=== PATIENT | female | born 1955 | race Caucasian/White ===

== ENCOUNTER 2020-02-18 13:07 | Outpatient (CLI) | payer MEDICARE, OTHER, SELFPAY ==
--- NOTE | 2020-02-18 13:11 | CT_ITS ---
WS: [id number] LDCT LUNG CANCER SCREENING TECHNIQUE: Noncontrast CT of the chest with coronal and sagittal reformatted images. CLINICAL INFORMATION: NICOTINE DEPENDENCE LUNG SCREENING COMPARISON: CT chest 4 15,019 and multiple prior examinations dating back to 2017. DLP: 49.04 mGy.cm DIvol: 1.[address] scans at [facility] use at least one of these dose optimization techniques: automat ed exposure control; mA and/or kV adjustment per patient size (includes targeted exams where dose is matched to clinical indication); or iterative reconstruction. FINDINGS: Multiple noncalcified pulmonary nodules the largest in the right upper lobe measuring 12 mm unchanged since 2017. Multiple smaller subcentimeter noncalcified pulmonary nodules appear stable. Additional notable 6 mm pulmonary nodule in the right lower lobe medially. This is also stable. No mediastinal o r hilar lymphadenopathy. Normal caliber thoracic aorta. Normal GE junction. CT/CT lung screening [id number] IMPRESSION: LUNG-RADS: 2-Benign Appearance or Behavior FOLLOW UP: 12 Month: Continue annual screening with LDCT
== END 2020-02-18 13:08 | disposition home or self-care (01) ==
LOC: CT 13:09
PROVIDERS: PCP Family Medicine; Visit Provider Internal Medicine Critical Care Medicine
DX: Z12.2 Encounter for screening for malignant neoplasm of respiratory organs (principal); F17.210 Nicotine dependence, cigarettes, uncomplicated
CPT/HCPCS: G0297

== ENCOUNTER → 2020-03-10 13:22 | Outpatient (BNVA) | payer MEDICARE, OTHER, SELFPAY | PROVIDERS: PCP Family Medicine; Visit Provider Internal Medicine | DX: J44.9 Chronic obstructive pulmonary disease, unspecified (principal); Z20.828 Contact with and (suspected) exposure to other viral communicable diseases | CPT/HCPCS: 87635 ==

== ENCOUNTER 2020-03-15 06:48 | Outpatient (CLI) | payer MEDICARE, OTHER, SELFPAY ==
[2020-03-15 08:24] LABS: Basophils # 0.1 10^3/uL (0.0-0.1); Basophils % 0.6 %; Eosinophils # 0.2 10^3/uL (0.0-0.8); Eosinophils % 2.2 %; Hematocrit 63.4 % (37.0-47.0); Hemoglobin 19.4 g/dL (11.5-15.3); Lymphocytes # 2.9 10^3/uL (0.8-4.8); Lymphocytes % 37.1 %; Mean Corpuscular HGB Conc 30.6 g/dL (30.0-36.0); Mean Corpuscular Hemoglobin 27.1 pg (28.0-34.0); Mean Corpuscular Volume 88.4 fL (81-99); Mean Platelet Volume 8.4 fL (7.4-10.4); Monocytes # 0.4 10^3/uL (0.2-0.9); Monocytes % 4.9 %; Neutrophils # 4.23 10^3/uL (1.8-7.7); Neutrophils % 54.8 %; Nucleated Red Blood Cells % 0 %; Platelet Count 184 10^3/cmm (130-400); Red Blood Count 7.17 10^6/uL (4.1-5.3); Red Cell Distribution Width 20.5 % (12.1-15.1); White Blood Count 7.7 10^3/uL (4.0-10.0)
[2020-03-15 10:03] VITALS: BP 109/71
--- NOTE | 2020-03-15 10:09 | PFTS_ITS ---
Date of Study:03/15/20 Date of Dictation: MECHANICS: Forced vital capacity (FVC) is reduced. Forced expiratory volume in one second (FEV1) is reduced. FEV1/FVC is reduced. FLOW VOLUME LOOP: Reduced flow at all lung volumes with significant scooping. LUNG VOLUMES: Total lung capacity (TLC) is normal. Residual volume (RV) is increased. DIFFUSING CAPACITY FOR CARBON MONOXIDE: Moderately reduced. INTERPRETATION: The spirometry is consistent with moderate obstruction. There is a significant postbronchodilator response. Lung volumes are consistent with air trapping. Gas exchange (DLCO) is moderately reduced. MTDD
[2020-03-15 10:24] LABS: Alanine Aminotransferase 18 U/L (0-33); Albumin Level 3.8 g/dL (3.5-5.2); Alkaline Phosphatase 85 IU/L (35-105); Anion Gap 14.1 (5-19); Aspartate Amino Transferase 18 U/L (0-32); Blood Urea Nitrogen 15 mg/dL (8-23); Calcium 9.8 mg/dL (8.5-10.5); Carbon Dioxide 31 mmol/L (22-29); Chloride 96 mmol/L (98-107); Globulin 3.6 g/dL (1.3-4.6); Glomerular Filtration Rate 62.8 mL/min (90-130); Glucose 140 mg/dL (65-115); Osmolality Calculated 287 mOsm/kg (285-295); Potassium 4.1 mmol/L (3.5-5.1); Sodium 137 mmol/L (136-145); Total Bilirubin 0.4 mg/dL (0.15-1.2); Total Protein 7.4 g/dL (6.6-8.7)
== END 2020-03-15 06:49 | disposition home or self-care (01) ==
LOC: RT 06:48
PROVIDERS: PCP Family Medicine; Visit Provider Internal Medicine Critical Care Medicine
DX: J44.9 Chronic obstructive pulmonary disease, unspecified (principal)
CPT/HCPCS: 36415; 80053; 85025; 94060; 94618; 94726; 94729; J7611

== ENCOUNTER 2020-03-30 11:00 | Outpatient (CLI) | payer MEDICARE, OTHER, SELFPAY | END 2020-03-30 11:01 | disposition home or self-care (01) | LOC: SLEEP 04-03 11:35 | PROVIDERS: PCP Family Medicine; Visit Provider Internal Medicine Critical Care Medicine | DX: J96.11 Chronic respiratory failure with hypoxia (principal) | CPT/HCPCS: 94762 ==

== ENCOUNTER 2020-03-30 11:17 | Outpatient (CLI) | payer MEDICARE, OTHER, SELFPAY ==
[2020-03-30 12:06] LABS: Alanine Aminotransferase 17 U/L (0-33); Albumin Level 3.5 g/dL (3.5-5.2); Alkaline Phosphatase 85 IU/L (35-105); Anion Gap 14.8 (5-19); Aspartate Amino Transferase 14 U/L (0-32); Blood Urea Nitrogen 25 mg/dL (8-23); Calcium 9.8 mg/dL (8.5-10.5); Carbon Dioxide 29 mmol/L (22-29); Chloride 99 mmol/L (98-107); Globulin 3.3 g/dL (1.3-4.6); Glucose 163 mg/dL (65-115); Osmolality Calculated 296 mOsm/kg (285-295); Potassium 3.8 mmol/L (3.5-5.1); Sodium 139 mmol/L (136-145); Total Bilirubin 0.4 mg/dL (0.15-1.2); Total Protein 6.8 g/dL (6.6-8.7)
[2020-03-31 17:13] LABS: Erythropoietin 19.6 mIU/mL (2.6-18.5)
== END 2020-03-30 11:18 | disposition home or self-care (01) ==
LOC: LAB 11:27
PROVIDERS: PCP Family Medicine; Visit Provider Internal Medicine Critical Care Medicine
DX: D75.1 Secondary polycythemia (principal); J44.9 Chronic obstructive pulmonary disease, unspecified
CPT/HCPCS: 80053; 82668

== ENCOUNTER 2020-10-08 01:28 | Emergency (ER) | payer MEDICARE, OTHER, SELFPAY ==
--- NOTE | 2020-10-08 01:29 | XRR_ITS ---
PROCEDURE INFORMATION: Exam: XR Chest Exam date and time: 10/08/2020 1:35 AM Age: 65 years old Clinical indication: Dyspnea; Additional info: Sob/dyspnea TECHNIQUE: Imaging protocol: XR of the chest. Views: 1 view. COMPARISON: CT chest w con* [id number] 10/05/2018 9:28 AM FINDINGS: Lungs: There is some indistinctness of the pulmonary vasculature seen. There are increased interstitial opacities present bilaterally , findings that could represent pulmonary edema. Additionally, there are patchy and strandy opacity seen in the lung bases bilaterally, right more prominent than left, findings that could represent superimposed bilateral pneumonia. Pleural spaces: Unremarkable. No pleural effusion. No pneumothorax. Heart/Mediastinum: Unremarkable. No cardiomegaly. Bones/joints: Unremarkable. XR/XR chest 1V portable [id number] IMPRESSION: 1. Indistinct pulmonary vasculature and increased interstitial opacities may represent pulmonary edema. 2. Patchy and strandy opacities in the lower hemithoraces may represent atelectasis although bilateral basilar pneumonia cannot be excluded.
--- NOTE | 2020-10-08 01:30 | ECG_ITS ---
[facility] Test Date: 2020-10-08 Pat Name: Ximena Montero Department: Room: Gender: Female Yard Supervisor: : 1955 Requested By: Lynda Montalvo Order Number: [id number] Nahum MD: Yana Cantor M.D. Measurements Intervals [place] Rate: 104 P: 62 CA: 136 QRS: 106 QRSD: 99 T: 48 QT: 329 QTc: 435 Interpretive Statements SINUS TACHYCARDIA RIGHT AXIS DEVIATION [QRS AXIS > 100] No previous ECG available for comparison Electronically Signed On 10-08-2020 10:48:49 CDT by Yana Cantor M.D. [id number]
[2020-10-08 01:35] VITALS: PULSE 110; RESP 26; TEMP 36.4; O2SAT 84; BMI 39.6
--- NOTE | 2020-10-08 01:47 | W.ED.SOB ---
HPI - SOB/Dyspnea General: Chief Complaint: Shortness of Breath/Dyspnea Stated Complaint: DIFFICULTY BREATHING Time Seen by Provider: 10/08/20 01:40 Source: patient Mode of arrival: ambulatory Limitations: no limitations History of Present Illness: HPI Narrative: 65-year-old female has a long history of COPD states that over the last day she has had increasing wheezing and dyspnea. She states she gets COPD exacerbations every time this year due to the season change in allergens. She states that she does have breathing treatments at home but did not take 1 today. She denies any fever. She had a dry cough. Denies any chest pain. Denies any worsening improving factors. MD elicited complaint: shortness of breath Associated symptoms: Deny abdominal pain, chest pain, fever(s), nausea or vomiting Review of Systems Const: Denies: fever(s), chills, body aches or change in appetite Eyes: Denies: blurry vision or eye discomfort ENMT: Denies: throat pain or dental pain Card: Denies: chest pain Resp: Reports: dyspnea and wheezing GI: Denies: abdominal pain, nausea, vomiting or diarrhea : Denies: dysuria Musc: Denies: neck pain or back pain Skin/Breast: Denies: rash Neuro: Denies: headache(s) Psych: Denies: depression Moses/Lymph: Denies: easy bruising All/Imm: Denies: urticaria PFSH ED PFSH: Medical History (Updated 10/08/20 @ 02:24 by Vivian Lennon MD) Aneurysm Chronic obstructive pulmonary disease Lung nodule Thyroid nodule Ulnar nerve disease Surgical History H/O exploratory laparotomy H/O knee surgery H/O left wrist surgery H/O shoulder surgery History of carpal tunnel surgery History of cholecystectomy History of hysterectomy Hx of tonsillectomy S/P excision of vocal cord nodule Family History Other CAD (coronary artery disease) Cancer Diabetes Social History Smoking and tobacco status: current every day smoker cigarettes Packs smoked per day: 1.5 Years cigarettes smoked: 45 Quit status (tobacco): has tried quititng Number of times tried to quit tobacco: 20 Second hand smoke exposure: No Smoking risk assessment/counseling performed?: Yes Alcohol intake: never Lives independently: Yes Household members: family Marital status: Current occupational status: disabled History of recent travel: No Current gender identity: Female Physical Exam Const: COMMON NORMALS: no acute distress, patient oriented x3 and healthy appearing HENMT: COMMON NORMALS: normocephalic and atraumatic HEAD & SCALP: normocephalic and atraumatic Eye: COMMON NORMALS: Equal, round and reactive pupils present and EOMs intact bilaterally PUPIL: Yes Equal, round and reactive pupils present Neck/C-Spine: COMMON NORMALS: full ROM and supple Chest: COMMONS NORMALS: normal inspection of the chest and normal palpation of entire chest wall Resp: COMMON NORMALS: normal respiratory effort, No retractions, No use of accessory muscles and clear to auscultation bilaterally AUSCULTATION: clear to auscultation bilaterally and wheezes Cardio: COMMON NORMALS: regular rate, regular rhythm and No murmurs present (Cardio) RATE: regular rate RHYTHM: regular rhythm GI: COMMON NORMALS: Normal to inspection, nondistended, normoactive bowel sounds present, Soft to palpation, non-tender and no masses PALPATION: Yes Soft to palpation Extremity: COMMON NORMALS: normal to inspection and full ROM Neuro: COMMON NORMALS: patient oriented x3, moves all extremities and no focal motor deficits Psych: COMMON NORMALS: mental status grossly normal, Normal thought process present and cooperative THOUGHT PROCESS: Normal thought process present Skin: COMMON NORMALS: no rashes or lesions noted and no wounds GENERAL SKIN EXAM: no rashes or lesions noted Course Vital Signs: Vital signs: Vital Signs Temperature 97.6 F 10/08/20 01:35 Pulse Rate 107 H 10/08/20 02:00 Respiratory Rate 20 H 10/08/20 01:59 Blood Pressure 146/80 10/08/20 01:59 Pulse Oximetry 94 10/08/20 01:59 MDM - SOB/Dyspnea MDM Narrative: Medical decision making narrative: Patient presents with COPD exacerbation. He has had a increased cough as well as will place on Keflex for possible bronchitis. She feels much improved here after breathing treatments. Patient was given IV steroids here. We will place her on prednisone at home as well. She is to follow-up with PCP and return if worsening. She understands agrees to plan. Lab Data: Labs: Lab Results 10/08/20 10/08/20 Range/Units 01:50 01:50 WBC 8.7 (4.0-10.0) 10^3/ uL RBC 6.83 H (4.1-5.3) 10^6/u L Hgb 19.6 H (11.5-15.3) g/dL Hct 62.1 H (37.0-47.0) % MCV 90.9 (81-99) fL MCH 28.7 (28.0-34.0) pg MCHC 31.6 (30.0-36.0) g/dL RDW 19.7 H (12.1-15.1) % Plt Count 191 (130-400) 10^3/c mm MPV 9.1 (7.4-10.4) fL Neut % (Auto) 83.0 % Lymph % (Auto) 9.9 % Wise % (Auto) 5.2 % Eos % (Auto) 0.5 % Baso % (Auto) 0.9 % Neut # (Auto) 7.21 (1.8-7.7) 10^3/u L Lymph # (Auto) 0.9 (0.8-4.8) 10^3/u L Wise # (Auto) 0.5 (0.2-0.9) 10^3/u L Eos # (Auto) 0.0 (0.0-0.8) 10^3/u L Baso # (Auto) 0.1 (0.0-0.1) 10^3/u L Nucleated RBC % (a uto) 0 % Nucleated RBCs # 0.0 /100WBC Sodium 134 L (136-145) mmol/L Potassium 4.1 (3.5-5.1) mmol/L Chloride 94 L (98-107) mmol/L Carbon Dioxide 31 H (22-29) mmol/L Anion Gap 13.1 (5-19) BUN 15 (8-23) mg/dL Creatinine 0.6 (0.5-0.9) mg/dL GFR Calculation 100.0 (90-130) mL/min Glucose 110 (65-115) mg/dL Calculated Osmolal ity 279 L (285-295) mOsm/k g Calcium 9.4 (8.5-10.5) mg/dL Total Bilirubin 0.7 (0.15-1.2) mg/dL AST 17 (0-32) U/L ALT 17 (0-33) U/L Alkaline Phosphata se 93 (35-105) IU/L Total Protein 7.6 (6.6-8.7) g/dL Albumin 4.0 (3.5-5.2) g/dL Globulin 3.6 (1.3-4.6) g/dL Imaging Data^: CXR: Attestation: I personally reviewed and interpreted this imaging study as follows: My impression: No acute abnormality EKG Data^: EKG 1: Attestation: I personally reviewed and interpreted this EKG as follows: EKG Interpretation Date: 10/08/20 EKG interpretation time: 02:06 Interpretation: sinus tach hr [address] or t wave abnormalities qrs 99 qtc 390 Discharge Plan Discharge Patient Disposition: Home Clinical Impression: Acute exacerbation of chronic obstructive airways disease Condition: Stable Prescriptions: New cephalexin 500 mg capsule 500 mg PO QID 7 Days Qty: 28 RF: 0 prednisone 50 mg tablet 50 mg PO DAILY Qty: 5 RF: 0 ondansetron 4 mg tablet,disintegrating 4 mg PO Q6H PRN (Reason: nausea and vomiting) Qty: 14 RF: 0 No Action potassium chloride [Klor-Con 10] 10 mEq tablet extended release 10 meq PO BID RF: 0 furosemide [Lasix] 20 mg tablet 10 mg PO BID PRN (Reason: edema) RF: 0 lisinopril-hydrochlorothiazide 10-12.5 mg tablet 1 tab PO DAILY RF: 0 cetirizine [Allergy Relief (cetirizine)] 10 mg tablet 10 mg PO DAILY PRNRF: 0 cholecalciferol (vitamin D3) 125 mcg (5,000 unit) capsule 125 mcg PO DAILY RF: 0 meloxicam 15 mg tablet 15 mg PO DAILY RF: 0 sucralfate [Carafate] 1 gram tablet 1 gm PO Q6H RF: 0 albuterol sulfate [ProAir HFA] 90 mcg/actuation HFA aerosol inhaler 2 puff INHALATION Q6H PRNRF: 0 ipratropium-albuterol 0.5 mg-3 mg(2.5 mg base)/3 mL solution for nebulization 3 ml INHALATION Q4H PRN (Reason: shortness of breath or wheezing) 90 Days Qty: 1620 RF: 3 azithromycin 250 mg tablet 250 mg PO .QOD 90 Days Qty: 45 RF: 3 Discharge Orders: Discharge ED (Routine); Ordered 10/08/20 Ordered By: Vivian Lennon Referrals: Gustavo Thompson MD [Primary Care Provider] - 1-3 days Discharge Diet: Advance as tolerated Discharge Activity: Resume usual activity Patient Instructions: Chronic Obstructive Pulmonary Disease (ED), Chronic Bronchitis (ED) Coding Level of Care Code ED Maintenance Supervisor 2Nd Shift for Clareg Fwd Exam Comprehensive
[2020-10-08 01:55] VITALS: PULSE 111; RESP 24; O2SAT 94
[2020-10-08] MEDS: ipratropium-albuterol 3 mL Neb INHALATION (01:55)
[2020-10-08 01:58] LABS: Basophils # 0.1 10^3/uL (0.0-0.1); Basophils % 0.9 %; Eosinophils % 0.5 %; Hematocrit 62.1 % (37.0-47.0); Hemoglobin 19.6 g/dL (11.5-15.3); Lymphocytes # 0.9 10^3/uL (0.8-4.8); Lymphocytes % 9.9 %; Mean Corpuscular HGB Conc 31.6 g/dL (30.0-36.0); Mean Corpuscular Hemoglobin 28.7 pg (28.0-34.0); Mean Corpuscular Volume 90.9 fL (81-99); Mean Platelet Volume 9.1 fL (7.4-10.4); Monocytes # 0.5 10^3/uL (0.2-0.9); Monocytes % 5.2 %; Neutrophils # 7.21 10^3/uL (1.8-7.7); Nucleated Red Blood Cells % 0 %; Platelet Count 191 10^3/cmm (130-400); Red Blood Count 6.83 10^6/uL (4.1-5.3); Red Cell Distribution Width 19.7 % (12.1-15.1); White Blood Count 8.7 10^3/uL (4.0-10.0)
[2020-10-08 01:59] VITALS: BP 146/80; PULSE 105; RESP 20; O2SAT 94
[2020-10-08 02:00] VITALS: PULSE 107
--- NOTE | 2020-10-08 02:11 | PC.NURSE ---
EKG taken and given to Dr. Lennon
[2020-10-08 02:19] LABS: Alanine Aminotransferase 17 U/L (0-33); Alkaline Phosphatase 93 IU/L (35-105); Anion Gap 13.1 (5-19); Aspartate Amino Transferase 17 U/L (0-32); Blood Urea Nitrogen 15 mg/dL (8-23); Calcium 9.4 mg/dL (8.5-10.5); Carbon Dioxide 31 mmol/L (22-29); Chloride 94 mmol/L (98-107); Globulin 3.6 g/dL (1.3-4.6); Glucose 110 mg/dL (65-115); Osmolality Calculated 279 mOsm/kg (285-295); Potassium 4.1 mmol/L (3.5-5.1); Sodium 134 mmol/L (136-145); Total Bilirubin 0.7 mg/dL (0.15-1.2); Total Protein 7.6 g/dL (6.6-8.7)
[2020-10-08 02:41] VITALS: BP 92/67; PULSE 108; RESP 20; O2SAT 94
== END 2020-10-08 02:41 | disposition home or self-care (01) ==
PROVIDERS: Nurse Practitioner Family; Emergency Provider Emergency Medicine; PCP Family Medicine
DX: J44.1 Chronic obstructive pulmonary disease with (acute) exacerbation (principal); F17.210 Nicotine dependence, cigarettes, uncomplicated
CPT/HCPCS: 71045; 80053; 85025; 93005; 94640; 96374; 99284; J2930; J7611

== ENCOUNTER 2021-01-26 14:31 | Outpatient (CLI) | payer MEDICARE, OTHER, SELFPAY ==
--- NOTE | 2021-01-26 | USCV_ITS ---
Ximena Montero Age: 65 Gender: F : 1955 Exam Date: 01/26/2021 14:58 Ordering Phys: Gustavo Thompson MD Technologist: Terese Salamanca Exam Location: [facility] [place] Indication: RLE PAIN AND SWELLING HISTORY: Lower extremity swelling lower extremity pain. PROCEDURES: Venous duplex imaging was performed in only the right lower extremity. The following venous structures were evaluated: common femoral vein, profunda vein, proximal portion of the greater saphenous vein, superficial femoral vein, and the popliteal vein. In addition, the posterior tibial and peroneal trunk were evaluated. Serial compression, augmentation maneuvers, and spectral Doppler flow evaluation were performed. FINDINGS: Non-compressible , dilated Gastrocnemius vein seen. Normal 2-D Doppler and augmentation and compressibility throughout the lower extremity venous structures. Additional imaging through the proximal calf veins also reveals no thrombus. Limited evaluation of the greater saphenous vein is patent with no thrombus.. Spoke with Dr. Thompson at 1510 to direct patient to Pharmacy to cook pickled meat Blood thinners CONCLUSIONS No DVT right lower extremity. Right superficial thrombophlebitis. Report called by sample processor. Dr. Montserrat Buchanan DO (Electronically Signed) Final Date: 26 January 2021 15:32 S
== END 2021-01-26 14:32 | disposition home or self-care (01) ==
PROVIDERS: PCP Family Medicine; Visit Provider Family Medicine
DX: M79.89 Other specified soft tissue disorders (principal); M79.604 Pain in right leg; I80.01 Phlebitis and thrombophlebitis of superficial vessels of right lower extremity
CPT/HCPCS: 93971

== ENCOUNTER 2021-12-03 10:13 | Emergency (ER) | payer MEDICARE, SELFPAY ==
[2021-12-03 10:15] VITALS: BP 108/56; PULSE 100; RESP 18; TEMP 36.5; O2SAT 80; BMI 39.1
--- NOTE | 2021-12-03 10:26 | PC.NURSE ---
PATIENT REFUSING TO CHANGE OXYGEN TO WALL OXYGEN- PATIENT STATES SHE IS STAYING ON HER HOME OXYGEN. PATIENT ALSO STATES THAT SHE IS NOT GOING TO BE SEEN BY DR QUAN- 'HE PISSES ME OFF!'
--- NOTE | 2021-12-03 10:30 | XR_ITS ---
WS: [id number] PORTABLE CHEST HISTORY: fluid retention COMPARISON: 10/08/2020 Mild pulmonary hyperinflation. Diffuse thickening of the interstitium. No focal area of consolidation . No nodule. No pleural effusion or pneumothorax. Cardiac size: Normal. Mediastinum/Aorta: Normal mediastinum. No osseous abnormality seen. XR/XR chest 1V portable [id number] IMPRESSION: 1. Mild emphysema. 2. Diffuse interstitial thickening probably related to chronic interstitial eloina ng disease as similar findings were seen on the prior study. A small amount of interstitial edema may appear similar.
--- NOTE | 2021-12-03 10:31 | ECG_ITS ---
[facility] Test Date: 2021-12-03 Pat Name: Ximena Montero Department: Room: Gender: Female Supervisor Looping: : 1955 Requested By: Daisy Montiel Order Number: [id number] Nahum MD: Danyelle Gann M.D. Measurements Intervals [place] Rate: 89 P: 69 ID: [id number] QRS: 145 QRSD: 89 T: 51 QT: 365 QTc: 444 Interpretive Statements SINUS RHYTHM RIGHT AXIS DEVIATION [QRS AXIS > 100] POSSIBLE ANTERIOR MYOCARDIAL INFARCTION , OF INDETERMINATE AGE [30 ms Q WAVE IN V3/V4, OR R < 0.2 mV IN V4] Compared to ECG 10/08/2020 02:06:57 Myocardial infarct finding now present Sinus tachycardia no longer present Electronically Signed On 12-03-2021 19:40:54 CDT by Danyelle Gann M.D. [id number]
--- NOTE | 2021-12-03 10:37 | ED_ITS ---
HPI - Extremity Problem General: Chief complaint: Extremity Problem,Nontraumatic Stated complaint: fluid retention Time Seen by Provider: 12/03/21 10:22 Source: patient Mode of arrival: wheelchair Limitations: no limitations History of Present Illness: Patient is a 66-year-old female with a history of COPD/emphysema/chronic respiratory failure on 4L O2 continuously, HTN, bilateral leg swelling, polycythemia, chronic smoker who presents to ED today with a complaint of left lower leg swelling. Patient states she chronically has swelling to her bilateral lower legs and states they often do seem to alternate with one leg always being worse than the other. She treats with Lasix 40 mg twice daily. Patient states over the past several days she has noticed worsening swelling to her left leg. No injury or trauma. She does not complain of shortness of breath or difficulty breathing. Patient states she normally sats in the mid 80s on her 4 L of oxygen at home. She continually tells me that my breathing is normal and does not want any evaluation for that. MD Complaint: extremity pain and extremity swelling Onset (ago): day(s) Pain Consistency: constant Location: left and lower extremity Radiation: none Exacerbating factors: weight bearing and walking Associated symptoms: Reports no associated symptoms; Deny chest pain, fever(s) or rash Review of Systems Const: Denies: fever(s), chills, body aches, fatigue or malaise Eyes: Denies: change in vision or blurry vision Card: Reports: edema (chronic), swelling of feet/ankles, dyspnea on exertion (chronic) and orthopnea (chronic); Denies: chest pain, palpitations, irregular heart rhythm, lightheadedness, syncope or pre-syncope Resp: Reports: dyspnea (at baseline) and productive cough (chronic); Denies: pain on inspiration GI: Denies: abdominal pain, nausea, vomiting, heartburn or diarrhea : Denies: dysuria Musc: Reports: extremity pain and extremity swelling (L LE); Denies: neck pain, back pain, joint pain, joint swelling or joint redness Skin/Breast: Denies: rash Neuro: Denies: headache(s), numbness in extremities, weakness in extremities or sensory changes PFS ED PFSH: Medical History Aneurysm Chronic obstructive pulmonary disease Lung nodule Thyroid nodule Ulnar nerve disease Surgical History H/O exploratory laparotomy H/O knee surgery H/O left wrist surgery H/O shoulder surgery History of carpal tunnel surgery History of cholecystectomy History of hysterectomy Hx of tonsillectomy S/P excision of vocal cord nodule Family History Other CAD (coronary artery disease) Cancer Diabetes Social History Smoking and tobacco status: current every day smoker cigarettes Packs smoked per day: 1.5 Years cigarettes smoked: 46 Quit status (tobacco): has tried quititng Number of times tried to quit tobacco: 20 Second hand smoke exposure: Yes Smoking risk assessment/counseling performed?: Yes Alcohol intake: never Counseling given: No Counseling given: No Lives independently: Yes Household members: family Marital status: Current occupational status: disabled History of recent travel: No Current gender identity: Female Physical Exam Const: COMMON NORMALS: no acute distress, patient oriented x3, no limitations and alert GENERAL APPEARANCE: cooperative ORIENTATION/CONSCIOUSNESS: Yes awake, Yes oriented to person, Yes oriented to place and Yes oriented to time HENMT: COMMON NORMALS: normocephalic and atraumatic HEAD & SCALP: normal to inspection, normocephalic and atraumatic Resp: COMMON NORMALS: normal respiratory effort AUSCULTATION: diminished lung sounds Cardio: COMMON NORMALS: regular rate and regular rhythm RATE: regular rate RHYTHM: regular rhythm Extremity: GENERAL: Yes normal exam except as noted OTHER: bilateral L>R lower extremity edema; she has palpable DP/PT pulses bilaterally with normal cap refill; sensory intact; no bony abnormalities; no skin lesions present Neuro: COMMON NORMALS: patient oriented x3, moves all extremities, no focal motor deficits and no sensory deficits noted SENSORIUM/ORIENTATION: Yes alert, Yes oriented to person, Yes oriented to place and Yes oriented to time Course Vital Signs: Vital signs: Vital Signs Temperature 97.7 F 12/03/21 10:15 Pulse Rate 96 12/03/21 12:20 Respiratory Rate 20 H 12/03/21 10:49 Blood Pressure 108/71 12/03/21 12:20 Pulse Oximetry 96 12/03/21 12:20 MDM - Extremity (Nontraumatic) Medical Decision Making Patient's vital signs are stable. She is satting in the 90s on 4L currently which she states is at or better than her baseline. She has no complaints of shortness of breath. On her blood work she has a hemoglobin of 20.5. There is a history of polycythemia looking at previous documentation however patient seems surprised when I mention this. She states she has never received any form of evaluation and has never had phlebotomy for this. It does seem like its been present for quite a while (at least two years) looking at previous lab values. We will refer her to hematology for this. BNP is only 140. CXR showing chronic findings. US of her left lower extremity negative for DVT. She was given a dose of IV Lasix here. We will increase her Lasix at home to 60mg BID x 3 days. She can then resume normal dosing. I want her to follow up with her account manager education/PCP within the next 3-5 days for re-evaluation. Return to ED precautions verbally given. Lab Data : 12/03/21 11:00 12/03/21 11:00 Radiology Impressions Chest X-Ray 12/03/21 10:30 IMPRESSION: 1. Mild emphysema. 2. Diffuse interstitial thickening probably related to chronic interstitial lung disease as similar findings were seen on the prior study. A small amount of interstitial edema may appear similar. Laboratory Results WBC 8.7 10^3/uL (4.0-10.0) 12/03/21 11:00 RBC 7.52 10^6/uL (4.1-5.3) H 12/03/21 11:00 Hgb 20.5 g/dL (11.5-15.3) H 12/03/21 11:00 Hct 65.6 % (37.0-47.0) H 12/03/21 11:00 MCV 87.2 fl (81-99) 12/03/21 11:00 MCH 27.3 pg (28.0-34.0) L 12/03/21 11:00 MCHC 31.3 g/dL (30.0-36.0) 12/03/21 11:00 RDW 21.2 % (12.1-15.1) H 12/03/21 11:00 Plt Count 200 10^3/cmm (130-400) 12/03/21 11:00 MPV 9.3 fL (7.4-10.4) 12/03/21 11:00 Neut % (Auto) 71.3 % 12/03/21 11:00 Lymph % (Auto) 20.4 % 12/03/21 11:00 [place] % (Auto) 6.1 % 12/03/21 11:00 Eos % (Auto) 0.8 % 12/03/21 11:00 Baso % (Auto) 0.9 % 12/03/21 11:00 Neut # (Auto) 6.19 10^3/uL (1.8-7.7) 12/03/21 11:00 Lymph # (Auto) 1.8 10^3/uL (0.8-4.8) 12/03/21 11:00 [place] # (Auto) 0.5 10^3/uL (0.2-0.9) 12/03/21 11:00 Eos # (Auto) 0.1 10^3/uL (0.0-0.8) 12/03/21 11:00 Baso # (Auto) 0.1 10^3/uL (0.0-0.1) 12/03/21 11:00 Nucleated RBC % (auto) 0 % 12/03/21 11:00 Nucleated RBCs # 0.0 /100WBC 12/03/21 11:00 Sodium 131 mmol/L (136-145) L 12/03/21 11:00 Potassium 4.4 mmol/L (3.5-5.1) 12/03/21 11:00 Chloride 91 mmol/L (98-107) L 12/03/21 11:00 Carbon Dioxide 28 mmol/L (22-29) 12/03/21 11:00 Anion Gap 16.4 (5-19) 12/03/21 11:00 BUN 23 mg/dL (8-23) 12/03/21 11:00 Creatinine 0.7 mg/dL (0.5-0.9) 12/03/21 11:00 GFR Calculation 83.5 mL/min (90-130) L 12/03/21 11:00 Glucose 116 mg/dL (65-115) H 12/03/21 11:00 Calculated Osmolality 277 mOsm/kg (285-295) L 12/03/21 11:00 Calcium 9.4 mg/dL (8.5-10.5) 12/03/21 11:00 Total Bilirubin 0.6 mg/dL (0.15-1.2) 12/03/21 11:00 AST 18 U/L (0-32) 12/03/21 11:00 ALT 17 U/L (0-33) 12/03/21 11:00 Alkaline Phosphatase 107 IU/L (35-105) H 12/03/21 11:00 NT-Pro-B Natriuret Pep 140 pg/mL (0-125) H 12/03/21 11:00 Total Protein 8.0 g/dL (6.6-8.7) 12/03/21 11:00 Albumin 3.9 g/dL (3.5-5.2) 12/03/21 11:00 Globulin 4.1 g/dL (1.3-4.6) 12/03/21 11:00 Urine Color Yellow (Yellow) 12/03/21 11:20 Urine Appearance Clear (CLEAR) 12/03/21 11:20 Urine pH 7 (5-7) 12/03/21 11:20 Ur Specific Walker 1.010 (1.005-1.030) 12/03/21 11:20 Urine Protein Neg (Negative) 12/03/21 11:20 Urine Glucose (UA) Norm (Normal) 12/03/21 11:20 Urine Ketones Negative (Negative) 12/03/21 11:20 Urine Blood Neg (Negative) 12/03/21 11:20 Urine Nitrate Negative (Negative) 12/03/21 11:20 Urine Bilirubin Neg (Negative) 12/03/21 11:20 Urine Urobilinogen Norm mg/dL (Negative) 12/03/21 11:20 Ur Leukocyte Esterase Negative (Negative) 12/03/21 11:20 Discharge Plan Discharge Patient Disposition: Home Clinical Impression: Edema of left lower extremity, Polycythemia Condition: Stable Prescriptions: No Action potassium chloride [Klor-Con 10] 10 mEq tablet extended release 10 meq PO BID 0RF cetirizine [Allergy Relief (cetirizine)] 10 mg tablet 10 mg PO DAILY PRN0RF cholecalciferol (vitamin D3) 125 mcg (5,000 unit) capsule 125 mcg PO DAILY 0RF albuterol sulfate [ProAir HFA] 90 mcg/actuation HFA aerosol inhaler 2 puff INHALATION Q6H PRN0RF furosemide [Lasix] 20 mg tablet 20 mg PO BID PRN (Reason: edema) 0RF Eliquis 5 mg tablet 5 mg PO BID 0RF lisinopril-hydrochlorothiazide 10-12.5 mg tablet 0.5 tab PO DAILY 0RF clotrimazole 10 mg carmle 10 mg mucous membrane TID 10 Days Qty: 30 12RF Rx Instructions: Place in mouth and dissolve 3 times daily for 10 days when active yeast infection present in the mouth. azithromycin 250 mg tablet 250 mg PO .QOD 90 Days Qty: 45 3RF ipratropium-albuterol 0.5 mg-3 mg(2.5 mg base)/3 mL solution for nebulization 3 ml INHALATION Q4H PRN (Reason: shortness of breath or wheezing) 90 Days Qty: 1620 3RF albuterol sulfate 2.5 mg /3 mL (0.083 %) solution for nebulization 2.5 mg inhalation QID PRN (Reason: shortness of breath or wheezing) Qty: 90 3RF Discharge Orders: Discharge ED (Routine); Ordered 12/03/21 Ordered By: Daisy Montiel Referrals: Gustavo Thompson MD [Primary Care Provider] - Coding Level of Care Code ED Oxyacetylene Burner for Kayy Ashford
--- NOTE | 2021-12-03 10:38 | USCV_ITS ---
Ximena Montero Age: 66 Gender: F : 1955 Exam Date: 12/03/2021 11:20 Ordering Phys: Daisy Montiel Technologist: Luis Felipe Ruiz Exam Location: [facility] [place] Indication: lt leg pain and swelling PROCEDURES: Venous duplex imaging was performed in only the left lower extremity. The following venous structures were evaluated: common femoral vein, profunda vein, proximal portion of the greater saphenous vein, superficial femoral vein, and the popliteal vein. In addition, the posterior tibial and peroneal trunk were evaluated. FINDINGS: Normal 2-D Doppler and augmentation and compressibility throughout the lower extremity venous structures. Additional imaging through the proximal calf veins also reveals no thrombus. Limited evaluation of the greater saphenous vein is patent with no thrombus.. CONCLUSIONS No evidence of left lower extremity DVT. Dre Agosto MD (Electronically Signed) Final Date: 03 December 2021 13:59 S
[2021-12-03 10:49] VITALS: BP 110/73; PULSE 89; RESP 20; O2SAT 90
--- NOTE | 2021-12-03 10:56 | PC.NURSE ---
EKG done and shown to ER FOREIGN POLICY OFFICER
[2021-12-03 11:14] LABS: Basophils # 0.1 10^3/uL (0.0-0.1); Basophils % 0.9 %; Eosinophils # 0.1 10^3/uL (0.0-0.8); Eosinophils % 0.8 %; Hematocrit 65.6 % (37.0-47.0); Hemoglobin 20.5 g/dL (11.5-15.3); Lymphocytes # 1.8 10^3/uL (0.8-4.8); Lymphocytes % 20.4 %; Mean Corpuscular HGB Conc 31.3 g/dL (30.0-36.0); Mean Corpuscular Hemoglobin 27.3 pg (28.0-34.0); Mean Corpuscular Volume 87.2 fl (81-99); Mean Platelet Volume 9.3 fL (7.4-10.4); Monocytes # 0.5 10^3/uL (0.2-0.9); Monocytes % 6.1 %; Neutrophils # 6.19 10^3/uL (1.8-7.7); Neutrophils % 71.3 %; Nucleated Red Blood Cells % 0 %; Platelet Count 200 10^3/cmm (130-400); Red Blood Count 7.52 10^6/uL (4.1-5.3); Red Cell Distribution Width 21.2 % (12.1-15.1); White Blood Count 8.7 10^3/uL (4.0-10.0)
[2021-12-03 11:27] LABS: Add Urine Microscopic? NO; Charge for UA Resulting for Rev
[2021-12-03 11:36] LABS: Bilirubin Urine Neg (Negative); Blood Urine Neg (Negative); Glucose Urine UA Norm (Normal); Ketones Urine Negative (Negative); Leukocyte Esterase Urine Negative (Negative); Nitrate Urine Negative (Negative); Protein Urine Neg (Negative); Urine Appearance Clear (CLEAR); Urine Color Yellow (Yellow); Urobilinogen Urine Norm (Negative); pH Urine 7 (5-7)
[2021-12-03 11:41] LABS: Alanine Aminotransferase 17 U/L (0-33); Albumin Level 3.9 g/dL (3.5-5.2); Alkaline Phosphatase 107 IU/L (35-105); Anion Gap 16.4 (5-19); Aspartate Amino Transferase 18 U/L (0-32); Blood Urea Nitrogen 23 mg/dL (8-23); Calcium 9.4 mg/dL (8.5-10.5); Carbon Dioxide 28 mmol/L (22-29); Chloride 91 mmol/L (98-107); Globulin 4.1 g/dL (1.3-4.6); Glomerular Filtration Rate 83.5 mL/min (90-130); Glucose 116 mg/dL (65-115); NT Pro B Type Natriuretic Pept 140 pg/mL (0-125); Osmolality Calculated 277 mOsm/kg (285-295); Potassium 4.4 mmol/L (3.5-5.1); Sodium 131 mmol/L (136-145); Total Bilirubin 0.6 mg/dL (0.15-1.2)
[2021-12-03] MEDS: FUROsemide 10 mg/mL SDV 4mL 60 MG IVP (12:10)
[2021-12-03 12:20] VITALS: BP 108/71; PULSE 96; O2SAT 96
--- NOTE | 2021-12-04 10:12 | DCPLANNER ---
Addendum entered by Kim Roland 01/24/22 10:52: Patient had a follow up appointment with hematology - appointment cancelled Original Note: manager application had message to schedule a follow up appointment for patient with hematology. manager application called [facility], park activities coordinator, gave clinic patients information. A follow up appointment was scheduled for Friday, December 17, 2021 at 9:[address] Mcdonald. Clinic will call patient with appointment information.
== END 2021-12-03 12:46 | disposition home or self-care (01) ==
PROVIDERS: Emergency Provider Physician Assistant; PCP Family Medicine
DX: R60.0 Localized edema (principal); D75.1 Secondary polycythemia; J44.9 Chronic obstructive pulmonary disease, unspecified; F17.210 Nicotine dependence, cigarettes, uncomplicated; Z99.81 Dependence on supplemental oxygen
CPT/HCPCS: 71045; 80053; 81003; 83880; 85025; 93005; 93971; 96374; 99285; J1940

== ENCOUNTER → 2021-12-11 14:15 | Outpatient (BNVA) | payer MEDICARE, SELFPAY | PROVIDERS: PCP Family Medicine; Visit Provider Family Medicine | DX: R25.2 Cramp and spasm (principal) | CPT/HCPCS: 83735; 84132 ==

== ENCOUNTER 2022-01-22 12:32 | Outpatient (CLI) | payer MEDICARE, SELFPAY ==
--- NOTE | 2022-01-22 12:30 | USCV_ITS ---
Ximena Montero Age: 66 Gender: F : 1955 Exam Date: 01/22/2022 12:55 Ordering Phys: Gustavo Thompson MD Technologist: MARCO Exam Location: [facility] [place] Indication: Leg pain and swelling HISTORY: hx of rt gostroc dvt 02-09-21. Last scan on [facility] PROCEDURES: Venous duplex imaging was performed in bilateral lower extremities FINDINGS: The veins of the right lower extremity are readily compressible with normal venous flow dynamics including spontaneous flow, respiratory phasic variation and augmentation. The veins of the left lower extremity are readily compressible with normal venous flow dynamics including spontaneous flow, respiratory phasic variation and augmentation. CONCLUSIONS No evidence of right lower extremity DVT. No evidence of left lower extremity DVT. Dre Agosto MD (Electronically Signed) Final Date: 23 January 2022 09:16 S
== END 2022-01-22 12:33 | disposition home or self-care (01) ==
PROVIDERS: PCP Family Medicine; Visit Provider Family Medicine
DX: M79.89 Other specified soft tissue disorders (principal); M79.606 Pain in leg, unspecified
CPT/HCPCS: 93970

== ENCOUNTER → 2022-03-07 09:09 | Outpatient (BNVA) | payer MEDICARE, SELFPAY | PROVIDERS: PCP Family Medicine; Visit Provider Family Medicine | DX: D22.9 Melanocytic nevi, unspecified (principal) | CPT/HCPCS: 88304 ==

== ENCOUNTER → 2022-05-06 12:34 | Outpatient (BNVA) | payer MEDICARE, SELFPAY | PROVIDERS: PCP Family Medicine; Visit Provider Family Medicine | DX: Z51.81 Encounter for therapeutic drug level monitoring (principal); R73.03 Prediabetes; M79.646 Pain in unspecified finger(s); J96.11 Chronic respiratory failure with hypoxia; J44.9 Chronic obstructive pulmonary disease, unspecified | CPT/HCPCS: 80053; 83036; 84550; 85025 ==

== ENCOUNTER → 2022-11-04 15:58 | Outpatient (BNVA) | payer MEDICARE, SELFPAY | PROVIDERS: PCP Family Medicine; Visit Provider Family Medicine | DX: M10.9 Gout, unspecified (principal); E83.42 Hypomagnesemia; Z51.81 Encounter for therapeutic drug level monitoring | CPT/HCPCS: 80053; 83735; 84550; 85025 ==

== ENCOUNTER → 2023-02-10 15:08 | Outpatient (BNVA) | payer MEDICARE, OTHER, SELFPAY | PROVIDERS: PCP Family Medicine; Visit Provider Family Medicine | DX: Z51.81 Encounter for therapeutic drug level monitoring (principal); E11.9 Type 2 diabetes mellitus without complications; E83.42 Hypomagnesemia; R03.0 Elevated blood-pressure reading, without diagnosis of hypertension; J96.11 Chronic respiratory failure with hypoxia; M10.9 Gout, unspecified; R73.03 Prediabetes; M25.50 Pain in unspecified joint | CPT/HCPCS: 80053; 83036; 83735; 84550; 85025 ==

== ENCOUNTER → 2023-05-08 11:41 | Outpatient (BNVA) | payer MEDICARE, OTHER, SELFPAY | PROVIDERS: PCP Family Medicine; Visit Provider Clinical Nurse Specialist Adult Health | DX: N39.0 Urinary tract infection, site not specified (principal); J96.11 Chronic respiratory failure with hypoxia; J06.9 Acute upper respiratory infection, unspecified; R44.1 Visual hallucinations | CPT/HCPCS: 80053; 81000; 85025; 86140; 87086; 87400; 87426 ==

== ENCOUNTER → 2023-05-09 12:14 | Outpatient (BNVA) | payer MEDICARE, OTHER, SELFPAY | PROVIDERS: PCP Family Medicine; Visit Provider Family Medicine | DX: N39.0 Urinary tract infection, site not specified (principal); L89.309 Pressure ulcer of unspecified buttock, unspecified stage; M25.50 Pain in unspecified joint; R44.1 Visual hallucinations | CPT/HCPCS: 85025 ==

== ENCOUNTER 2023-05-10 22:02 | Inpatient (IN) | payer MEDICARE, OTHER, MEDICAID, SELFPAY ==
[2023-05-10 22:05] VITALS: BP 173/113; PULSE 119; RESP 20; TEMP 37.1; O2SAT 87
--- NOTE | 2023-05-10 22:12 | ECG_ITS ---
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 Measurements Intervals [place] Rate: 116 P: 42 [place]: 140 QRS: 124 QRSD: 93 T: 26 QT: 334 QTc: 465 Interpretive Statements SINUS TACHYCARDIA RIGHT AXIS DEVIATION [QRS AXIS > 100] PATTERN CONSISTENT WITH PULMONARY DISEASE Compared to ECG 12/03/2021 09:51:36 Sinus rhythm no longer present Myocardial infarct finding no longer present Electronically Signed On 05-11-2023 22:02:48 KNITTING DEMONSTRATOR by Danyelle Gann M.D. [id number]
--- NOTE | 2023-05-10 22:21 | XRR_ITS ---
PROCEDURE INFORMATION: Exam: XR Chest Exam date and time: 05/10/2023 11:03 PM Age: 67 years old Clinical indication: Shortness of breath and wheezing; Patient HX: Respiratory distress; Low o2 sat; SOB; Copd TECHNIQUE: Imaging protocol: Radiologic exam of the chest. Views: 1 view. COMPARISON: CR XR chest 1V portable [id number] 12/03/2021 10:36 AM FINDINGS: Lungs: Moderate lung expansion. Bronchial wall thickening. Emphysematous changes. Opacities recommended right lung base. Pleural spaces: No pleural effusion. No pneumothorax. Heart/Mediastinum: Likely stable cardiomediastinal silhouette when accounting for patient rotation. Bones/joints: No acute osseous abnormality. XR/XR chest 1V portable [id number] IMPRESSION: Smoking related lung disease with subtle opacity projecting over the right lung base, indeterminate for artifact given patient rotation versus focus of infection/inflammation.
[2023-05-10 23:00] VITALS: PULSE 115; RESP 26; O2SAT 85
[2023-05-10 23:00] LABS: Basophils # 0.1 10^3/uL (0.0-0.1); Basophils % 0.7 %; Eosinophils # 0.1 10^3/uL (0.0-0.8); Eosinophils % 1.2 %; Hematocrit 65.3 % (36-47); Lymphocytes # 1.4 10^3/uL (0.8-4.8); Lymphocytes % 17.1 %; Mean Corpuscular Hemoglobin 30.4 pg (27-33); Mean Corpuscular Volume 95.1 fl (85-98); Mean Platelet Volume 9.4 fL (7.4-10.4); Monocytes # 0.4 10^3/uL (0.2-0.9); Monocytes % 4.7 %; Neutrophils # 6.06 10^3/uL (1.8-7.7); Neutrophils % 75.7 %; Nucleated Red Blood Cells % 0 %; Platelet Count 184 10^3/cmm (157-399); Red Blood Count 6.87 10^6/uL (3.85-5.65); Red Cell Distribution Width 19.2 % (12.1-15.1); White Blood Count 8.02 10^3/uL (3.29-11.43)
[2023-05-10] MEDS: ipratropium-albuterol 3 mL Neb INHALATION (23:00)
[2023-05-10] MEDS: haloperidol inj 5 mg/mL INJ 1 mL 3 MG IVP (23:10)
[2023-05-10 23:16] VITALS: PULSE 122; O2SAT 90
[2023-05-10 23:18] LABS: Lactic Sepsis W/Reflex 1.4 mmol/L (0.5-2.2)
[2023-05-10 23:22] LABS: Troponin(5th) Baseline 31 ng/L (0-10)
[2023-05-10 23:28] LABS: Alanine Aminotransferase 58 U/L (0-33); Albumin Level 3.8 g/dL (3.5-5.2); Alkaline Phosphatase 118 U/L (35-105); Blood Urea Nitrogen 26 mg/dL (8-23); Calcium 9.3 mg/dL (8.5-10.5); Carbon Dioxide 28 mmol/L (22-29); Chloride 99 mmol/L (98-107); Globulin 3.4 g/dL (1.3-4.6); Glomerular Filtration Rate 62.3 mL/min (90-130); Glucose 131 mg/dL (65-115); Magnesium 2.2 mg/dL (1.7-2.3); NT Pro B Type Natriuretic Pept 340 pg/mL (0-125); Osmolality Calculated 291 mOsm/kg (285-295); Sodium 137 mmol/L (136-145); Total Bilirubin 0.8 mg/dL (0.15-1.2); Total Protein 7.2 g/dL (6.6-8.7)
[2023-05-10 23:29] LABS: Anion Gap 14.8 (5-19); Aspartate Amino Transferase 124 U/L (0-32); Potassium 4.8 mmol/L (3.5-5.1)
[2023-05-10 23:34] LABS: ABG PH Result 7.33 (7.35-7.45); Arterial Blood Gas Hematocrit 64.9 % (37-47); Base Excess ABG 3.4 mmol/L (-2.0-2.0); Blood Gas Allen Test Pos; Blood Gas Sample Site Radial, right; Blood Gas Sample Type Arterial; Carboxyhemoglobin 4.3 %THgb (0.4-20.1); HCO3 ABG 32.5 mmol/L (22-26); HGB O2 Sat 91.6 % (95-100); Methemoglobin 0.1 % (0.4-1.5); Oxygen Device NC; PO2 ABG 86.7 mmHg (80.0-100.0); Total Hemoglobin 21.2 g/dL (12-16)
[2023-05-10 23:35] LABS: ABG PCO2 62.3 mmHg (35-45)
[2023-05-10] MEDS: methylPREDNISolone sod succ 125 MG in water for injection-sterile 2 ML 24 MG IVP (23:35)
[2023-05-10 23:44] VITALS: BP 106/65; PULSE 102; PULSE 103; RESP 18; RESP 19; O2SAT 92; O2SAT 93
[2023-05-11] VITALS (93 sets, daily range): BP systolic 81–151; BP diastolic 49–118; PULSE 68–120; RESP 13–28; TEMP 36.3–37.2; O2SAT 67–99; BMI 40.1
--- NOTE | 2023-05-11 00:17 | ECG_ITS ---
[facility] Test Date: 2023-05-11 Pat Name: Ximena Montero Department: Room: Gender: Female Clinic Charge Nurse: : 1955 Requested By: Emery Chen Order Number: [id number] Nahum MD: Danyelle Gann M.D. Measurements Intervals [place] Rate: 98 P: 53 [place]: 140 QRS: 120 QRSD: 89 T: 53 QT: 369 QTc: 473 Interpretive Statements SINUS RHYTHM LEFT POSTERIOR FASCICULAR BLOCK [QRS AXIS > 109, INFERIOR Q] Compared to ECG 12/03/2021 09:51:36 Left posterior fascicular block now present Right-axis deviation no longer present Myocardial infarct finding no longer present Electronically Signed On 05-11-2023 22:18:29 CERTIFIED PROFESSIONAL ERGONOMIST by Danyelle Gann M.D. [id number]
--- NOTE | 2023-05-11 00:40 | W.ED.SOB ---
HPI - SOB/Dyspnea General: Chief Complaint: Shortness of Breath/Dyspnea Stated Complaint: AMS Time Seen by Provider: 05/10/23 22:12 History of Present Illness: HPI Narrative: 67-year-old female with chronic respiratory failure. She presents in worsening respiratory failure. According to family, she has been hallucinating, saturations have been low at home despite her 4 L of oxygen. No fever. Increased cough. No increased leg swelling. She denies chest pain. Associated symptoms: Deny abdominal pain, chest pain, fever(s), palpitations or vomiting Review of Systems Const: Denies: fever(s) ENMT: Denies: throat pain Card: Denies: chest pain or palpitations Resp: Reports: non-productive cough and wheezing GI: Denies: abdominal pain or vomiting PFSH ED PFSH: Medical History Aneurysm Cellulitis of foot excluding toe Chronic obstructive pulmonary disease Chronic respiratory failure with hypoxia DVT (deep venous thrombosis) Lung nodule Polycythemia Thyroid nodule Ulnar nerve disease Surgical History H/O exploratory laparotomy H/O knee surgery H/O left wrist surgery H/O shoulder surgery History of arthroscopy of both shoulders History of carpal tunnel surgery History of cholecystectomy History of decompression of ulnar nerve History of hysterectomy Hx of tonsillectomy S/P excision of vocal cord nodule Family History Other CAD (coronary artery disease) Cancer Diabetes Social History Smoking and tobacco/nicotine status: current every day tobacco/nicotine user cigarettes Packs smoked per day: 1.5 Years cigarettes smoked: 46 Quit status (tobacco/nicotine): has tried quititng Number of times tried to quit tobacco: 20 Second hand smoke exposure: Yes Alcohol intake: never Substance/Drug Use: never Lives independently: Yes Household members: family Marital status: Current occupational status: disabled Do you think of yourself as: Straight/Heterosexual Current gender identity: Female Physical Exam Const: GENERAL APPEARANCE: disheveled, ill appearing, frail appearing and appears older than stated age NUTRITIONAL APPEARANCE: obese ORIENTATION/CONSCIOUSNESS: Yes awake, Yes oriented to person and Yes oriented to place HENMT: COMMON NORMALS: normocephalic and Normal external nose present HEAD & SCALP: normocephalic FACE & SINUS: face symmetric NOSE: Normal external nose present Eye: COMMON NORMALS: Equal, round and reactive pupils present and EOMs intact bilaterally PUPIL: Yes Equal, round and reactive pupils present Neck/C-Spine: GENERAL: Yes trachea midline Chest: CHEST: Yes Symmetrical chest wall rise and Yes other (significant kyphosis) Resp: EFFORT & INSPECTION: Yes decreased respiratory effort, Yes labored, Yes grunting and Yes audible wheezes AUSCULTATION: rhonchi, wheezes and diminished lung sounds Cardio: COMMON NORMALS: regular rhythm RATE: tachycardic RHYTHM: regular rhythm GI: COMMON NORMALS: Soft to palpation PALPATION: Yes Soft to palpation and No Tenderness to palpation present (GI) Extremity: NARRATIVE EXTREMITY EXAM: Chronic edema with stasis dermatitis, skin cracking, and Cellulitis. Neuro: DARYN COMA SCALE: document GCS findings Daryn coma scale eye opening: To sound [place] coma scale verbal response: Confused [place] coma scale motor response: Obey commands [place] coma scale total score: 13 SENSORIUM/ORIENTATION: Yes oriented to person and Yes oriented to place Skin: NARRATIVE SKIN EXAM: See extremity exam. Intertriginous rash also present. Course Vital Signs: Vital signs: Vital Signs Temperature 97.3 F L 05/11/23 14:47 Pulse Rate 78 05/11/23 16:32 Respiratory Rate 18 05/11/23 16:32 Blood Pressure 82/49 05/11/23 16:30 Pulse Oximetry 88 L 05/11/23 16:32 Oxygen Delivery Me thod High Flow Nasal C annula 05/11/23 15:41 Oxygen Flow Rate 40 05/11/23 16:32 Fraction of Inspir ed Oxygen 60 05/11/23 16:32 MDM - SOB/Dyspnea Medical Decision Making Patient was very resistant to treatment on arrival. She initially refused blood gas, refused BiPAP, refused to sit up straight. She was in a tripod position in respiratory distress, despite being on 15 L nonrebreather. She was given IV Haldol for anxiolysis, which seemed to help. She allowed us at that point to get a blood gas, and put her on BiPAP. She is improved significantly on BiPAP. Initial pH was 7.33 with a PCO2 of 62. Chest x-ray is not impressive for overt infiltrate. Her hemoglobin is 21, which is a chronic finding. She is a DNR patient. She will go to the ICU given her tedious respiratory status. Hospitalist will see the patient. Lab Data 05/10/23 22:43 05/10/23 22:43 Labs/Radiology: Radiology Impressions Chest X-Ray 05/10/23 22:21 IMPRESSION: Smoking related lung disease with subtle opacity projecting over the right lung base, indeterminate for artifact given patient rotation versus focus of infection/inflammation. Venous Duplex 05/11/23 09:30 IMPRESSION: No DVT identified in either right or left lower extremity. Please note that this technique does not exclude thrombus isolated to the calf veins. Laboratory Results WBC 8.02 10^3/uL (3.29-11.43) 05/10/23 22:43 RBC 6.87 10^6/uL (3.85-5.65) H 05/10/23 22:43 Hgb 20.90 g/dL (11.27-16.99) H 05/10/23 22:43 Hct 65.3 % (36-47) H 05/10/23 22:43 MCV 95.1 fl (85-98) 05/10/23 22:43 MCH 30.4 pg (27-33) 05/10/23 22:43 MCHC 32.0 g/dL (30-55) 05/10/23 22:43 RDW 19.2 % (12.1-15.1) H 05/10/23 22:43 Plt Count 184 10^3/cmm (157-399) 05/10/23 22:43 MPV 9.4 fL (7.4-10.4) 05/10/23 22:43 Neut % (Auto) 75.7 % 05/10/23 22:43 Lymph % (Auto) 17.1 % 05/10/23 22:43 [place] % (Auto) 4.7 % 05/10/23 22:43 Eos % (Auto) 1.2 % 05/10/23 22:43 Baso % (Auto) 0.7 % 05/10/23 22:43 Neut # (Auto) 6.06 10^3/uL (1.8-7.7) 05/10/23 22:43 Lymph # (Auto) 1.4 10^3/uL (0.8-4.8) 05/10/23 22:43 [place] # (Auto) 0.4 10^3/uL (0.2-0.9) 05/10/23 22:43 Eos # (Auto) 0.1 10^3/uL (0.0-0.8) 05/10/23 22:43 Baso # (Auto) 0.1 10^3/uL (0.0-0.1) 05/10/23 22:43 Nucleated RBC % (auto) 0 % 05/10/23 22:43 Nucleated RBCs # 0.0 /100WBC 05/10/23 22:43 Specimen Type Arterial 05/10/23 23:23 Sample Site Radial, right 05/10/23 23:23 ABG pH 7.33 (7.35-7.45) L 05/10/23 23:23 ABG pCO2 62.3 mmHg (35-45) H* 05/10/23 23: ABG pO2 86.7 mmHg (80.0-100.0) 05/10/23 23: ABG HCO3 32.5 mmol/L (22-26) H 05/10/23 23:23 ABG Base Excess 3.4 mmol/L (-2.0-2.0) H 05/10/23 23:23 [place] Test Pos 05/10/23 23:23 Hematocrit 64.9 % (37-47) H 05/10/23 23:23 Hgb O2 Saturation 91.6 % (95-100) L 05/10/23 23: Carboxyhemoglobin 4.3 %THgb (0.4-20.1) 05/10/23 23:23 Methemoglobin 0.1 % (0.4-1.5) L 05/10/23 23:23 Total Hemoglobin 21.2 g/dL (12-16) H 05/10/23 23:23 O2 Delivery Device Nc 05/10/23 23: O2 Liters/Min 6.0 % 05/10/23 23:23 Shot Peen Operator ID [email or web address] 05/10/23 23:23 Sodium 137 mmol/L (136-145) 05/10/23 22:43 Potassium 4.8 mmol/L (3.5-5.1) 05/10/23 22:43 Chloride 99 mmol/L (98-107) 05/10/23 22:43 Carbon Dioxide 28 mmol/L (22-29) 05/10/23 22:43 Anion Gap 14.8 (5-19) 05/10/23 22:43 BUN 26 mg/dL (8-23) H 05/10/23 22:43 Creatinine 0.9 mg/dL (0.5-0.9) 05/10/23 22:43 GFR Calculation 62.3 mL/min (90-130) L 05/10/23 22:43 Glucose 131 mg/dL (65-115) H 05/10/23 22:43 Calculated Osmolality 291 mOsm/kg (285-295) 05/10/23 22:43 Lactic Acid 1.4 mmol/L (0.5-2.2) 05/10/23 22:43 Calcium 9.3 mg/dL (8.5-10.5) 05/10/23 22:43 Magnesium 2.2 mg/dL (1.7-2.3) 05/10/23 22:43 Iron 60 ug/dL (37-145) 05/11/23 00:00 TIBC 323 mcg/dl 05/11/23 00:00 % Saturation 18.5 % (20-50) L 05/11/23 00:00 Unsat Iron Binding 263 ug/dL (112-347) 05/11/23 00:00 Total Bilirubin 0.8 mg/dL (0.15-1.2) 05/10/23 22:43 AST 124 U/L (0-32) H 05/10/23 22:43 ALT 58 U/L (0-33) H 05/10/23 22:43 Alkaline Phosphatase 118 U/L (35-105) H 05/10/23 22:43 Troponin T Baseline 31 ng/L (0-10) H 05/10/23 22:43 NT-Pro-B Natriuret Pep 340 pg/mL (0-125) H 05/10/23 22:43 Total Protein 7.2 g/dL (6.6-8.7) 05/10/23 22:43 Albumin 3.8 g/dL (3.5-5.2) 05/10/23 22:43 Globulin 3.4 g/dL (1.3-4.6) 05/10/23 22:43 Vitamin B12 914 pg/mL (232-1245) 05/11/23 00:00 Procalcitonin 0.13 ng/mL (0-0.5) 05/11/23 00:00 TSH 0.72 uIU/mL (0.27-4.20) 05/11/23 00:00 Nasal Influ A H1 2009 PCR Not detected (NOT DETECT) 05/10/23 23:45 Adenovirus (PCR) Not detected (NOT DETECT) 05/10/23 23:45 C. pneumoniae DNA (PCR) Not detected (NOT DETECT) 05/10/23 23:45 Coronavirus 229E (PCR) Not detected (NOT DETECT) 05/10/23 23:45 Human Metapneumovir PCR Not detected (NOT DETECT) 05/10/23 23:45 Influenza A (H1) PCR Not detected (NOT DETECT) 05/10/23 23:45 Influenza A (H3) PCR Not detected (NOT DETECT) 05/10/23 23:45 Influenza Type A (PCR) Not detected (NOT DETECT) 05/10/23 23:45 Influenza Type B (PCR) Not detected (NOT DETECT) 05/10/23 23:45 M. pneumoniae (PCR) Not detected (NOT DETECT) 05/10/23 23:45 Parainfluenza 1 (PCR) Not detected (NOT DETECT) 05/10/23 23:45 Parainfluenza 2 (PCR) Not detected (NOT DETECT) 05/10/23 23:45 Parainfluenza 3 (PCR) Not detected (NOT DETECT) 05/10/23 23:45 Parainfluenza 4 (PCR) Not detected (NOT DETECT) 05/10/23 23:45 RSV Type A (PCR) Not detected (NOT DETECT) 05/10/23 23:45 RSV Type B (PCR) Not detected (NOT DETECT) 05/10/23 23:45 Entero/Rhino (PCR) Not detected (NOT DETECT) 05/10/23 23:45 SARS-CoV-2 (PCR) Not detected (NOT DETECT) 05/10/23 23:45 All radiology interpretation(s) finalized by discharge Critical Care Time Critical Care Time: Critical Care Time: Yes Total Critical Care Time: 35 Attestation: This case had a high probability of a clinically significant, sudden, or life threatening deterioration of this patient's condition which required my full and direct attention, intervention and personal management. Time is independent of any procedures performed. Discharge Plan Discharge Patient Disposition: Admitted As Inpatient Admit Provider: Hair Guy Clinical Impression: Hypercapnic respiratory failure, Chronic respiratory failure with hypoxia, Chronic obstructive pulmonary disease, Bilateral lower extremity edema, COPD exacerbation Condition: Serious Coding Level of Care Code ED Button Riveter for Kayy Ashford
--- NOTE | 2023-05-11 00:42 | PM.HP ---
Providers/Chief Complaint Primary Care Provider: Gustavo Thompson MD Chief Complaint: AMS History of Present Illness History taken over the phone through brother Mr. Finley. Ximena Montero is a 67 year old female chronic smoker, history of COPD on chronic oxygen supplementation of 4.5 to 5 L, noncompliant, BiPAP nightly noncompliant was brought into the ER because of worsening mentation and hallucination which has been getting worse for last 6 days but more so for last 3 days. As per the brother further work-up of hallucination as an outpatient she was started on oral antibiotics for a possible sore on her legs by her primary care provider. Not sure of any changes in her medications recently though as above that she is not compliant with medications as well. In the ER she was found to be hypoxic with ABG showing hypercapnia hence she was placed on BiPAP. Patient was combative hence she was given 0.5 of IV Haldol. Review of Systems General: Reports: ROS unobtainable due to mental status Medications/Allergies Home Medications Medication Instructions Recorded Confirmed Last Taken Type albuterol sulfate 90 mcg/actuation 2 puff inhalation Q6H PRN 02/02/20 05/08/23 Unknown History aerosol inhaler (ProAir HFA) cholecalciferol (vitamin D3) 125 125 mcg PO DAILY 02/02/20 05/08/23 Unknown History mcg (5,000 unit) capsule clotrimazole 10 mg carmel 10 mg mucous membrane TID 10 days 03/22/21 05/08/23 Unknown Rx #30 tabs albuterol sulfate 2.5 mg/3 mL 2.5 mg (3 mL) inhalation QID PRN 10/03/21 05/08/23 Unknown Rx (0.083 %) solution for nebulization shortness of breath or wheezing #90 mL Nebulizer tubing #1 ea 02/12/22 05/08/23 Unknown Rx doxycycline hyclate 100 mg tablet 100 mg PO BID cellulitis 20 days 02/15/22 05/08/23 Unknown Rx #40 tabs famotidine 40 mg tablet 40 mg PO DAILY #90 tabs 02/15/22 05/08/23 Unknown Rx magnesium oxide 400 mg (241.3 mg See Rx Instructions .Route 11/29/22 05/08/23 Unknown Rx magnesium) tablet .COMPLEX #90 tabs diclofenac potassium 50 mg tablet 50 mg PO BID #60 tabs 12/17/22 05/08/23 Unknown Rx sucralfate 1 gram tablet (Carafate) 1 g PO Q6H #120 tabs 12/17/22 05/08/23 Unknown Rx azithromycin 250 mg tablet See Rx Instructions PO .COMPLEX 01/27/23 05/08/23 Unknown Rx #36 tabs allopurinol 300 mg tablet 300 mg PO DAILY #90 tabs 02/10/23 05/08/23 Unknown Rx fluconazole 150 mg tablet See Rx Instructions .Route 02/28/23 05/08/23 Unknown Rx .COMPLEX #7 tabs cetirizine 10 mg tablet (Allergy 10 mg PO DAILY PRN allergy 03/20/23 05/08/23 Unknown Rx Relief (cetirizine)) symptoms #90 tabs furosemide 20 mg tablet (Lasix) 60 mg PO BID edema #540 tabs 03/25/23 05/08/23 Unknown Rx potassium chloride 10 mEq See Rx Instructions .Route 03/25/23 05/08/23 Unknown Rx tablet,extended release .COMPLEX #360 tabs ipratropium 0.5 mg-albuterol 3 mg See Rx Instructions .Route 03/26/23 05/08/23 Unknown Rx (2.5 mg base)/3 mL nebulization .COMPLEX #1,620 mL soln clotrimazole-betamethasone 1 1 applic topical BID #15 grams 04/16/23 05/08/23 Unknown Rx %-0.05 % topical cream cyclobenzaprine 10 mg tablet See Rx Instructions .Route 04/25/23 05/08/23 Unknown Rx .COMPLEX #90 tabs Wheelchair cushion for bed ulcer #1 ea 05/01/23 05/01/23 Unknown Rx Allergies Allergy/AdvReac Type Severity Reaction Status Date / Time procaine [From Novocain] Allergy Intermediate Unknown Verified 05/08/23 11:39 tramadol [From Ultram] Allergy Intermediate Unknown Verified 05/08/23 11:39 PFSH Acute PFSH: Medical History (Updated 05/11/23 @ 04:06 by Hair Guy MD) Aneurysm Cellulitis of foot excluding toe Chronic obstructive pulmonary disease Chronic respiratory failure with hypoxia DVT (deep venous thrombosis) Lung nodule Polycythemia Thyroid nodule Ulnar nerve disease Surgical History H/O exploratory laparotomy H/O knee surgery H/O left wrist surgery H/O shoulder surgery History of arthroscopy of both shoulders History of carpal tunnel surgery History of cholecystectomy History of decompression of ulnar nerve History of hysterectomy Hx of tonsillectomy S/P excision of vocal cord nodule Family History Other CAD (coronary artery disease) Cancer Diabetes Social History Smoking and tobacco/nicotine status: current every day tobacco/nicotine user cigarettes Packs smoked per day: 1.5 Years cigarettes smoked: 46 Quit status (tobacco/nicotine): has tried quititng Number of times tried to quit tobacco: 20 Second hand smoke exposure: Yes Alcohol intake: never Substance/Drug Use: never Lives independently: Yes Household members: family Marital status: Current occupational status: disabled Do you think of yourself as: Straight/Heterosexual Current gender identity: Female Vitals/I&O/Wt Last Vital Signs Temp 98.8 F 05/10/23 22:05 Pulse 99 05/11/23 00:07 Resp 18 05/10/23 23:44 BP 106/65 05/10/23 23:44 Pulse Ox 93 05/11/23 00:07 O2 Del Method BiPAP 05/10/23 23:44 O2 Flow Rate 6 05/10/23 23:16 FiO2 60 05/11/23 00:07 05/10/23 05/10/23 05/11/23 14:59 22:59 06:59 Intake Total 2 / 2 Balance 2 / 2 Weight last 48 hrs Weight 98.883 kg Physical Exam Narrative: General: No acute distress, somnolent, E2 M2 V1, on BiPAP ventilation HEENT: PERRLA, pupils bilaterally equal and reactive Chest: Bronchial breath sounds all over lung mruguia with coarse crackles and diffuse rhonchi CVS: S1-S2 regular, no murmurs, no tachycardia, no gallops, no rubs Abdomen: Soft, nontender, no organomegaly, bowel sounds present, morbidly obese Neuro: No focal deficits, no facial deformity, AO x3, power 5/5 in all limbs Data 05/10/23 22:43 05/10/23 22:43 Micro: Microbiology 05/10/23 22:41 Blood Culture - Preliminary Blood SPECIMEN COLLECTED 05/10/23 22:43 Blood Culture - Preliminary Blood SPECIMEN COLLECTED A&P Assessment and plan (1) Encephalopathy acute: Unknown etiology. Cannot rule out in setting of hypercapnic respiratory failure. Check urine drug screen, CT head, TSH, vitamin B12. NPO. Nicotine patch (2) Hypercapnic respiratory failure: History of severe COPD on 4.5 to 5 L of oxygen supplementation. Continue with BiPAP ventilation for now. Repeat ABG in AM. Oxygen supplementation keeping saturation over 88%. DuoNebs every 6 hours, Pulmicort twice daily. Solu-Medrol 60 mg every 4 hourly. Check echocardiogram. Patient clinically dehydrated. Hold off on home dose of Lasix. Start on IV fluids with normal saline at 75 cc/h. Check CTA to rule out pulmonary embolism versus consolidation. Pneumonia less likely for now. But given critical illness for now we will start on community-acquired pneumonia treatment with ceftriaxone 1 g IV daily. Check sputum culture, urine Legionella, bacterial antigen, respiratory viral panel, MRSA swab. (3) Chronic respiratory failure with hypoxia: (4) Non-compliant behavior: (5) Polycythemia: Most likely in setting of severe COPD. Chronic. (6) Nicotine addiction: Qualifiers: Nicotine product type: cigarettes (7) Chronic obstructive pulmonary disease: Plan N.p.o. Protonix for PUD prophylaxis Lovenox for DVT prophylaxis. Admit to ICU. CODE STATUS: Discussed in detail with patient's secondary DPOA Mr. Finley over the phone. Patient's daughter Ms. Zhao is the primary DPOA. She is coming in from [place]. As per the brother patient is DNR/DNI. Have requested the paperwork to be provided. Attestations Medical Necessity Statement*: Admission for more than 2 midnights for further evaluation and management of acute encephalopathy, hypercapnic respiratory failure in setting of severe COPD Diagnoses Encephalopathy acute G93.40 Hypercapnic respiratory failure J96.92 Chronic respiratory failure with hypoxia J96.11 Non-compliant behavior R46.89 Polycythemia D75.1 Nicotine addiction F17.200 Nicotine product type: cigarettes Chronic obstructive pulmonary disease J44.9
--- NOTE | 2023-05-11 00:52 | USCV_ITS ---
Ximena Montero Age: 67 Gender: F : 1955 Exam Date: 05/11/2023 10:49 Ordering Phys: Hair Guy MD Technologist: Shahzad Man [place] [facility] [place]: SOB BP: 111 / 67 HR: Rhythm: Sinus Technical Quality: Adequate MEASUREMENTS (Male / Female) Normal Values 2D ECHO LVOT Diameter 2.0 cm LA Diameter 3.2 cm Aorta at Sinotubular Diameter 1.8 cm M-MODE Aortic Annulus Diameter 2.0 cm LA Ao Ratio MM 1.5 FINDINGS Left Ventricle Only parasternal views were obtained. Study had to be stopped as per patient's request. Because of poor ultrasonic window the quality was suboptimal. The LV appears to be of normal size. Segmental wall motion analysis difficult Right Ventricle Right Atrium Left Atrium Possibly of normal size Mitral Valve Aortic Valve Thickened aortic valve. Tricuspid Valve Pulmonic Valve Pericardium No pericardial effusion. Aorta Normal aortic annulus size. IVC CONCLUSIONS The LV appears to be of normal size. Segmental wall motion analysis difficult Possibly normal left atrial size Thickened aortic valve. No pericardial effusion. Normal aortic annulus size. Only parasternal views were obtained. Study had to be stopped as per patient's request. Because of poor ultrasonic window the quality was suboptimal. Dr Danyelle Gann MD [facility] (Electronically Signed) Final Date: 11 May 2023 20:57 S
[2023-05-11 01:28] LABS: Troponin 5 2HR 33.63 ng/L (0-10)
[2023-05-11 01:29] LABS: Troponin 5 2HR Delta 2.63 ABS# (0-10)
[2023-05-11 01:33] LABS: Adenovirus Not Detected (NOT DETECT); Chlamydia Pneumoniae Not Detected (NOT DETECT); Coronavirus 229E,HKU1,NL63,OC4 Not Detected (NOT DETECT); Human Metapneumovirus Not Detected (NOT DETECT); Human Rhinovirus/Enterovirus Not Detected (NOT DETECT); Influenza A Not Detected (NOT DETECT); Influenza A H1 Not Detected (NOT DETECT); Influenza A H1-2009 Not Detected (NOT DETECT); Influenza A H3 Not Detected (NOT DETECT); Influenza B Not Detected (NOT DETECT); Mycoplasma Pneumoniae Not Detected (NOT DETECT); Parainfluenza Virus Type 1 Not Detected (NOT DETECT); Parainfluenza Virus Type 2 Not Detected (NOT DETECT); Parainfluenza Virus Type 3 Not Detected (NOT DETECT); Parainfluenza Virus Type 4 Not Detected (NOT DETECT); Respiratory Syncytial Virus A Not Detected (NOT DETECT); Respiratory Syncytial Virus B Not Detected (NOT DETECT); SARS-COV-2 Not Detected (NOT DETECT)
[2023-05-11] MEDS: ipratropium-albuterol 3 mL Neb INHALATION ×6 (01:55→23:11)
[2023-05-11] MEDS: enoxaparin 40 mg/0.4 mL Syringe SUBCUT (02:08)
[2023-05-11] MEDS: cefTRIAXone 1,000 MG in sodium chloride 0.9% (plus) 50 ML 100 MG IV (02:08)
[2023-05-11] MEDS: methylPREDNISolone sod succ 60 MG in water for injection-sterile 0.96 ML 11.52 MG IVP ×2 (02:09→06:38)
[2023-05-11] MEDS: dexmedeTOMIDine 0.9 % NaCL 400 MCG/100 ML PREMIX IV (02:40)
--- NOTE | 2023-05-11 03:00 | PC.NURSE ---
Sucralfate PO sucralfate ordered; patient confused and not following commands. Sucralfate not administered; Dr. Guy notified.
[2023-05-11] MEDS: pantoprazole 40 mg SDV IVP ×2 (03:39→16:47)
[2023-05-11] MEDS: FUROsemide 10 mg/mL SDV 4mL 40 MG IVP ×2 (03:39→22:46)
[2023-05-11 03:42] LABS: Bilirubin Urine 1+ (Negative); Blood Urine Neg (Negative); Glucose Urine UA Norm (Normal); Ketones Urine 1+ (Negative); Leukocyte Esterase Urine Negative (Negative); Nitrate Urine Negative (Negative); Protein Urine 1+ (Negative); Specific Gravity, Urine 1.025 (1.005-1.030); Urine Appearance Clear (CLEAR); Urine Color Amber (Yellow); Urobilinogen Urine 1 mg/dL (Negative); pH Urine 5 (5-7)
[2023-05-11 03:43] LABS: Add Urine Microscopic? YES
[2023-05-11 03:46] LABS: Amphetamines Screen Urine Negative (Negative); Barbiturates Screen Urine Negative (Negative); Benzodiazepines Screen Urine Negative (Negative); Cocaine Screen Urine Negative (Negative); Opiate Screen Urine Negative (Negative); PCP Screen Urine Negative (Negative); THC Screen Urine Negative (Negative)
[2023-05-11 03:50] LABS: Add Urine Culture? No; Amorphous Sediment Urine 2+ /hpf; Bacteria Urine 1+ /hpf; Mucus Urine 4+ /hpf; RBC Urine 0-4 /hpf (0-2); Squamous Epithelial Cell Urine 0-4 /hpf (0-5); WBC Urine 0-4 /hpf (0-5)
[2023-05-11 03:50] LABS: Alcohol Level < 10 mg/dL (0-10)
[2023-05-11] MEDS: morphine 4 mg/mL SDV 1 mL 2 MG IVP ×2 (04:12→21:47)
[2023-05-11 04:16] LABS: ABG PH Result 7.29 (7.35-7.45); Alveolar-Arterial Oxygen Gradi 16.1 mmHg (5-10); Arterial Blood Gas Hematocrit 63.5 % (37-47); Blood Gas Operator Identificat JB; Blood Gas Sample Site Brachial, right; Blood Gas Sample Type Arterial; Carboxyhemoglobin 3.4 %THgb (0.4-20.1); HCO3 ABG 31.7 mmol/L (22-26); HGB O2 Sat 91.8 % (95-100); Ionized Calcium Level - ABG 1.2 mmol/L (1.1-1.4); Oxygen Device BIPAP; Oxygen Saturation ABG 95.1; PO2 ABG 82.4 mmHg (80.0-100.0); PO2 FiO2 Ratio Arterial Blood 0; Potassium Level - ABG 4.2 mmol/L (3.5-5.0); Total Hemoglobin 20.7 g/dL (12-16)
--- NOTE | 2023-05-11 04:22 | ECG_ITS ---
[facility] Test Date: 2023-05-11 Pat Name: Ximena Montero Department: Room: ICU12 Gender: Female Director Of Environmental Services: : 1955 Requested By: Emery Chen Order Number: [id number] Nahum MD: Danyelle Gann M.D. Measurements Intervals Natalia Rate: 84 P: 56 AL: 161 QRS: 113 QRSD: 93 T: 49 QT: 391 QTc: 464 Interpretive Statements SINUS RHYTHM LEFT POSTERIOR FASCICULAR BLOCK [QRS AXIS > 109, INFERIOR Q] POSSIBLE ANTERIOR MYOCARDIAL INFARCTION , PROBABLY OLD [30 ms Q WAVE IN V3/V4, OR R < 0.2 mV IN V4] Compared to ECG 05/11/2023 00:17:08 Myocardial infarct finding now present Electronically Signed On 05-11-2023 22:19:13 [employer] by Danyelle Gann M.D. [email or web address] Ad[facility]ageummc hol[facility] countyEnergy Informaticsmer[facility].Sien/store/OM/[id number]
[2023-05-11 04:24] LABS: Procalcitonin 0.13 ng/mL (0-0.5); Thyroid Stimulating Hormone 0.72 uIU/mL (0.27-4.20); Vitamin B12 914 pg/mL (232-1245)
--- NOTE | 2023-05-11 04:30 | PC.NURSE ---
Physician Communication Dr. Guy at bedside and notified of redness under breasts and abdomen, as well as ulcers on bilateral posterior thighs. Ulcers visualized by Dr. Guy. Order placed for hydrafera blue with optifoams to be placed daily.
[2023-05-11] MEDS: sodium chloride 0.9% 1,000 ML 75 ML IV (04:40)
[2023-05-11 04:42] LABS: ABG PCO2 66.1 mmHg (35-45)
[2023-05-11 04:57] LABS: Iron 60 ug/dL (37-145); Percent Saturation 18.5 % (20-50); Total Iron Binding Capacity 323 mcg/dl; Unsaturated Iron Binding 263 ug/dL (112-347)
[2023-05-11 05:21] LABS: Troponin 5 6HR 26.16 ng/L (0-10); Troponin 5 6HR Delta -4.84 ng/L (0-12)
[2023-05-11] MEDS: budesonide 0.5 mg/2 mL Neb INHALATION ×2 (08:00→20:17)
--- NOTE | 2023-05-11 09:30 | USR_ITS ---
PROCEDURE INFORMATION: Exam: US Duplex Lower Extremity Veins, Bilateral Exam date and time: 05/11/2023 11:07 AM Age: 67 years old Clinical indication: Swelling (edema) of limb; Lower extremity, bilateral; Additional info: Dvt TECHNIQUE: Imaging protocol: Real-time duplex ultrasound of the bilateral extremities with 2-D landeros scale, color Doppler flow and spectral waveform analysis including responses to compression and other maneuvers (when performed) with image documentation. Complete exam focused on the lower extremity veins. Total image count = 3891 images examination consists of 43 cine clips and 10 static images, institutional protocol. Discussed by telephone with performing processing technologist. COMPARISON: No relevant prior studies available. FINDINGS: Right deep veins: There is no internal thrombus identified in the common femoral, the femoral or popliteal veins or proximal greater saphenous vein. Left deep veins: There is no internal thrombus identified in the common femoral, the femoral or popliteal veins or proximal greater saphenous vein. Superficial veins: Bilateral saphenofemoral junctions are patent without thrombus. Soft tissues: No abnormality identified. US/CV venous duplex [facility] [id number] IMPRESSION: No DVT identified in either right or left lower extremity. Please note that this technique does not exclude thrombus isolated to the calf veins.
[2023-05-11] MEDS: nystatin powder 15 gm Btl 1 APPLIC TOPICAL (10:00)
[2023-05-11] MEDS: allopurinol 300 mg Tablet PO (10:00)
[2023-05-11] MEDS: nicotine 21 mg Patch 1 PATCH TRANSDERMA (10:00)
[2023-05-11] MEDS: sucralfate 1 gm Tablet PO (10:00)
[2023-05-11] MEDS: azithromycin 500 MG in sodium chloride 0.9% 250 ML 250 MG IV (10:15)
--- NOTE | 2023-05-11 11:13 | PC.NURSE ---
Pt demanding BiPap be removed. Began taking mask off herself. States if it's my time to go, then it's my time to go. Insisted on O2 via NC. BiPap removed. 5L O2 NC applied. RT notified. Repositioned for ECHO. Pt refused ECHO in middle of scan. States she recently had one at another facility. Informed pt we do not have access to those results. Pt stated her daughter will provide them.
--- NOTE | 2023-05-11 13:31 | PC.RESP ---
pt. refuses bipap
--- NOTE | 2023-05-11 14:32 | P.PN_ITS ---
Subjective Subjective: Patient was examined multiple times throughout the morning, into the afternoon, with a family meeting in the afternoon, ? Patient was seen early this morning, currently she is on BiPAP, she is alert to person, to place, not to time she follows commands, she feels better on the BiPAP ? Patient was seen with family numbers at bedside early in the afternoon, she tells me that she does not want the BiPAP mask on right now, she feels claustrophobic, she is currently on a Precedex drip, she tells me that she continues to feel short of breath, continues to have a cough, ? She tells me that she is worried about getting antibiotics and steroids, as it makes her feel weak, she tells me that it is really hard to use the BiPAP mask, as she feels claustrophobic, with it ? I had extensive discussion with her about her goals of care, patient was seen by pulmonary in 2019, she was diagnosed with gold D's COPD, and she continues to smoke, she lives at home with her mother, ? Have ordered a CT of the head and CT angiogram of the chest she has declined it, for now ? I had an extensive discussion with her about her goals of care, she does not want to be intubated she does not want to be resuscitated ? I discussed with her that she has end-stage COPD, she continues to smoke, I gave her the options about continue medical intervention, steroids, antibiotics, and BiPAP therapy ? In my opinion BiPAP therapy would decrease her morbidity or mortality, will decrease her risk of exacerbations, but that if she uses it, ? I would recommend for her to stay in the hospital get BiPAP therapy, get steroids, get antibiotics, and close clinical monitoring, ? However at times patient is adamant that she wants to leave the hospital, she tries to get up out of bed which is too weak, I discussed with her the morbidity and mortality is about leaving the hospital AGAINST MEDICAL ADVICE, she is of sound mind, so she can make decisions for herself if she wants to leave the hospital it is up to her however I would recommend against it, however she can make decisions for herself, so if she wants to leave it is up to her ? What I would recommend is is that for her to stay here in the hospital for me to medically treated with steroids antibiotics BiPAP therapy we will try to get her anxiety under control, she needs to quit smoking ? However patient becomes very agitated, she tells me that she wants to leave whenever she chooses, and that she does not like staying in bed, I offered her getting her recliner, she tells me that she does not know if she can use a BiPAP therapy, ? I was clear with her and her family that the BiPAP therapy will decrease her risk of morbidity and mortality from COPD, if she does not use the BiPAP she has a high risk of , high risk of morbidity mortality, if she does not use it, ? I had extensive meeting with her family, they understand that she has severe end-stage COPD she continues to smoke, they want to try or take her up to [place] to be with family, we discussed her goals of care, patient expressed that she does not want to be resuscitated, she does not want to be put on a ventilator, we discussed about her hospitalization, as above, they are agreeabl e, we also discussed about how to decrease her risk of exacerbations to have her quit smoking, and to see if she can qualify for BiPAP or trilogy machine at home, ? In my opinion, using a BiPAP or trilogy machine will decrease her risk of COPD exacerbations, decrease her morbidity and mortality, but she has to be compliant, we will try to get her anxiety ? During our discussion with patient, her O2 sats were dropping to the low 80s, on 5 L, she would become short of breath, with tachypnea, tachycardia, no suprasternal retractions, mild intercostal retractions, mild nasal flaring, she does become acute hypoxic respiratory failure upon taking off the BiPAP, and speaking, she gets short of breath with a few words, discussed continue to monitor in the ICU, continue BiPAP therapy, she is agreeable, she tells me she will try the BiPAP therapy but cannot make any promises, will continue Precedex, Ativan as needed for anxiety, again I was clear with her about her risk of morbidity or mortality she understands this, she does not want to be intubated she does not want resuscitation, we discussed briefly about hospice care, however she tells me that she is not ready to make any decisions she becomes very agitated tells me that she wants to go home whenever she wants to but then tells me that she is willing to stay, I was clear with her and her family that if she stays in the hospital she has to follow our recommendations Vitals/I&O/Wt Last Vital Signs Temp 97.3 F L 05/11/23 07:30 Pulse 76 05/11/23 14:00 Resp 18 05/11/23 14:00 BP 96/63 05/11/23 13:30 Pulse Ox 87 L 05/11/23 14:00 O2 Del Method Nasal Cannula 05/11/23 13:25 O2 Flow Rate 5 05/11/23 13:25 FiO2 40 05/11/23 13:55 05/10/23 05/11/23 05/11/23 22:59 06:59 14:59 Intake Total 60.013 / 60.013 475 / 475 Output Total 240 / 240 Balance -179.987 / -179.987 475 / 475 Weight last 48 hrs Weight 99.5 kg Weight 99.5 kg Weight 98.883 kg Physical Exam Const: COMMON NORMALS: no acute distress and patient oriented x3 Resp: COMMON NORMALS: normal respiratory effort, No retractions and No use of accessory muscles Cardio: COMMON NORMALS: regular rate, regular rhythm, S1 normal heart sound present and S2 normal heart sound present RATE: regular rate RHYTHM: regular rhythm HEART SOUNDS: S1 normal heart sound present and S2 normal heart sound present GI: COMMON NORMALS: Normal to inspection, nondistended, normoactive bowel sounds present and non-tender Extremity: COMMON NORMALS: no pedal edema Neuro: COMMON NORMALS: patient oriented x3 Psych: COMMON NORMALS: mental status grossly normal Urinary Catheter Management: Ricardo: Cath Placed During This Visit: yes Reason for Continuing Indwelling Catheter: Accurate Measurement of Urinary Output in Critically Ill Patients Urinary Catheter Date of Insertion: 05/11/23 Urinary Catheter Time of Insertion: 03:15 Data 05/10/23 22:43 05/10/23 22:43 Micro: Microbiology 05/10/23 22:41 Blood Culture - Preliminary Blood SPECIMEN COLLECTED 05/10/23 22:43 Blood Culture - Preliminary Blood SPECIMEN COLLECTED A&P Assessment and plan (1) Encephalopathy acute: Likely secondary to hypercapnia Once patient is more stable will do CT of the head We will consult speech therapy, started on clear liquid diet if she can tolerate ? Aspiration precautions Nicotine patch (2) Hypercapnic respiratory failure: History of severe COPD on 4.5 to 5 L of oxygen supplementation. Continue with BiPAP ventilation for now. Repeat ABG in AM. Oxygen supplementation keeping saturation over 88%. DuoNebs every 6 hours, Pulmicort twice daily. Solu-Medrol 60 mg every 4 hourly. Continue Rocephin 1 g every 24 hours azithromycin 500 mg IV push every 24 hours Check echocardiogram. Check CTA to rule out pulmonary embolism versus consolidation. Check sputum culture, urine Legionella, bacterial antigen, respiratory viral panel, MRSA swab. (3) Chronic respiratory failure with hypoxia: (4) Non-compliant behavior: (5) Polycythemia: Most likely in setting of severe COPD. Chronic. (6) Nicotine addiction: Qualifiers: Nicotine product type: cigarettes (7) Chronic obstructive pulmonary disease: (8) COPD exacerbation: (9) NSTEMI (non-ST elevated myocardial infarction): (10) Right lower lobe pneumonia: Plan Acute hypercarbic hypoxic respiratory failure ? Secondary to COPD exacerbation, ? Secondary to right lower lobe pneumonia ? Patient has baseline Gold D COPD, continues to smoke, chronically on 5 L ? Plan, ? Continue Solu-Medrol 60 mg IV push every 6 hours as needed, ? Continue Precedex for anxiety, ? Continue BiPAP therapy, patient would clinically benefit from home trilogy machine and/or BiPAP therapy, would decrease her morbidity mortality, decrease risk of exacerbations ? Continue Rocephin 1 g IV every 24 hours ? Continue azithromycin 500 mg IV push every 24 hours, ? Follow sputum culture, blood cultures, ? Continue DuoNeb ? Continue budesonide, ? Monitor respiratory status closely, ? Patient is DNR/DNI NSTEMI ? Type I versus type II NSTEMI, likely supply demand ischemia from respiratory failure however cannot rule out underlying cardiac etiology given risk factors, ? Aspirin, statin, ? Serial EKGs, serial troponins, telemetry monitoring, ? Follow-up cardiac echo Right lower lobe pneumonia, right lower lobe infiltrate seen on chest x-ray antibiotics as above, Polycythemia, likely secondary polycythemia from smoking, chronic hypoxia, chronic hypercarbia ? Will need to be monitored as outpatient Transaminitis Advance to clear liquids, speech therapy eval, aspiration precautions Protonix for PUD prophylaxis Lovenox for DVT prophylaxis. Admit to ICU. CODE STATUS: Discussed with patient, DNR/DNI, discussed with DPOA, patient's daughter, Attestations 2 Medical Necessity Statement*: Patient requires hospitalization, inpatient, greater than 2 midnights, for acute hypoxic hypercarbic respiratory failure secondary to COPD, right lower lobe pneumonia, NSTEMI, polycythemia Coding Level of Care Code 11984 High Time for a total of 60 minutes, includes reviewing past or interval history, examining/interviewing patient, placing orders, counseling patient/family/other support, updating patient/family/other support, discussing plan of care with staff, communicating with other healthcare providers, documenting encounter and coordinating care Diagnoses Encephalopathy acute G93.40 Hypercapnic respiratory failure J96.92 Chronic respiratory failure with hypoxia J96.11 Non-compliant behavior R46.89 Polycythemia D75.1 Nicotine addiction F17.200 Nicotine product type: cigarettes Chronic obstructive pulmonary disease J44.9 COPD exacerbation J44.1 NSTEMI (non-ST elevated myocardial infarction) I21.4 Right lower lobe pneumonia J18.9
--- NOTE | 2023-05-11 14:55 | PC.PHAR ---
pt states she takes care of her own medications-pt states she has a rx for eliquis from a year ago pt states she hasnt taken it but she has some pt unsure of the mg ext doesnt show when last filled -pt states spironolactone 25mg daily was dced ext shows last filled 03/15/23 90d/s-notes are made in the pharmacy comments
[2023-05-11] MEDS: methylPREDNISolone sod succ 125 mg/2 mL INJ 60 MG IV ×2 (16:52→22:46)
--- NOTE | 2023-05-11 18:57 | P.PNCC_ITS ---
Critical Care Event Note The high probability of a clinically significant, sudden or life threatening deterioration of the patient's [] system(s) required my full and direct attention, intervention and personal management. The critical care time is as shown. This time is in addition to time spent performing any reported procedures but includes the following: [x] Data and vital sign review and interpretation [x] Patient assessment, examination and intervention [x] Documentation [x] Medication orders and management Critical Care Time Code activated: No Critical Care Time (min): 45 Additional information about critical care time: Patient was examined multiple times throughout the afternoon into the evening, ? She was examined in the evening, she refused to wear the BiPAP, I had respiratory therapy, try heated high flow however patient would not tolerate it would not keep it on, ? Currently she is on 10 L, she went to try and nonrebreather, unfortunately no hypoxia pending, ? On 10 L, patient's O2 sats were in the low 70s, ? I examined patient in the afternoon, currently on 10 L, O2 sats in the low 70s, she is not in respiratory distress, no nasal flaring, no intercostal retractions, but she does have some peripheral cyanosis and central cyanosis, she is a bit drowsy, she follows commands she is alert oriented x4 ? We will her family numbers at bedside, ? I was blunt and honest with the patient that if she does not use BiPAP she will ? Patient tells me that she rather than use the BiPAP ? I advised her that her oxygen saturations are in the low 70s, she tells me th at they are always low, and that she can get through this, she will she wants to do is go home ? I advised her that currently she is on 10 L there is no way for me to get her home unless she wants to go home on hospice ? I discussed that as her oxygen saturation in the low 70s she is on 10 L, there is a high risk of cardiac arrhythmia, high risk of cardiac arrest, high risk of acute respiratory failure that will cause the end of her life, ? The only way to circumvent this is for her to use a BiPAP, ? Patient tells me that if that were to happen she would rather pass away, ? I had extensive discussion with patient with her family mother is at bedside that if she were to start to go to cardiac arrhythmias, going to respiratory failure, start to struggle would she want me to ease her pain and ease her suffering allow her to pass away comfortably, ? She tells me she knows where she is going, she is going to call it and she is okay with that, she is okay to ? Her family members at bedside were imploring her to try the BiPAP, but she tells me that she is too anxious, she cannot wear it, due to claustrophobia, I advised her we could try Ativan we could try Precedex, however she tells me that she does not want to use anxiety medication she does not want to be hooked on anxiety medication she does not want to try due to severe anxiety ? Patient and her daughter started to have an argument, so I gave them private moments to speak amongst themselves, ? I went back in the room later on, and spoke to patient and daughter, she tells me that she will try the BiPAP during the night she will try the anxiety medication, but if she is not tolerating it she is not going to wear the BiPAP mask ? I discussed the morbidity mortality associated with not using her BiPAP, with her acute hypoxic respiratory failure with her COPD, with recurrent hypoxia, she voices understanding, all questions answered, shared decision making ? The plan is that if she does not tolerate the BiPAP mask she wants it off, she understands morbidity and mortality ? Then the next goal would be to keep her on 10 L high flow or as high as we could we could try heated high flow, ? If she could not tolerate that we would watch her oxygen saturations and ? If she starts developing worsening respiratory failure, worsening cardiac events, arrhythmias, becoming confused, then she is okay with us using her pain easing her suffering and allowing her to pass away comfortably, ? I did discuss with her how we can get her home as she is adamant about trying to go home I advised her that on 10 L I think she would pass away in transport without oxygen or without 10 L, initially she want to leave AGAINST MEDICAL ADVICE, but she was talk to stay in the hospital by her family and nursing staff, so then we again talked about how she could go home, once she is more stable, I do not know how she could make it home on 10 L, we do not give that much of oxygen at home, and she is not willing to try BiPAP, we can certainly try oxy pendant, but I would recommend home hospice, however she keeps telling me that she does not want to be kept on pain medications at home, We discussed that if she does go home and start struggling, what we do then she does not really have a good answer every she tells me that she potentially will come back to the hospital but my concern is that she would suddenly at home and be in significant pain and suffering, she does reflect on this and says that at that point she would be considering pain medication, but there is no one to help her at home, her mom is at home, but she is wheelchair-bound, we will have to talk to case management tomorrow to try to figure this part out, he is from [place] they do want to try to take her up to [place] but I do not know how she could make that trip without passing away and transport ? I spoke to patient's family outside, I discussed with them my concerns that she has a high risk in the next 24 hours or even last to undergo cardiac event or cardiac arrhythmia or go to acute respiratory failure as a cause of her , as she remains quite hypoxic, and the other concern would be hypercarbia, the longer that she remains off the BiPAP her PCO2 will acutely she will become confused she will develop CO2 narcosis, which also cause cardiac stress, stress on her brain, stress on her lungs, she will have episodes of encephalopathy, confusion, ? However she is currently alert oriented x4 she can make all decisions for herself, and she tells me that she rather comfortably then go back on the BiPAP Coding Level of Care Code Acute Code for Kayy Ashford
[2023-05-11] MEDS: LORazepam 2 mg/mL INJ 1 mL 1 MG IVP (19:17)
--- NOTE | 2023-05-11 19:17 | PC.NURSE ---
Administered Ativan and applied BiPap while giving bedside report to DALY Cardona. Pt responded well to BiPap. Tolerated without showing distress. O2 sats increased to 100% during 15 minuted bedside report. Family at bedside saying goodbyes. Pt and family educated regarding the importance of wearing the BiPap and the possible and probably outcome if she does not.
[2023-05-12] VITALS (49 sets, daily range): BP systolic 85–132; BP diastolic 59–84; PULSE 78–111; RESP 14–28; TEMP 36.2; O2SAT 70–96
[2023-05-12] MEDS: cefTRIAXone 1,000 MG in sodium chloride 0.9% (plus) 50 ML 100 MG IV (01:19)
[2023-05-12] MEDS: enoxaparin 40 mg/0.4 mL Syringe SUBCUT (01:19)
[2023-05-12] MEDS: morphine 4 mg/mL SDV 1 mL 2 MG IVP ×2 (01:19→05:01)
--- NOTE | 2023-05-12 01:51 | PC.NURSE ---
Pt yelled out, help! This nurse responded to the yell. Pt was tying to pull bipap mask off and yelling, get it off! I can't breathe! this si choking me! This nurse assisted in removal of bipap mask and placing pt back on NC O2@10L. RT notified. This nurse educated pt on reasons for wearing bipap. Pt repeatedly refused bipap as well as IV precedex to help relieve her anxiety associated with bipap. Pt A&OX4. Pt stated, I have been lower. I am okay. I would rather than wear that thing. Pt also stated, I am done fighting my body. notified.
[2023-05-12] MEDS: pantoprazole 40 mg SDV IVP ×2 (03:22→14:37)
[2023-05-12] MEDS: ipratropium-albuterol 3 mL Neb INHALATION ×5 (03:28→19:51)
[2023-05-12] MEDS: LORazepam 2 mg/mL INJ 1 mL 1 MG IVP (03:46)
[2023-05-12] MEDS: methylPREDNISolone sod succ 125 mg/2 mL INJ 60 MG IV (04:20)
[2023-05-12 04:45] LABS: ABG PH Result 7.28 (7.35-7.45); Base Excess ABG 3.6 mmol/L (-2.0-2.0); Blood Gas Operator Identificat JB; Blood Gas Sample Site Brachial, right; Blood Gas Sample Type Arterial; HCO3 ABG 34.1 mmol/L (22-26); Oxygen Device BIPAP; PO2 ABG 92.1 mmHg (80.0-100.0); PO2 FiO2 Ratio Arterial Blood 0
[2023-05-12 04:48] LABS: ABG PCO2 72.5 mmHg (35-45)
[2023-05-12 05:33] LABS: Basophils % 0.2 %; Hematocrit 62.1 % (36-47); Lymphocytes # 0.6 10^3/uL (0.8-4.8); Lymphocytes % 7.5 %; Mean Corpuscular HGB Conc 31.2 g/dL (30-55); Mean Corpuscular Hemoglobin 30.2 pg (27-33); Mean Corpuscular Volume 96.7 fl (85-98); Mean Platelet Volume 9.1 fL (7.4-10.4); Monocytes # 0.2 10^3/uL (0.2-0.9); Monocytes % 2.9 %; Neutrophils # 7.47 10^3/uL (1.8-7.7); Neutrophils % 88.8 %; Nucleated Red Blood Cells % 0 %; Platelet Count 185 10^3/cmm (157-399); Red Blood Count 6.42 10^6/uL (3.85-5.65); White Blood Count 8.41 10^3/uL (3.29-11.43)
[2023-05-12 05:53] LABS: Alanine Aminotransferase 52 U/L (0-33); Albumin Level 3.2 g/dL (3.5-5.2); Alkaline Phosphatase 91 U/L (35-105); Anion Gap 14.4 (5-19); Aspartate Amino Transferase 61 U/L (0-32); Blood Urea Nitrogen 40 mg/dL (8-23); Calcium 8.6 mg/dL (8.5-10.5); Carbon Dioxide 29 mmol/L (22-29); Chloride 99 mmol/L (98-107); Globulin 3.8 g/dL (1.3-4.6); Glomerular Filtration Rate 62.3 mL/min (90-130); Glucose 148 mg/dL (65-115); Magnesium 2.4 mg/dL (1.7-2.3); Osmolality Calculated 299 mOsm/kg (285-295); Phosphorus 4.7 mg/dL (2.5-4.5); Potassium 4.4 mmol/L (3.5-5.1); Sodium 138 mmol/L (136-145); Total Bilirubin 0.4 mg/dL (0.15-1.2)
[2023-05-12 05:57] LABS: NT Pro B Type Natriuretic Pept 325 pg/mL (0-125)
[2023-05-12 06:11] LABS: Chol HDL Ratio 2.96 mg/dL (0.0-4.40); Cholesterol 145 mg/dL (0-200); HDL Cholesterol 49 mg/dL (60-100); LDL Cholesterol Calculated 76 mg/dL (50-129); LDL HDL Ratio 1.55 RATIO (0.00-3.22); Triglycerides 98 mg/dL (0-150)
[2023-05-12 06:15] LABS: Folate Level 8.7 ng/mL (4.8-37.3)
--- NOTE | 2023-05-12 07:00 | XRR_ITS ---
PROCEDURE INFORMATION: Exam: XR Chest Exam date and time: 05/12/2023 8:08 AM Age: 67 years old Clinical indication: Shortness of breath; Additional info: SOB TECHNIQUE: Imaging protocol: Radiologic exam of the chest. Views: 1 view. COMPARISON: CR (CHEST, ) 05/10/2023 11:03 PM FINDINGS: Lungs: Review of prior studies shows that patient has chronic interstitial lung disease. This finding does not appear significantly changed. There is mild atelectasis in the right lung base. No acute infiltrate is detected. Pleural spaces: Unremarkable. No pleural effusion. No pneumothorax. Heart/Mediastinum: The heart size is upper limits of normal and stable. Bones/joints: Unremarkable. XR/XR chest 1V portable [id number] IMPRESSION: Chronic interstitial lung disease. Mild atelectasis right lung base. No definite acute infiltrates.
[2023-05-12] MEDS: budesonide 0.5 mg/2 mL Neb INHALATION ×2 (08:27→19:51)
[2023-05-12] MEDS: nicotine 21 mg Patch 1 PATCH TRANSDERMA ×2 (09:52→22:28)
[2023-05-12] MEDS: azithromycin 500 MG in sodium chloride 0.9% 250 ML 250 MG IV (09:58)
--- NOTE | 2023-05-12 10:19 | PC.SLP ---
Attemtped [employer] TENDER evaluation however nursing state patient was on bipap. Unable to evaluate at this time.
--- NOTE | 2023-05-12 10:30 | PC.NURSE ---
I presented to the ICU as covering precision crop manager to speak with patient's family with Dr. Anaya as complaint was received from Aura Justin RN, patient's primary care nurse and shift kier boiler, stating that patient's daughter was upset and asking for transfer to another facility. Brief conference was had between myself, Dr. Anaya, Catarina Sullivan with Risk Management, Aura Justin RN, Prakash Mckeon, RT, and Amarilis Nash RN, CM to review patient's current plan of care, her wishes verbalized to Dr. Anaya and nursing staff, and family's verbalized wishes. Throughout the night, it was reported that patient decided she might want to try BiPAP at home with a potential for trying a different mask. Nursing staff relayed this to Dr. Anaya, who then followed up with patient's family this morning. Patient's daughter has since asked for a recliner for patient and was educated by nursing staff on in the even of an emergency, since patient on on 55% FIO2, that moving to the recliner would put her at an increased risk for poor outcomes in the event of respiratory failure. After discussing patient's current plan of care, I presented to the room with Dr. Anaya and we requested that patient's daughter and son-in-law step out into the waiting room to discuss questions/concerns. Patient's daughter stated she wanted patient transferred to [facility] because now that she wants to fight, nursing staff and Dr. Anaya won't let her be comfortable. She states not letting her have a recliner has done pissed me off and I want her out of here! . I discussed the risks of allowing patient to sit in the recliner with BiPAP and the risk of poor outcomes if she has respiratory failure, but her daughter states she's a DNR, I know her wishes and I signed as her PoA knowing what her wishes were and I wouldn't do that to her. Dr. Anaya and I agreed patient would be moved to a recliner after she awakens this morning as long as family understand the risks. Patient's daughter continued the conversation stating that she felt Dr. Anaya was saying two different things, once talking about Hospice but also talking about BiPAP options with patient. Dr. Anaya assured her that he speaks with all of his patients about their end-of-life decisions, not just this patient. Family continue to be adamant about a transfer and Dr. Anaya asked which hospitals they would approve transfer to, to which she replied [facility], [facility], or [facility]. Dr. Anaya informed them he would be working on a transfer, patient would stay on BiPAP for now, and patient would be moved to a recliner after she is awake this morning. Patient's daughter is adamant, stating several times, I'm not stupid, I know her heart could give out at any minute. and that she is fully aware of the extent of patient's illness and condition. I followed up with Aura Justin RN and informed her of the above information. She verbalizes understanding.
--- NOTE | 2023-05-12 11:37 | PC.NURSE ---
Family very unhappy with everything so far thus shift. Nurse Rehab Therapist Marissa notified along with Dr. Anaya, multiple attempts to appease family. Family insist on patient getting up to a recliner, when at this time patient is not alert nor orientated, on bipap at 55%FIO2. Multiple attempts to educate patients family on the dangers of being in a recliner when patient is medically unstable. Rehab Therapist aware. Awaiting PT to help try to transfer patient to chair.
--- NOTE | 2023-05-12 11:40 | PC.NURSE ---
I was contacted by Dr. Anaya to return to the ICU and witness the conversation between him and patient's daughter. We presented to the room and spoke with patient's daughter, informing her that [facility] would not accept at this time due to bed availability but was added to the waitlist, [facility] didn't accept, and [facility] accepted pending bed availability later today or tomorrow. Patient's daughter states that they would prefer [facility]. Dr. Anaya clarified with her that if [facility] called back with a bed, they would like to wait on [facility]. She requested that she be able to speak with her uncle and the rest of the family before making a final decision. He was in agreement with patient's daughter. I spoke with Aura Justin RN and informed her of the above information. She is working with PT to get patient up and in her recliner.
[2023-05-12] MEDS: methylPREDNISolone sod succ 125 mg/2 mL INJ 40 MG IV ×2 (11:58→20:13)
--- NOTE | 2023-05-12 11:58 | PC.RESP ---
pt daughter refuse abg
--- NOTE | 2023-05-12 15:19 | PC.NURSE ---
Patient up in recliner, still on bipap.
--- NOTE | 2023-05-12 15:20 | PC.NURSE ---
Patients family has agreed to accept a bed at [facility] pending bed assignment
--- NOTE | 2023-05-12 16:19 | PC.NURSE ---
Patient NPO status due to being bipap dependent. Patient switched over to non-rebreather mask per RT. Asked Dr. Anaya for a diet order, he okayed a clear liquid diet. Patient demanding a coke. Coke given to patient due to non compliance with any medical effort made so far thus admission. Diet order in place, plans to switch back to bipap later this shift.
[2023-05-12] MEDS: nystatin powder 15 gm Btl 1 APPLIC TOPICAL ×2 (17:00→20:14)
--- NOTE | 2023-05-12 18:31 | PC.NURSE ---
Patients family remains upset with everything from provider to nursing. Patients diet status is clear liquid, family and patient wanting food for patient. This nurse educated family and patient on being off bipap for 2-3 hours wasn't medically tolerating and advancing diet at this time. Patients family still adamant about patient getting food. Patient given a sandwich due to non compliance of any medical advice so far to thus stay and okayed per Dr. Anaya. Family also complaining of patients groin itching. Nystatin applied per nursing staff and MAR. This nurse and other nursing staff educated patient and family on keeping jennifer area dry and clean and that yeast infections do take time to heal. More nursing staff was brought into room to help educate and try to explain policy and procedures to upset daughter. Dr. Anaya also in room trying to appease the situation. site supervisor called to help deescalate situation.
--- NOTE | 2023-05-12 18:44 | PC.NURSE ---
Daughter continues to state she doesn't feel safe leaving her mother here because of her current diet order and the fact nystatin hasn't stopped the itching in patients jennifer area.
--- NOTE | 2023-05-12 19:18 | PC.NURSE ---
Assumed care of patient. Sitting in chair at bedside with family at bedside. Introduced myself to patient as her nurse for the night and daughter holds up hand with palm facing me and states We are eating now . Stated that I would not bother her at the moment and would let her eat. Asked if there was anything I could do for them and she states no, I will be here until she gets transferred and will be taking care of everything. Explained to daughter that we are still waiting on a bed assignment at [facility] and as soon as we get a bed I will call for transport. Daughter becomes upset and states I was told that they have a bed and those other ladies that were in here are calling for an ETA on the transportation . Attempted to explain to the daughter that a bed will be available soon but we can not call for transportation until there is a bed assigned. Daughter becomes upset and states I am about to loose it, this is what I am talking about. Notified Dr. Anaay and kiln head house operator of this. antonio Stileskiln head house operator called transportation center and was told that they are cleaning a bed right now and we will have a bed assigned soon.
--- NOTE | 2023-05-12 19:18 | PM.PN ---
Subjective Subjective: - Patient was seen this morning, multiple times, throughout the afternoon, into the evening, with multiple family meetings ? She was seen early in the morning, overnight events were that she wore the BiPAP during the night, that roughly 3 4 AM, she removed BiPAP mask, due to complaints of claustrophobia, was put on high flow nasal cannula, she was given medications to help with anxiety, Ativan, then put back on the BiPAP mask, ? She seen early this morning, blood work reviewed, she has increasing hypercarbia, she remains lethargic, somnolent, on BiPAP, does not arouse, does not awaken to sternal rub, ? I had a extensive discussion with patient's family at bedside about goals of care, I discussed continuing BiPAP therapy, and giving her time to see if she can blow off the CO2, discussed hospice care, making her hospice, easing her pain easing her suffering, and allowing her to pass away comfortably, ? My concern is is that if she does get better, will she comply with our instructions to keep the BiPAP on, she will need it on during the day as she feels short of breath, and schedule during the night while she is hospitalized she might needed on indefinitely depending on her mentation and her respiratory status, the issue that I am having is not having her remove the BiPAP mask, becoming agitated, she does become claustrophobic, medications that are used for agitation can such as Ativan, can decrease her respiratory drive, and worsen the hypercarbia problem ? Patient does have evidence of peripheral cyanosis, central cyanosis, no intercostal retractions, no nasal flaring, she remains on 55% BiPAP during the night she did require up to 75% ? I had a extensive discussion about patient's overall goals of care with patient's daughter at bedside who is his DPOA, currently patient cannot make decisions for herself, patient was adamant that she did not want to have CPR, she did not want to be intubated her daughter wants to comply with those wishes she wants to give her mom time to see if her mentation improves, her respiratory status improved ? Patient's daughter was quite upset with me, as she said that I misinterpreted what Ximena had said yesterday, she tells me that Ximena does not want to if she is ready if that if that time comes but she wants to fight, I advised daughter that clearly yesterday she told me that she wants to go home and that she is ready to , but I understand how that misinterpretation can happen as it could mean that she is willing to fight until the moment of ? I was told by nursing staff that patient's daughter was very upset with me, she wanted Ximena to be transferred to tertiary level center, ? Spoke to Ximena and her daughter, currently patient is not alert and awake to make decisions for herself, so I spoke to patient's daughter, ? Patient's daughter was upset with the care that I provided to her, she told me that I do not know what I am doing, and that she want her mother to be transferred to a tertiary level center, ? Options were [facility] or [place], ? I spoke to [facility], currently they are full, they had taken Ximena's information down, and will call us for updates, but I was told that the likelihood of a bed opening up today was fairly unlikely ? I spoke to [facility], I spoke to the transfer center, they had presented Ximena's case to their hospitalist, and they had declined the transfer as there was no medical indication for the transfer except patient family's request, ? I spoke to [facility], I spoke to the transfer center, spoke to their physician, discussed the deep case in detail, discussed with their hospitalist, my concerns for acute hypoxic hypercarbic respiratory failure, BiPAP dependence, and that family was upset with the care that I was giving here to [facility] that they prefer patient to be transferred to tertiary level center, ? I discussed with the patient's family at bedside, daughter, patient is much more alert and awake early this morning, she can squeeze my fingers, she is able to smile for me on the BiPAP mask, I presented the options, patient's daughter is agreeable for patient to be transferred to [facility] but she wants to see if a bed will open up at [place] ? Patient was examined throughout the afternoon, she is much more alert and awake, she can follow commands, I have kept her n.p.o. due to high risk of aspiration, felt patient's family was very upset with this, they wanted to try to feed her, I advised once her respiratory status improves, we could try a bedside swallow eval, in try her on clears, ? Patient's mentation improved, patient was taken off BiPAP placed on 15 L nonrebreather, she is actually sitting up to the side of the bed, family members at bedside, she is alert and oriented x3, I discussed with her the events of today, discussed with her her acute hypoxic hypercarbic respiratory failure, will continue to 15 L nonrebreather, will try to feed her clear liquids if she can tolerate it we can advance her diet as tolerated, but my concern would be for aspiration events, aspiration pneumonitis given her increased oxygen requirements, her tachypnea, she is a high risk of aspiration pneumonia, aspiration pneumonitis, we should slowly advance diet however patient's family was very upset, they told me that yesterday she could eat a cardiac diet, and now that were restricting her feeding, ? I listened to patient, her respiratory rate is 15, she does have wheezing in all lung murguia, she is much more alert and awake, I have advised nursing staff to try a GI soft diet, with aspiration precautions, ? Patient also has a yeast infection family is very upset that were not taking care of, we will continue nystatin powder, I will also give her 1 dose of IV Diflucan, ? I had a meeting with patient's daughter in the evening time she was very upset with the care that she has been receiving here at [facility], she is concerned that as her mom mother was not allowed to eat throughout the day and now that were trying to feed her late on in the evening, she also is concerned about her candidal infection that were not addressing, she is also concerned that we did not get her up to a chair early enough -I also had a detailed discussion with patient's family, patient's daughter, I spoke to [facility], patient's bed is hopefully going to be available this evening, I was told that they are cleaning the bed and should be calling for transport and bed assignment, ? I discussed with the patient's daughter that she is on 15 L nonrebreather, there is risk of morbidity and mortality in transport, they understand the risk of benefits, voiced understanding, all consents are, agreed to proceed for transfer ? I had a meeting with patient, and her family in her room, I discussed her overall goals of care, she wants to remain a DNR/DNI, patient's daughter wanted me to clarify her wishes, Ximena tells me that she is ready to , she has made peace with it, but she wants to fight, she wants to fight to the very end, but that does not mean that she wants to now, she does not want to go on hospice now, ? I clarified with her and her family that whenever we have patients are critically ill we want to introduce all the options are available to patients including continued medical care versus hospice, and I can understand where the confusion was, but my overall goal is to always comply with Yuval's wishes, and to ensure that she understands the risks and benefits of all the options and she makes an informed decision, currently she is alert oriented x4, she is following all commands, she wants to be transferred to [facility], she understands the risk and benefits of transfer, and agrees to proceed Vitals/I&O/Wt Last Vital Signs Temp 97.1 F L 05/12/23 08:30 Pulse 106 H 05/12/23 18:00 Resp 25 H 05/12/23 18:00 BP 120/78 05/12/23 18:00 Pulse Ox 92 05/12/23 18:00 O2 Del Method Non-Rebreather 05/12/23 15:50 O2 Flow Rate 15 05/12/23 15:50 FiO2 55 05/12/23 11:52 05/12/23 05/12/23 05/12/23 06:59 14:59 22:59 Intake Total 50 / 848.087 250 / 250 360 / 610 Output Total 500 / 800 Balance -450 / 48.087 250 / 250 360 / 610 Weight last 48 hrs Weight 103.447 kg Weight 99.5 kg Weight 99.5 kg Weight 98.883 kg Physical Exam Const: COMMON NORMALS: no acute distress and patient oriented x3 Resp: OTHER: Wheezing, in all lung murguia Cardio: COMMON NORMALS: regular rate, regular rhythm, S1 normal heart sound present and S2 normal heart sound present RATE: regular rate RHYTHM: regular rhythm HEART SOUNDS: S1 normal heart sound present and S2 normal heart sound present GI: COMMON NORMALS: Normal to inspection, nondistended, normoactive bowel sounds present and non-tender Extremity: COMMON NORMALS: no pedal edema Neuro: COMMON NORMALS: patient oriented x3 Psych: COMMON NORMALS: mental status grossly normal Urinary Catheter Management: Ricardo: Cath Placed During This Visit: yes Reason for Continuing Indwelling Catheter: Accurate Measurement of Urinary Output in Critically Ill Patients Urinary Catheter Date of Insertion: 05/11/23 Urinary Catheter Time of Insertion: 03:15 Data 05/12/23 05:10 05/12/23 05:10 Micro: Microbiology 05/11/23 11:20 Gram Stain - Final Sputum - Expectorated Sputum Sputum Culture - Preliminary 05/10/23 22:41 Blood Culture - Preliminary Blood NEGATIVE TO DATE 05/10/23 22:43 Blood Culture - Preliminary Blood NEGATIVE TO DATE 05/11/23 03:23 Bacterial Antigens - Final Urine Kidney 05/11/23 03:23 Legionella Urinary Antigen - Final Unknown Source A&P Assessment and plan (1) Encephalopathy acute: Likely secondary to hypercapnia ? Aspiration precautions Nicotine patch (2) Hypercapnic respiratory failure: (3) Chronic respiratory failure with hypoxia: (4) Non-compliant behavior: (5) Polycythemia: Most likely in setting of severe COPD. Chronic. (6) Nicotine addiction: Qualifiers: Nicotine product type: cigarettes (7) Chronic obstructive pulmonary disease: (8) COPD exacerbation: (9) NSTEMI (non-ST elevated myocardial infarction): (10) Right lower lobe pneumonia: Plan Acute hypercarbic hypoxic respiratory failure ? Secondary to COPD exacerbation, ? Secondary to right lower lobe pneumonia ? Patient has baseline Gold D COPD, continues to smoke, chronically on 5 L ? Plan, ? Continue Solu-Medrol 40 mg IV push every 8 hours as needed, ? Continue Precedex for anxiety, ? Currently on 15 L nonrebreather, O2 sats in the high 90s, does have peripheral cyanosis, central cyanosis, will allow her to feed, with aspiration precautions, small volume feeds, and then put her back on BiPAP hopefully for transport ? Continue BiPAP therapy, patient would clinically benefit from home trilogy machine and/or BiPAP therapy, would decrease her morbidity mortality, decrease risk of exacerbations ? Continue Rocephin 1 g IV every 24 hours ? Continue azithromycin 500 mg IV push every 24 hours, ? Follow sputum culture, blood cultures, ? Continue DuoNeb ? Continue budesonide, ? Monitor respiratory status closely, ? Patient is DNR/DNI ? As per patient's goals of care, she is ready to fight to the end, but if she dies, she has made peace with it NSTEMI ? Type I versus type II NSTEMI, likely supply demand ischemia from respiratory failure however cannot rule out underlying cardiac etiology given risk factors, ? Aspirin, statin, ? Serial EKGs, serial troponins, telemetry monitoring, ? CONCLUSIONS ?The LV appears to be of normal size.? Segmental wall motion ?analysis difficult ?Possibly normal left atrial size ?Thickened aortic valve. ?No pericardial effusion. ?Normal aortic annulus size. ?Only parasternal views were obtained.? Study had to be stopped ?as per patient's request.? ?Because of poor ultrasonic window the quality was suboptimal. -Continue to monitor Right lower lobe pneumonia, right lower lobe infiltrate seen on chest x-ray antibiotics as above, Polycythemia, likely secondary polycythemia from smoking, chronic hypoxia, chronic hypercarbia ? Will need to be monitored as outpatient Transaminitis Advance diet as tolerated, speech therapy eval, aspiration precautions Protonix for PUD prophylaxis Lovenox for DVT prophylaxis. Admit to ICU. CODE STATUS: Discussed with patient, DNR/DNI, discussed with DPOA, patient's daughter, Awaiting bed assignment [facility] in [place], transfer accepted Attestations Medical Necessity Statement*: Patient requires hospitalization for acute hypercarbic hypoxic respiratory failure, secondary to COPD, right lower lobe pneumonia, and High Time for a total of 60 minutes, includes reviewing past or interval history, examining/interviewing patient, placing orders, counseling patient/family/other support, updating patient/family/other support, discussing plan of care with staff, communicating with other healthcare providers, documenting encounter and coordinating care Diagnoses Encephalopathy acute G93.40 Hypercapnic respiratory failure J96.92 Chronic respiratory failure with hypoxia J96.11 Non-compliant behavior R46.89 Polycythemia D75.1 Nicotine addiction F17.200 Nicotine product type: cigarettes Chronic obstructive pulmonary disease J44.9 COPD exacerbation J44.1 NSTEMI (non-ST elevated myocardial infarction) I21.4 Right lower lobe pneumonia J18.9
--- NOTE | 2023-05-12 19:43 | PM.TDS ---
Transfer Summary Providers Date of Admission: 05/11/23 00:42 Date of Discharge/Transfer: 05/12/23 Attending Provider at Admission: Hair Guy MD Attending Provider at Transfer: Daniel Anaya MD Primary Care Provider: Gustavo Thompson MD Transfer Plans: Anticipated date of transfer: 05/12/23. Diagnoses at Discharge Discharge Diagnosis (1) Encephalopathy acute: Status: Acute (2) Hypercapnic respiratory failure: Status: Acute (3) Chronic respiratory failure with hypoxia: Status: Acute (4) Non-compliant behavior: Status: Acute (5) Polycythemia: Status: Acute (6) Nicotine addiction: Status: Acute Qualifiers: Nicotine product type: cigarettes (7) Chronic obstructive pulmonary disease: Status: Acute (8) COPD exacerbation: Status: Acute (9) NSTEMI (non-ST elevated myocardial infarction): Status: Acute (10) Right lower lobe pneumonia: Status: Acute Reason for Visit Reason for Visit AMS Hospital Course Hospital Course History taken over the phone through brother Mr. Finley. Ximena Montero is a 67 year old female chronic smoker, history of COPD on chronic oxygen supplementation of 4.5 to 5 L, noncompliant, BiPAP nightly noncompliant was brought into the ER because of worsening mentation and hallucination which has been getting worse for last 6 days but more so for last 3 days.? As per the brother further work-up of hallucination as an outpatient she was started on oral antibiotics for a possible sore on her legs by her primary care provider.? Not sure of any changes in her medications recently though as above that she is not compliant with medications as well. In the ER she was found to be hypoxic with ABG showing hypercapnia hence she was placed on BiPAP.? Patient was combative hence she was given 0.5 of IV Haldol. Patient was admitted to [facility] for acute hypoxic hypercarbic respiratory failure secondary to COPD, right lower lobe pneumonia, with NSTEMI, monitored in the ICU, acute encephalopathy secondary to hypercarbia, receiving steroid therapy, antibiotic therapy, BiPAP therapy clinically monitored. There was issues with compliance with BiPAP therapy, initially, after multiple family discussions, discussions with patient's, she was more agreeable to use BiPAP therapy. Due to family's and patient request, they requested transfer to tertiary level center, as they were disagreements about the care that I was providing to patient at [facility]. Patient was transferred to [facility], for acute hypoxic hypercarbic respiratory failure secondary to COPD, right lower lobe pneumonia, NSTEMI. Physical Exam Const: COMMON NORMALS: no acute distress and patient oriented x3 Resp: COMMON NORMALS: normal respiratory effort, No retractions and No use of accessory muscles AUSCULTATION: crackles and wheezes Cardio: COMMON NORMALS: regular rate, regular rhythm, S1 normal heart sound present and S2 normal heart sound present RATE: regular rate RHYTHM: regular rhythm HEART SOUNDS: S1 normal heart sound present and S2 normal heart sound present GI: COMMON NORMALS: Normal to inspection, nondistended, normoactive bowel sounds present and non-tender Extremity: COMMON NORMALS: no pedal edema Neuro: COMMON NORMALS: patient oriented x3 Psych: COMMON NORMALS: mental status grossly normal Urinary Catheter Management: Ricardo: Cath Placed During This Visit: yes Reason for Continuing Indwelling Catheter: Accurate Measurement of Urinary Output in Critically Ill Patients Urinary Catheter Date of Insertion: 05/11/23 Urinary Catheter Time of Insertion: 03:15 TS Data Studies Completed and Pending Pending at discharge Category Date Time Status Arterial Blood Gas W/O Coox AM LABS Lab 05/13/23 04:00 Ordered Arterial Blood Gas W/O Coox AM LABS Lab 05/14/23 04:00 Ordered Blood Culture Stat Lab 05/10/23 22:41 Results MRSA [Methicillin Resistant S.aureu] Routine Lab 05/11/23 00:54 Ordered NT Pro B Type Natriuretic Pept QAM Lab 05/13/23 06:00 Ordered NT Pro B Type Natriuretic Pept QAM Lab 05/14/23 06:00 Ordered Sputum Culture and Gram Stain Stat Lab 05/11/23 11:20 Results Completed Studies During Hospitalization Category Date Time Status XR chest 1V portable [id number] Routine Exams 05/12/23 07:00 Completed XR chest 1V portable [id number] Stat Exams 05/10/23 22:21 [place] [id number] Routine Ultrasound 05/11/23 09:30 Completed CV. echo complete* [id number] Routine Ultrasound 05/11/23 00:52 Completed Laboratory Last Values WBC 8.41 10^3/uL (3.29-11.43) 05/12/23 05:10 RBC 6.42 10^6/uL (3.85-5.65) H 05/12/23 05:10 Hgb 19.40 g/dL (11.27-16.99) H 05/12/23 05:10 Hct 62.1 % (36-47) H 05/12/23 05:10 MCV 96.7 fl (85-98) 05/12/23 05:10 MCH 30.2 pg (27-33) 05/12/23 05:10 MCHC 31.2 g/dL (30-55) 05/12/23 05:10 RDW 19.0 % (12.1-15.1) H 05/12/23 05:10 Plt Count 185 10^3/cmm (157-399) 05/12/23 05:10 MPV 9.1 fL (7.4-10.4) 05/12/23 05:10 Neut % (Auto) 88.8 % 05/12/23 05:10 Lymph % (Auto) 7.5 % 05/12/23 05:10 [place] % (Auto) 2.9 % 05/12/23 05:10 Eos % (Auto) 0.0 % 05/12/23 05:10 Baso % (Auto) 0.2 % 05/12/23 05:10 Neut # (Auto) 7.47 10^3/uL (1.8-7.7) 05/12/23 05:10 Lymph # (Auto) 0.6 10^3/uL (0.8-4.8) L 05/12/23 05:10 [place] # (Auto) 0.2 10^3/uL (0.2-0.9) 05/12/23 05:10 Eos # (Auto) 0.0 10^3/uL (0.0-0.8) 05/12/23 05:10 Baso # (Auto) 0.0 10^3/uL (0.0-0.1) 05/12/23 05:10 Nucleated RBC % (auto) 0 % 05/12/23 05:10 Nucleated RBCs # 0.0 /100WBC 05/12/23 05:10 Specimen Type Arterial 05/12/23 04:29 Sample Site Brachial, right 05/12/23 04:29 ABG pH 7.28 (7.35-7.45) L 05/12/23 04:29 ABG pCO2 72.5 mmHg (35-45) H* 05/12/23 04:29 ABG pO2 92.1 mmHg (80.0-100.0) 05/12/23 04:29 ABG PO2/FiO2 Ratio 0 05/12/23 04:29 ABG HCO3 34.1 mmol/L (22-26) H 05/12/23 04:29 ABG O2 Saturation 95.1 05/11/23 03:55 ABG Base Excess 3.6 mmol/L (-2.0-2.0) H 05/12/23 04:29 [place] Test N/a 05/12/23 04:29 A-a O2 Gradient 16.1 mmHg (5-10) H 05/11/23 03:55 Hematocrit 62.0 % (37-47) H 05/12/23 04:29 Hgb O2 Saturation 91.8 % (95-100) L 05/11/23 03:55 Carboxyhemoglobin 3.4 %THgb (0.4-20.1) 05/11/23 03:55 Methemoglobin 0.0 % (0.4-1.5) L 05/11/23 03:55 Total Hemoglobin 20.7 g/dL (12-16) H 05/11/23 03:55 Sodium 140.0 mmol/L (131-143) 05/11/23 03:55 Potassium 4.2 mmol/L (3.5-5.0) 05/11/23 03:55 Glucose 161.0 mg/dL (70-115) H 05/11/23 03:55 Ionized Calcium 1.2 mmol/L (1.1-1.4) 05/11/23 03:55 O2 Delivery Device Bipap 05/12/23 04:29 O2 Liters/Min 6.0 % 05/10/23 23:23 FiO2 75.0 % 05/12/23 04:29 PEEP 8.0 cmH20 05/11/23 03:55 Software Application Tester ID Geoffrey 05/12/23 04:29 Sodium 138 mmol/L (136-145) 05/12/23 05:10 Potassium 4.4 mmol/L (3.5-5.1) 05/12/23 05:10 Chloride 99 mmol/L (98-107) 05/12/23 05:10 Carbon Dioxide 29 mmol/L (22-29) 05/12/23 05:10 Anion Gap 14.4 (5-19) 05/12/23 05:10 BUN 40 mg/dL (8-23) H 05/12/23 05:10 Creatinine 0.9 mg/dL (0.5-0.9) 05/12/23 05:10 GFR Calculation 62.3 mL/min (90-130) L 05/12/23 05:10 Glucose 148 mg/dL (65-115) H 05/12/23 05:10 Calculated Osmolality 299 mOsm/kg (285-295) H 05/12/23 05:10 Lactic Acid 1.4 mmol/L (0.5-2.2) 05/10/23 22:43 Calcium 8.6 mg/dL (8.5-10.5) 05/12/23 05:10 Phosphorus 4.7 mg/dL (2.5-4.5) H 05/12/23 05:10 Magnesium 2.4 mg/dL (1.7-2.3) H 05/12/23 05:10 Iron 60 ug/dL (37-145) 05/11/23 00:00 TIBC 323 mcg/dl 05/11/23 00:00 % Saturation 18.5 % (20-50) L 05/11/23 00:00 Unsat Iron Binding 263 ug/dL (112-347) 05/11/23 00:00 Total Bilirubin 0.4 mg/dL (0.15-1.2) 05/12/23 05:10 AST 61 U/L (0-32) H 05/12/23 05:10 ALT 52 U/L (0-33) H 05/12/23 05:10 Alkaline Phosphatase 91 U/L (35-105) 05/12/23 05:10 Troponin T Baseline 31 ng/L (0-10) H 05/10/23 22:43 Troponin T 120 Minute 33.63 ng/L (0-10) H 05/11/23 00:55 Delta Troponin T 2.63 ABS# (0-10) 05/11/23 00:55 Troponin T Hi Sens 6Hr 26.16 ng/L (0-10) H 05/11/23 04:50 Troponin T Hi Sens 6Hr Delta -4.84 ng/L (0-12) L 05/11/23 04:50 NT-Pro-B Natriuret Pep 325 pg/mL (0-125) H 05/12/23 05:10 Total Protein 7.0 g/dL (6.6-8.7) 05/12/23 05:10 Albumin 3.2 g/dL (3.5-5.2) L 05/12/23 05:10 Globulin 3.8 g/dL (1.3-4.6) 05/12/23 05:10 Triglycerides 98 mg/dL (0-150) 05/12/23 05:10 Cholesterol 145 mg/dL (0-200) 05/12/23 05:10 LDL Cholesterol, Calc 76 mg/dL (50-129) 05/12/23 05:10 HDL Cholesterol 49 mg/dL (60-100) L 05/12/23 05:10 LDL/HDL Ratio 1.55 RATIO (0.00-3.22) 05/12/23 05:10 Cholesterol/HDL Ratio 2.96 mg/dL (0.0-4.40) 05/12/23 05:10 Vitamin B12 914 pg/mL (232-1245) 05/11/23 00:00 Folate 8.7 ng/mL (4.8-37.3) 05/12/23 05:10 Procalcitonin 0.10 ng/mL (0-0.5) 05/12/23 05:10 TSH 0.72 uIU/mL (0.27-4.20) 05/11/23 00:00 Urine Color [place] (Yellow) 05/11/23 03:23 Urine Appearance Clear (CLEAR) 05/11/23 03:23 Urine pH 5 (5-7) 05/11/23 03:23 Ur Specific [place] 1.025 (1.005-1.030) 05/11/23 03:23 Urine Protein 1+ (Negative) H 05/11/23 03:23 Urine Glucose (UA) Norm (Normal) 05/11/23 03:23 Urine Ketones 1+ (Negative) H 05/11/23 03:23 Urine Blood Neg (Negative) 05/11/23 03:23 Urine Nitrate Negative (Negative) 05/11/23 03:23 Urine Bilirubin 1+ (Negative) H 05/11/23 03:23 Urine Urobilinogen 1 mg/dL (Negative) H 05/11/23 03:23 Ur Leukocyte Esterase Negative (Negative) 05/11/23 03:23 Urine RBC 0-4 /hpf (0-2) H 05/11/23 03:23 Urine WBC 0-4 /hpf (0-5) H 05/11/23 03:23 Ur Squamous Epith Cells 0-4 /hpf (0-5) H 05/11/23 03:23 Amorphous Sediment 2+ /hpf 05/11/23 03:23 Urine Bacteria 1+ /hpf (NONE) H 05/11/23 03:23 Hyaline Casts 10-15 /lpf H 05/11/23 03:23 Urine Mucus 4+ /hpf 05/11/23 03:23 Nasal Influ A H1 2008 PCR Not detected (NOT DETECT) 05/10/23 23:45 Urine Opiates Screen Negative ng/mL (Negative) 05/11/23 03:23 Ur Barbiturates Screen Negative ng/mL (Negative) 05/11/23 03:23 Ur Phencyclidine Scrn Negative ng/mL (Negative) 05/11/23 03:23 Ur Amphetamines Screen Negative ng/mL (Negative) 05/11/23 03:23 U Benzodiazepines Scrn Negative ng/mL (Negative) 05/11/23 03:23 Urine Cocaine Screen Negative ng/mL (Negative) 05/11/23 03:23 U Marijuana (THC) Screen Negative ng/mL (Negative) 05/11/23 03:23 Ethyl Alcohol < 10 mg/dL (0-10) 05/11/23 00:55 Adenovirus (PCR) Not detected (NOT DETECT) 05/10/23 23:45 C. pneumoniae DNA (PCR) Not detected (NOT DETECT) 05/10/23 23:45 Coronavirus 229E (PCR) Not detected (NOT DETECT) 05/10/23 23:45 Human Metapneumovir PCR Not detected (NOT DETECT) 05/10/23 23:45 Influenza A (H1) PCR Not detected (NOT DETECT) 05/10/23 23:45 Influenza A (H3) PCR Not detected (NOT DETECT) 05/10/23 23:45 Influenza Type A (PCR) Not detected (NOT DETECT) 05/10/23 23:45 Influenza Type B (PCR) Not detected (NOT DETECT) 05/10/23 23:45 M. pneumoniae (PCR) Not detected (NOT DETECT) 05/10/23 23:45 Parainfluenza 1 (PCR) Not detected (NOT DETECT) 05/10/23 23:45 Parainfluenza 2 (PCR) Not detected (NOT DETECT) 05/10/23 23:45 Parainfluenza 3 (PCR) Not detected (NOT DETECT) 05/10/23 23:45 Parainfluenza 4 (PCR) Not detected (NOT DETECT) 05/10/23 23:45 RSV Type A (PCR) Not detected (NOT DETECT) 05/10/23 23:45 RSV Type B (PCR) Not detected (NOT DETECT) 05/10/23 23:45 Entero/Rhino (PCR) Not detected (NOT DETECT) 05/10/23 23:45 SARS-CoV-2 (PCR) Not detected (NOT DETECT) 05/10/23 23:45 Radiology Impressions Venous Duplex 05/11/23 09:30 IMPRESSION: No DVT identified in either right or left lower extremity. Please note that this technique does not exclude thrombus isolated to the calf veins. Chest X-Ray 05/12/23 07:00 IMPRESSION: Chronic interstitial lung disease. Mild atelectasis right lung base. No definite acute infiltrates. Recent Clincial Data Last Vital Signs Temp 97.1 F L 05/12/23 08:30 Pulse 106 H 05/12/23 18:00 Resp 25 H 05/12/23 18:00 BP 120/78 05/12/23 18:00 Pulse Ox 92 05/12/23 18:00 O2 Del Method Non-Rebreather 05/12/23 15:50 O2 Flow Rate 15 05/12/23 15:50 FiO2 55 05/12/23 11:52 Vital Signs Temp Pulse Resp BP Pulse Ox O2 Del Method O2 Flow Rate 05/12/23 18:00 106 H 25 H 120/78 92 05/12/23 17:30 101 H 17 120/78 96 05/12/23 17:00 98 17 120/78 95 05/12/23 16:30 104 H 18 120/78 96 05/12/23 16:00 98 21 H 114/81 92 05/12/23 15:30 88 16 114/81 05/12/23 15:00 90 16 120/84 05/12/23 14:30 120/84 05/12/23 16:00 95 05/12/23 16:02 95 05/12/23 15:50 97 18 94 Non-Rebreather 15 05/12/23 14:00 91 16 105/68 90 05/12/23 13:30 94 15 105/68 91 05/12/23 13:00 102 H 15 105/68 93 05/12/23 12:30 102 H 15 105/68 91 05/12/23 12:00 91 15 110/65 88 L 05/12/23 11:30 93 16 110/65 90 05/12/23 11:00 96 18 110/65 89 L 05/12/23 10:30 103 H 14 110/65 91 05/12/23 11:52 88 90 05/12/23 11:51 88 14 90 BiPAP 05/12/23 10:00 88 15 123/70 89 L 05/12/23 09:30 92 14 123/70 90 05/12/23 09:00 92 14 123/70 90 05/12/23 08:00 05/12/23 08:00 97 05/12/23 08:30 97.1 F L 97 16 123/70 89 L 05/12/23 08:00 98 15 115/74 90 05/12/23 08:32 97 89 L 05/12/23 08:29 96 14 89 L BiPAP FiO2 05/12/23 18:00 05/12/23 17:30 05/12/23 17:00 05/12/23 16:30 05/12/23 16:00 05/12/23 15:30 05/12/23 15:00 05/12/23 14:30 05/12/23 16:00 05/12/23 16:02 05/12/23 15:50 05/12/23 14:00 05/12/23 13:30 05/12/23 13:00 05/12/23 12:30 05/12/23 12:00 05/12/23 11:30 05/12/23 11:00 05/12/23 10:30 05/12/23 11:52 55 05/12/23 11:51 55 05/12/23 10:00 05/12/23 09:30 05/12/23 09:00 05/12/23 08:00 55 05/12/23 08:00 05/12/23 08:30 05/12/23 08:00 05/12/23 08:32 55 05/12/23 08:29 50 Intake & Output/Weight 05/10/23 05/11/23 05/12/23 05/13/23 06:59 06:59 06:59 06:59 Intake Total 60.013 / 60.013 848.087 / 848.087 610 / 610 Output Total 240 / 240 800 / 800 Balance -179.987 / -179.987 48.087 / 48.087 610 / 610 Weight 99.5 kg 103.447 kg Vitals Last Vital Signs Temp 97.1 F L 05/12/23 08:30 Pulse 106 H 05/12/23 18:00 Resp 25 H 05/12/23 18:00 BP 120/78 05/12/23 18:00 Pulse Ox 92 05/12/23 18:00 O2 Del Method Non-Rebreather 05/12/23 15:50 O2 Flow Rate 15 05/12/23 15:50 FiO2 55 05/12/23 11:52 TS Medications Medications Acetaminophen (Acetaminophen 325 Mg Tablet) 650 mg PO Q6H PRN PRN Reason: Mild/Mod Pain Or Temp >/= 101 Albuterol/Ipratropium (Ipratropium-Albuterol 3 Ml Neb) 3 ml INHALATION Q4H.RESPIRATORY SANTIAGO Last Admin: 05/12/23 15:44 Dose: 3 ml Allopurinol (Allopurinol 300 Mg Tablet) 300 mg PO DAILY SANTIAGO Last Admin: 05/12/23 09:50 Dose: Not Given Bisacodyl (Bisacodyl 5 Mg Tablet) 10 mg PO DAILY PRN; Protocol PRN Reason: Constipation (see protocol) Budesonide (Budesonide 0.5 Mg/2 Ml Neb) 0.5 mg INHALATION BID.RESPIRATORY SANTIAGO Last Admin: 05/12/23 08:27 Dose: 0.5 mg Enoxaparin Sodium (Enoxaparin 40 Mg/0.4 Ml Syringe) 40 mg SUBCUT Q24H [facility]AG[facility] Last Admin: 05/12/23 01:19 Dose: 40 mg Ceftriaxone Sodium 1,000 mg/ (Sodium Chloride) 50 mls @ 100 mls/hr IV Q24H SANTIAGO; Protocol Last Infusion: 05/12/23 01:51 Dose: Infused Dexmedetomidine/Sodium Chloride (Precedex) 400 mcg in 100 mls @ 0 mls/hr IV .Q0M SANTIAGO; Protocol Last Titration: 05/11/23 14:00 Dose: 0 mcg/kg/hr, 0 mls/hr Azithromycin 500 mg/ Sodium (Chloride) 250 mls @ 250 mls/hr IV Q24H S[facility]IAGO; Protocol Last Infusion: 05/12/23 10:56 Dose: Infused Fluconazole 100 mg/ N/A 50 mls @ 50 mls/hr IV Q24H [facility] Lactulose (Lactulose Oral Liq 20 Gm/30 Ml Udc) 10 gm PO DAILY PRN; Protocol PRN Reason: Constipation (see protocol) Lorazepam (Lorazepam 2 Mg/Ml Inj 1 Ml) 1 mg IVP Q8H PRN PRN Reason: ANXIETY Stop: 05/16/23 14:13 Last Admin: 05/12/23 03:46 Dose: 1 mg Magnesium Hydroxide (Magnesium Hydroxide 30 Ml Udc) 30 ml PO DAILY PRN; Protocol PRN Reason: Constipation (see protocol) Methylprednisolone Sodium Succinate (Methylprednisolone Sod Succ 125 Mg/2 Ml Inj) 40 mg IV Q8H [facility] Last Admin: 05/12/23 11:58 Dose: 40 mg Morphine Sulfate (Morphine 4 Mg/Ml Sdv 1 Ml) 2 mg IVP Q4H PRN PRN Reason: SEVERE PAIN Last Admin: 05/12/23 05:01 Dose: 2 mg Nicotine (Nicotine 21 Mg Patch) 1 patch TRANSDERMA DAILY [facility] Last Admin: 05/12/23 09:52 Dose: 1 patch Nystatin (Nystatin Powder 15 Gm Btl) 1 applic TOPICAL BID [facility] Last Admin: 05/12/23 17:00 Dose: 1 applic Ondansetron HCl (Ondansetron 2 Mg/Ml Sdv 2 Ml) 4 mg IVP Q8H PRN PRN Reason: vomiting, or N/V if npo Pantoprazole Sodium (Pantoprazole 40 Mg Sdv) 40 mg IVP Q12H [facility] Last Admin: 05/12/23 14:37 Dose: 40 mg Discontinued Medications Albuterol/Ipratropium (Ipratropium-Albuterol 3 Ml Neb) 3 ml INHALATION ONCE ONE Stop: 05/10/23 22:22 Last Admin: 05/10/23 23:00 Dose: 3 ml Albuterol/Ipratropium (Ipratropium-Albuterol 3 Ml Neb) 3 ml INHALATION Q6H.RESP [facility] Last Admin: 05/11/23 13:25 Dose: 3 ml Azithromycin (Azithromycin 250 Mg Tablet) 0 mg PO .COMPLEX SANTIAGO; Protocol Budesonide (Budesonide 0.5 Mg/2 Ml Neb) 0.5 mg INHALATION BID [facility] Last Admin: 05/11/23 20:17 Dose: 0.5 mg Famotidine (Famotidine 20 Mg Tablet) 40 mg PO DAILY [facility] Furosemide (Furosemide 10 Mg/Ml Sdv 4ml) 40 mg IVP Q12H [facility] Last Admin: 05/11/23 03:39 Dose: 40 mg Furosemide (Furosemide 10 Mg/Ml Sdv 4ml) 40 mg IVP ONCE ONE Stop: 05/11/23 22:04 Last Admin: 05/11/23 22:46 Dose: 40 mg Haloperidol Lactate (Haloperidol Inj 5 Mg/Ml Inj 1 Ml) 3 mg IVP ONCE ONE Stop: 05/10/23 22:46 Last Admin: 05/10/23 23:10 Dose: 3 mg Methylprednisolone Sodium Succinate 125 mg/ Sterile Water 2 mls @ 24 mls/hr IVP ONCE ONE Stop: 05/10/23 22:25 Last Infusion: 05/10/23 23:40 Dose: Infused Methylprednisolone Sodium (Succinate 60 mg/ Sterile Water) 0.96 mls @ 11.52 mls/hr IVP Q6H [facility] Last Admin: 05/11/23 21:07 Dose: Not Given Dexmedetomidine HCl 400 mcg/ (Sodium Chloride) 104 mls @ 0 mls/hr IV .Q0M [facility]; Protocol Dexmedetomidine HCl 400 mcg/ (Sodium Chloride) 104 mls @ 0 mls/hr IV .Q0M [facility]; Protocol Sodium Chloride (Sodium Chloride 0.9%) 1,000 mls @ 75 mls/hr IV .[id number] [facility] Stop: 05/11/23 17:34 Last Infusion: 05/11/23 11:00 Dose: 0 mls/hr Methylprednisolone Sodium Succinate (Methylprednisolone Sod Succ 125 Mg/2 Ml Inj) 60 mg IV Q6H [facility] Last Admin: 05/12/23 04:20 Dose: 60 mg Sucralfate (Sucralfate 1 Gm Tablet) 1 gm PO Q6H [facility] Last Admin: 05/12/23 13:15 Dose: Not Given Allergies procaine [From Novocain] Allergy (Intermediate, Verified 05/11/23 14:55) Unknown tramadol [From Ultram] Allergy (Intermediate, Verified 05/11/23 14:55) Unknown Home Medications albuterol sulfate 90 mcg/actuation aerosol inhaler (ProAir HFA) 2 puff inhalation Q6H PRN Shortness Of Breath 02/02/20 [History Confirmed 05/11/23] Nebulizer tubing #1 ea 02/12/22 [Rx Confirmed 05/11/23] azithromycin 250 mg tablet See Rx Instructions PO .COMPLEX #36 tabs 01/27/23 [Rx Confirmed 05/11/23] allopurinol 300 mg tablet 300 mg PO DAILY #90 tabs 02/10/23 [Rx Confirmed 05/11/23] furosemide 20 mg tablet (Lasix) 60 mg PO BID edema #540 tabs 03/25/23 [Rx Confirmed 05/11/23] clotrimazole-betamethasone 1 %-0.05 % topical cream 1 applic topical BID #15 grams 04/16/23 [Rx Confirmed 05/11/23] Wheelchair cushion for bed ulcer #1 ea 05/01/23 [Rx Confirmed 05/11/23] cetirizine 10 mg tablet (Allergy Relief (cetirizine)) 10 mg PO DAILY 05/11/23 [History Confirmed 05/11/23] cyanocobalamin (vitamin B-12) 1,000 mcg tablet (Vitamin B-12) 1,000 mcg PO DAILY 05/11/23 [History Confirmed 05/11/23] cyclobenzaprine 10 mg tablet 10 mg PO TID PRN Muscle Spasm 05/11/23 [History Confirmed 05/11/23] diclofenac potassium 50 mg tablet 50 mg PO BID PRN doesnt take when taking allopurinol 05/11/23 [History Confirmed 05/11/23] doxycycline hyclate 100 mg tablet 100 mg PO BID PRN flares 05/11/23 [History Confirmed 05/11/23] fluconazole 150 mg tablet 150 mg PO DAILY PRN unknown 05/11/23 [History Confirmed 05/11/23] ibuprofen 200 mg tablet 200 - 400 mg PO Q6H PRN Pain 05/11/23 [History Confirmed 05/11/23] ipratropium 0.5 mg-albuterol 3 mg (2.5 mg base)/3 mL nebulization soln 3 ml inhalation Q4H PRN Shortness Of Breath 05/11/23 [History Confirmed 05/11/23] magnesium oxide 400 mg (241.3 mg magnesium) tablet 400 mg PO DAILY 05/11/23 [History Confirmed 05/11/23] potassium chloride 10 mEq tablet,extended release 20 meq PO BID 05/11/23 [History Confirmed 05/11/23] Discharge Plan Discharge Condition: Serious Prescriptions: No Action albuterol sulfate [ProAir HFA] 90 mcg/actuation HFA aerosol inhaler 2 puff INHALATION Q6H PRN (Reason: Shortness Of Breath) (DME) Nebulizer tubing See Rx Instructions .Route .MEDSUPPLY Qty: 1 0RF Rx Instructions: As directed allopurinol 300 mg tablet 300 mg PO DAILY Qty: 90 3RF furosemide [Lasix] 20 mg tablet 60 mg PO BID Qty: 540 3RF Rx Instructions: 90 day supply okay. This is new dose (DME) Wheelchair cushion for bed ulcer See Rx Instructions .Route .MEDSUPPLY Qty: 1 2RF Rx Instructions: Place on any seat or chair to treat ulcerations azithromycin 250 mg tablet See Rx Instructions PO .COMPLEX Qty: 36 3RF Rx Instructions: Take 1 tab po on Mon, Fri and Friday clotrimazole-betamethasone 1-0.05 % cream 1 applic topical BID Qty: 15 3RF Vitamin B-12 1,000 mcg Tablet 1,000 mcg PO DAILY ibuprofen 200 mg Tablet 200 - 400 mg PO Q6H PRN (Reason: Pain) cyclobenzaprine 10 mg tablet 10 mg PO TID PRN (Reason: Muscle Spasm) ipratropium-albuterol 0.5 mg-3 mg(2.5 mg base)/3 mL solution for nebulization 3 ml inhalation Q4H PRN (Reason: Shortness Of Breath) Allergy Relief (cetirizine) 10 mg tablet 10 mg PO DAILY fluconazole 150 mg tablet 150 mg PO DAILY PRN (Reason: unknown) potassium chloride 10 mEq tablet extended release 20 meq PO BID magnesium oxide 400 mg (241.3 mg magnesium) tablet 400 mg PO DAILY diclofenac potassium 50 mg tablet 50 mg PO BID PRN (Reason: doesnt take when taking allopurinol) doxycycline hyclate 100 mg tablet 100 mg PO BID PRN (Reason: flares) Discharge Orders: Transfer Out of Facility (Order); Ordered 05/12/23 Ordered By: Daniel Anaya Referrals: Gustavo Thompson MD [Primary Care Provider] - Patient Instructions: Opioid Safety Transfer Attestations Time Spent in Transfer Care: less than 30 min Quality Metrics Clinical Quality Measures [ No reported AMI, CVA or VTE this stay] Coding Level of Care Code Acute Code for Chg Fwd Diagnoses Encephalopathy acute G93.40 Hypercapnic respiratory failure J96.92 Chronic respiratory failure with hypoxia J96.11 Non-compliant behavior R46.89 Polycythemia D75.1 Nicotine addiction F17.200 Nicotine product type: cigarettes Chronic obstructive pulmonary disease J44.9 COPD exacerbation J44.1 NSTEMI (non-ST elevated myocardial infarction) I21.4 Right lower lobe pneumonia J18.9
[2023-05-12] MEDS: fluconazole premix 100 MG in empty flexible container 1 EACH 50 MG IV (20:12)
--- NOTE | 2023-05-12 20:39 | PC.NURSE ---
Groin cleaned and 2nd dose of nystatin applied per Dr. Héctor cruz.
--- NOTE | 2023-05-12 23:05 | PC.NURSE ---
Transfer to [facility] via ambulance. Family at bedside. Patient alert, awake, and oriented.
== END 2023-05-12 23:02 | disposition short-term general hospital (02) | DRG 189 ==
LOC: ER 05-11 00:42 → ICU 05-11 00:50
PROVIDERS: Admitting Provider Student in an Organized Health Care Education/Training Program; Emergency Provider Emergency Medicine; PCP Family Medicine; Visit Provider Family Medicine
DX: J96.22 Acute and chronic respiratory failure with hypercapnia (principal); J18.9 Pneumonia, unspecified organism; I21.A1 Myocardial infarction type 2; J44.0 Chronic obstructive pulmonary disease with (acute) lower respiratory infection; J44.1 Chronic obstructive pulmonary disease with (acute) exacerbation; G93.40 Encephalopathy, unspecified; J96.21 Acute and chronic respiratory failure with hypoxia; F17.210 Nicotine dependence, cigarettes, uncomplicated; Z99.81 Dependence on supplemental oxygen; Z86.718 Personal history of other venous thrombosis and embolism; D75.1 Secondary polycythemia; R60.0 Localized edema; Z91.199 Patient's noncompliance with other medical treatment and regimen due to unspecified reason; R74.01 Elevation of levels of liver transaminase levels
CPT/HCPCS: 36415; 36600; 51702; 71045; 80051; 80053; 80061; 80306; 80307; 81000; 81001; 81015; 82330; 82607; 82746; 82803; 82805; 83540; 83550; 83605; 83735; 83880; 84100; 84145; 84443; 84484; 85025; 86140; 86403; 87040; 87070; 87086; 87205; 87400; 87426; 87449; 87486; 87581; 87633; 93005; 93306; 93970; 94640; 94660; 96372; 96374; 96375; 96376; 97161; 97530; 99285; C9113; J0456; J0696; J1450; J1630; J1650; J1940; J2060; J2270; J2930; J7030; J7050; J7626

== ENCOUNTER → 2023-06-20 08:35 | Outpatient (BNVA) | payer MEDICARE, OTHER, MEDICAID, SELFPAY | PROVIDERS: PCP Family Medicine; Visit Provider Family Medicine | DX: Z51.81 Encounter for therapeutic drug level monitoring (principal); E03.9 Hypothyroidism, unspecified; R60.1 Generalized edema; L89.309 Pressure ulcer of unspecified buttock, unspecified stage | CPT/HCPCS: 80053; 84443; 85025 ==

== ENCOUNTER 2023-11-05 10:45 | Outpatient (CLI) | payer MEDICARE, OTHER, SELFPAY ==
[2023-11-05 11:46] LABS: Basophils # 0.1 10^3/uL (0.0-0.1); Basophils % 0.4 %; Eosinophils # 0.3 10^3/uL (0.0-0.8); Eosinophils % 2.6 %; Hematocrit 50.9 % (36-47); Lymphocytes # 2.2 10^3/uL (0.8-4.8); Lymphocytes % 19.1 %; Mean Corpuscular HGB Conc 32.6 g/dL (30-55); Mean Corpuscular Hemoglobin 31.4 pg (27-33); Mean Corpuscular Volume 96.2 fl (85-98); Mean Platelet Volume 9.9 fL (7.4-10.4); Monocytes # 0.5 10^3/uL (0.2-0.9); Neutrophils # 8.44 10^3/uL (1.8-7.7); Neutrophils % 72.7 %; Nucleated Red Blood Cells % 0 %; Platelet Count 182 10^3/cmm (157-399); Red Blood Count 5.29 10^6/uL (3.85-5.65); Red Cell Distribution Width 13.6 % (12.1-15.1); White Blood Count 11.62 10^3/uL (3.29-11.43)
[2023-11-05 12:03] LABS: Uric Acid 9.6 mg/dL (2.4-5.7)
[2023-11-05 12:04] LABS: Alanine Aminotransferase 49 U/L (0-33); Albumin Level 4.1 g/dL (3.5-5.2); Alkaline Phosphatase 97 U/L (35-105); Aspartate Amino Transferase 36 U/L (0-32); Blood Urea Nitrogen 26 mg/dL (8-23); Calcium 9.5 mg/dL (8.5-10.5); Carbon Dioxide 29 mmol/L (22-29); Chloride 95 mmol/L (98-107); Globulin 3.6 g/dL (1.3-4.6); Glomerular Filtration Rate 62.1 mL/min (90-130); Glucose 181 mg/dL (65-115); Osmolality Calculated 297 mOsm/kg (285-295); Sodium 139 mmol/L (136-145); Total Bilirubin 0.4 mg/dL (0.15-1.2); Total Protein 7.7 g/dL (6.6-8.7)
[2023-11-05 12:24] LABS: Estmated Average Glucose 174; Hemoglobin A1C 7.7 % (4.0-6.0)
[2023-11-05 12:55] LABS: 25 Hydroxy Vitamin D 19 ng/mL (30-100)
[2023-11-06 14:47] LABS: Cyclic Citrullinated Peptide <16 UNITS
== END 2023-11-05 10:46 | disposition home or self-care (01) ==
LOC: LAB 10:49
PROVIDERS: Absent Provider Internal Medicine; PCP Family Medicine; Visit Provider Family Medicine
DX: E55.9 Vitamin D deficiency, unspecified (principal); Z51.81 Encounter for therapeutic drug level monitoring; E11.9 Type 2 diabetes mellitus without complications
CPT/HCPCS: 36415; 80053; 82306; 83036; 84550; 85025; 86200; 86431

== ENCOUNTER 2023-12-09 11:31 | Outpatient (CLI) | payer MEDICARE, OTHER, SELFPAY ==
[2023-12-09 12:27] LABS: Basophils # 0.1 10^3/uL (0.0-0.1); Basophils % 0.5 %; Eosinophils # 0.3 10^3/uL (0.0-0.8); Eosinophils % 2.7 %; Lymphocytes # 3.1 10^3/uL (0.8-4.8); Lymphocytes % 26.9 %; Mean Corpuscular HGB Conc 33.1 g/dL (30-55); Mean Corpuscular Hemoglobin 31.6 pg (27-33); Mean Corpuscular Volume 95.4 fl (85-98); Mean Platelet Volume 9.6 fL (7.4-10.4); Monocytes # 0.4 10^3/uL (0.2-0.9); Monocytes % 3.7 %; Neutrophils # 7.28 10^3/uL (1.8-7.7); Neutrophils % 64.4 %; Nucleated Red Blood Cells % 0 %; Platelet Count 167 10^3/cmm (157-399); Red Blood Count 5.03 10^6/uL (3.85-5.65); Red Cell Distribution Width 14.7 % (12.1-15.1); White Blood Count 11.32 10^3/uL (3.29-11.43)
[2023-12-09 12:37] LABS: INR 0.98 (0.8-1.2)
[2023-12-09 12:48] LABS: Alanine Aminotransferase 55 U/L (0-33); Albumin Level 3.9 g/dL (3.5-5.2); Alkaline Phosphatase 98 U/L (35-105); Anion Gap 19.6 (5-19); Aspartate Amino Transferase 42 U/L (0-32); Blood Urea Nitrogen 31 mg/dL (8-23); Calcium 9.4 mg/dL (8.5-10.5); Carbon Dioxide 26 mmol/L (22-29); Chloride 95 mmol/L (98-107); Globulin 3.3 g/dL (1.3-4.6); Glomerular Filtration Rate 62.1 mL/min (90-130); Glucose 211 mg/dL (65-115); Osmolality Calculated 297 mOsm/kg (285-295); Potassium 3.6 mmol/L (3.5-5.1); Sodium 137 mmol/L (136-145); Total Bilirubin 0.5 mg/dL (0.15-1.2); Total Protein 7.2 g/dL (6.6-8.7)
[2023-12-09 12:49] LABS: Uric Acid 7.5 mg/dL (2.4-5.7)
== END 2023-12-09 11:32 | disposition home or self-care (01) ==
PROVIDERS: Absent Provider Family Medicine; PCP Family Medicine; Visit Provider Internal Medicine
DX: Z51.81 Encounter for therapeutic drug level monitoring (principal); R23.3 Spontaneous ecchymoses; Z79.899 Other long term (current) drug therapy
CPT/HCPCS: 36415; 80053; 84550; 85025; 85610

== ENCOUNTER 2024-01-08 13:50 | Inpatient (IN) | payer MEDICARE, OTHER, SELFPAY ==
[2024-01-08] VITALS (14 sets, daily range): BP systolic 79–118; BP diastolic 59–75; PULSE 84–112; RESP 15–24; TEMP 36.8; O2SAT 85–94; BMI 38.3
--- NOTE | 2024-01-08 14:18 | XRR_ITS ---
PROCEDURE INFORMATION: Exam: XR Chest Exam date and time: 01/08/2024 2:35 PM Age: 68 years old Clinical indication: Shortness of breath; Additional info: SOB TECHNIQUE: Imaging protocol: Radiologic exam of the chest. Views: 1 view. COMPARISON: 1. CR XR chest 1V portable [id number] 05/10/2023 11:03 PM 2. CR XR chest 1V portable [id number] 10/08/2020 1:40 AM 3. CR XR chest 1V portable [id number] 05/12/2023 8:08 AM 4. CR XR chest 1V portable [id number] 12/03/2021 10:36 AM FINDINGS: Lungs: Bilateral diffuse chronic appearing interstitial markings. No consolidation. Pleural spaces: No substantial pleural effusion or pneumothorax. Heart/Mediastinum: Unremarkable. No cardiomegaly. Vasculature: Aortic arch atherosclerotic calcification. Bones/joints: Degenerative changes along the spine. Chronic fracture deformity of the left 8th rib. XR/XR chest 1V portable [id number] IMPRESSION: No acute findings.
--- NOTE | 2024-01-08 14:20 | ED_ITS ---
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 She states she feels like she is getting dehydrated she states she has been feeling weak having some slight confusion. No recent antibiotic use denies any fever she denies any abdominal pain. Denies any worse improving factors. PFSH ED 2 PFSH: Medical History Gout DVT (deep venous thrombosis) Cellulitis of foot excluding toe Polycythemia Chronic respiratory failure with hypoxia Thyroid nodule Ulnar nerve disease Lung nodule Aneurysm Chronic obstructive pulmonary disease Surgical History History of decompression of ulnar nerve History of arthroscopy of both shoulders Hx of tonsillectomy S/P excision of vocal cord nodule History of cholecystectomy H/O shoulder surgery History of carpal tunnel surgery H/O knee surgery History of hysterectomy H/O exploratory laparotomy H/O left wrist surgery Family History Other CAD (coronary artery disease) Cancer Diabetes Social History Smoking and tobacco/nicotine status: current every day tobacco/nicotine user cigarettes Packs smoked per day: 1.5 Years cigarettes smoked: 46 [ Other cigarette details: No smoking since April 2023 other than 1 cigarette.] Quit status (tobacco/nicotine): has tried quititng Number of times tried to quit tobacco: 20 Second hand smoke exposure: Yes Alcohol intake: never Substance/Drug Use: never Lives independently: Yes Household members: family Marital status: Current occupational status: disabled Do you think of yourself as: Straight/Heterosexual Current gender identity: Female Course 2 Vital Signs: Vital signs: Vital Signs Temperature 98.3 F 01/08/24 13:53 Pulse Rate 107 H 01/08/24 15:30 Respiratory Rate 18 01/08/24 13:53 Blood Pressure 113/66 01/08/24 14:30 Pulse Oximetry 92 01/08/24 15:30 Oxygen Delivery Me thod Nasal Cannula 01/08/24 15:30 Oxygen Flow Rate 5 01/08/24 15:30 MDM - Nausea/Vomiting/Diarrhea Medical Decision Making Patient presents here with hyperglycemia she been having vomiting and diarrhea blood sugar here is over thousand we will start her on insulin drip she has no signs of being in DKA I spoke to hospitalist will admit to ICU Medical Records I reviewed the patient's medical records. Lab Data I reviewed the patient's lab results. 01/08/24 14:28 01/08/24 14:28 Radiology Impressions Chest X-Ray 01/08/24 14:18 IMPRESSION: No acute findings. ADDENDUM: 01/08/24 1503 Addendum: 1.1 cm right basilar nodular density is similar to couple prior exams, likely summation artifact. Laboratory Results WBC 10.88 10^3/uL (3.29-11.43) 01/08/24 14:28 RBC 4.80 10^6/uL (3.85-5.65) 01/08/24 14:28 Hgb 15.30 g/dL (11.27-16.99) 01/08/24 14:28 Hct 45.7 % (36-47) 01/08/24 14:28 MCV 95.2 fl (85-98) 01/08/24 14:28 MCH 31.9 pg (27-33) 01/08/24 14:28 MCHC 33.5 g/dL (30-55) 01/08/24 14:28 RDW 14.8 % (12.1-15.1) 01/08/24 14:28 Plt Count 164 10^3/cmm (157-399) 01/08/24 14:28 MPV 11.0 fL (7.4-10.4) H 01/08/24 14:28 Neut % (Auto) 86.6 % 01/08/24 14:28 Lymph % (Auto) 8.0 % 01/08/24 14:28 [place] % (Auto) 3.1 % 01/08/24 14:28 Eos % (Auto) 0.6 % 01/08/24 14:28 Baso % (Auto) 0.6 % 01/08/24 14:28 Neut # (Auto) 9.43 10^3/uL (1.8-7.7) H 01/08/24 14:28 Lymph # (Auto) 0.9 10^3/uL (0.8-4.8) 01/08/24 14:28 [place] # (Auto) 0.3 10^3/uL (0.2-0.9) 01/08/24 14:28 Eos # (Auto) 0.1 10^3/uL (0.0-0.8) 01/08/24 14:28 Baso # (Auto) 0.1 10^3/uL (0.0-0.1) 01/08/24 14:28 Nucleated RBC % (auto) 0 % 01/08/24 14:28 Nucleated RBCs # 0.0 /100WBC 01/08/24 14:28 ESR 43 mm/hr (0-15) H 01/08/24 14:28 Specimen Type Venous 01/08/24 15:28 Sample Site Not specified 01/08/24 15:28 ABG pH Cancelled 01/08/24 15:28 ABG pCO2 Cancelled 01/08/24 15:28 ABG pO2 Cancelled 01/08/24 15:28 ABG PO2/FiO2 Ratio Cancelled 01/08/24 15:28 ABG HCO3 Cancelled 01/08/24 15:28 ABG Base Excess Cancelled 01/08/24 15:28 [place] Test N/a 01/08/24 15:28 VBG pH 7.39 (7.32-7.42) 01/08/24 15:28 VBG pCO2 47.5 mmHg (41-51) 01/08/24 15:28 VBG pO2 65.1 mmHg (25-40) H 01/08/24 15:28 VBG HCO3 28.8 mmol/L (24-28) H 01/08/24 15:28 VBG Base Excess 2.9 mmol/L (-3.0-3.0) 01/08/24 15:28 VBG Hematocrit 48.4 % (37-47) H 01/08/24 15:28 Hematocrit Cancelled 01/08/24 15:28 O2 Delivery Device Nc 01/08/24 15:28 Water Softener Servicer ID Amh 01/08/24 15:28 Sodium 120 mmol/L (136-145) L 01/08/24 14:28 Potassium 5.0 mmol/L (3.5-5.1) 01/08/24 14:28 Chloride 80 mmol/L (98-107) L 01/08/24 14:28 Carbon Dioxide 24 mmol/L (22-29) 01/08/24 14:28 Anion Gap 21.0 (5-19) H 01/08/24 14:28 BUN 23 mg/dL (8-23) 01/08/24 14:28 Creatinine 1.0 mg/dL (0.5-0.9) H 01/08/24 14:28 GFR Calculation 55.0 mL/min (90-130) L 01/08/24 14:28 Glucose 1083 mg/dL (65-115) H* 01/08/24 14:28 Calculated Osmolality 308 mOsm/kg (285-295) H 01/08/24 14:28 Calcium 8.3 mg/dL (8.5-10.5) L 01/08/24 14:28 Total Bilirubin 0.7 mg/dL (0.15-1.2) 01/08/24 14:28 AST 45 U/L (0-32) H 01/08/24 14:28 ALT 51 U/L (0-33) H 01/08/24 14:28 Alkaline Phosphatase 154 U/L (35-105) H 01/08/24 14:28 C-Reactive Protein 20.3 mg/L (0.0-4.9) H 01/08/24 14:28 Total Protein 7.1 g/dL (6.6-8.7) 01/08/24 14:28 Albumin 3.9 g/dL (3.5-5.2) 01/08/24 14:28 Globulin 3.2 g/dL (1.3-4.6) 01/08/24 14:28 Lipase 53 U/L (13-60) 01/08/24 14:28 Procalcitonin 0.25 ng/mL (0-0.5) 01/08/24 14:28 Serum Ketones Negative (Negative) 01/08/24 14:28 No radiology studies performed this visit Critical Care Time 2 Critical Care Time: Critical Care Time: Yes Total Critical Care Time: 35 Attestation: The high probability of a clinically significant, sudden or life threatening deterioration of the patient's endocrine system(s) required my full and direct attention, intervention and personal management. The critical care time is as shown. This time is in addition to time spent performing any reported procedures but includes the following: [x] Data and vital sign review and interpretation [x] Patient assessment, examination and intervention [x] Documentation [x] Medication orders and management Discharge Plan Discharge Patient Disposition: Admitted As Inpatient Admit Provider: Kari Miller Clinical Impression: Nausea vomiting and diarrhea, Hyperglycemia Condition: Stable Coding Level of Care Code ED Lithograph Designer for Kayy Ashford
[2024-01-08 14:35] LABS: Basophils # 0.1 10^3/uL (0.0-0.1); Basophils % 0.6 %; Eosinophils # 0.1 10^3/uL (0.0-0.8); Eosinophils % 0.6 %; Hematocrit 45.7 % (36-47); Lymphocytes # 0.9 10^3/uL (0.8-4.8); Mean Corpuscular HGB Conc 33.5 g/dL (30-55); Mean Corpuscular Hemoglobin 31.9 pg (27-33); Mean Corpuscular Volume 95.2 fl (85-98); Monocytes # 0.3 10^3/uL (0.2-0.9); Monocytes % 3.1 %; Neutrophils # 9.43 10^3/uL (1.8-7.7); Neutrophils % 86.6 %; Nucleated Red Blood Cells % 0 %; Platelet Count 164 10^3/cmm (157-399); Red Cell Distribution Width 14.8 % (12.1-15.1); White Blood Count 10.88 10^3/uL (3.29-11.43)
[2024-01-08] MEDS: sodium chloride 0.9% 1,000 ML 999 ML IV (14:36)
[2024-01-08] MEDS: ondansetron 2 mg/ML SDV 2 mL 4 MG IVP (14:37)
[2024-01-08] MEDS: diphenoxylate/atropine Tablet 2 TAB PO (14:37)
[2024-01-08 15:00] LABS: Albumin Level 3.9 g/dL (3.5-5.2); Blood Urea Nitrogen 23 mg/dL (8-23); Carbon Dioxide 24 mmol/L (22-29); Creatinine Clr Calc Pharmacy 57.1327; Globulin 3.2 g/dL (1.3-4.6); Lipase 53 U/L (13-60); Total Bilirubin 0.7 mg/dL (0.15-1.2); Total Protein 7.1 g/dL (6.6-8.7)
[2024-01-08 15:10] LABS: Alanine Aminotransferase 51 U/L (0-33); Alkaline Phosphatase 154 U/L (35-105); Aspartate Amino Transferase 45 U/L (0-32); Calcium 8.3 mg/dL (8.5-10.5); Chloride 80 mmol/L (98-107); Osmolality Calculated 308 mOsm/kg (285-295); Sodium 120 mmol/L (136-145)
[2024-01-08 15:12] LABS: Glucose 1083 mg/dL (65-115)
[2024-01-08 15:23] LABS: Ketone (Acetest) Serum Negative (Negative)
[2024-01-08 15:39] LABS: Base Excess VBG 2.9 mmol/L (-3.0-3.0); Blood Gas Operator Identificat AMH; Blood Gas Sample Site Not specified; Blood Gas Sample Type Venous; HCO3 VBG 28.8 mmol/L (24-28); Oxygen Device NC; PCO2 VBG 47.5 mmHg (41-51); PO2 VBG 65.1 mmHg (25-40); Venous Blood Gas Hematocrit 48.4 % (37-47); pH VBG 7.39 (7.32-7.42)
[2024-01-08] MEDS: insulin regular-human 100 units/1 mL 14 UNIT IVP (16:01)
--- NOTE | 2024-01-08 16:22 | P.HP_ITS ---
Providers/Chief Complaint 2 Primary Care Provider: Gustavo Thompson MD Chief Complaint: Dehydrated, memory loss, dry private part History of Present Illness Ximena Montero is a 68 year old female with history of diabetes, [id number], COPD, uses 5 L of oxygen at baseline, chronic hypoxia, quit smoking, gout presented with chief complaint recurrent nausea vomiting Patient is stating that he was put on metformin a month ago but she started having worsening of her symptoms with diarrhea so she stopped taking it 3 days ago, she has been on a long steroid taper for her gout she is supposed to take 10 mg of prednisone tomorrow he has already taken today's dose, then after tomorrow she is supposed to take 5 mg of prednisone for next 5 days and then stop she is also supposed to take allopurinol 400 mg, she uses 5 L of oxygen baseline along nebulizers. She does not use CPAP or BiPAP at home. Patient has been experiencing nausea vomiting diarrhea for last 3 days. She does not use insulin, she is not on any antihyperglycemic agent, she was only on metformin. Patient does not want to use glyburide. In the ER she has HHS, ketones negative, I have requested CT abdomen pelvis Patient was on spironolactone and NSAIDs Patient is endorsing polydipsia polyuria Review of Systems 2 Eyes: Denies: change in vision ENMT: Denies: throat pain Card: Denies: chest pain Resp: Denies: dyspnea GI: Reports: nausea and vomiting : Denies: flank pain Musc: Denies: neck pain Skin/Breast: Denies: rash Medications/Allergies Home Medications Medication Instructions Recorded Confirmed Last Taken Type albuterol sulfate 90 mcg/actuation 2 puff inhalation Q6H PRN 02/02/20 11/05/23 Unknown History aerosol inhaler (ProAir HFA) Shortness Of Breath Nebulizer tubing #1 ea 02/12/22 06/20/23 Unknown Rx azithromycin 250 mg tablet See Rx Instructions PO .COMPLEX 01/27/23 11/05/23 Unknown Rx #36 tabs clotrimazole-betamethasone 1 1 applic topical BID #15 grams 04/16/23 06/20/23 Unknown Rx %-0.05 % topical cream Wheelchair cushion for bed ulcer #1 ea 05/01/23 06/20/23 Unknown Rx cetirizine 10 mg tablet (Allergy 10 mg PO DAILY 05/11/23 11/05/23 Unknown History Relief (cetirizine)) ipratropium 0.5 mg-albuterol 3 mg 3 ml inhalation Q4H PRN Shortness 05/11/23 11/05/23 Unknown History (2.5 mg base)/3 mL nebulization Of Breath soln budesonide 1 mg/2 mL suspension 1 mg (2 mL) inhalation DAILY #180 05/23/23 11/05/23 Unknown Rx for nebulization mL fluconazole 150 mg tablet 150 mg PO DAILY PRN unknown #7 tabs 05/23/23 06/20/23 Unknown Rx potassium chloride 10 mEq 20 meq PO DAILY 06/26/23 11/05/23 Unknown History tablet,extended release furosemide 40 mg tablet 100 mg (2.5 x 40 mg) PO BID edema 07/16/23 11/05/23 Unknown Rx #150 tabs spironolactone 25 mg tablet See Rx Instructions .Route 09/15/23 11/05/23 Unknown Rx .COMPLEX #90 tabs allopurinol 100 mg tablet 100 mg PO DAILY #90 tabs 10/01/23 11/05/23 Unknown Rx famotidine 20 mg tablet 20 mg PO BID 11/05/23 11/05/23 Unknown History cholecalciferol (vitamin D3) 50 50 mcg PO DAILY #30 caps 11/20/23 Unknown Rx mcg (2,000 unit) capsule diclofenac potassium 50 mg tablet See Rx Instructions .Route 11/20/23 Unknown Rx .COMPLEX #60 tabs glyburide 2.5 mg tablet 2.5 mg PO DAILY #30 tabs 01/05/24 Unknown Rx Allergies Allergy/AdvReac Type Severity Reaction Status Date / Time procaine [From Novocain] Allergy Intermediate Unknown Verified 01/08/24 14:00 tramadol [From Ultram] Allergy Intermediate Unknown Verified 01/08/24 14:00 PFSH Acute 2 PFSH: Medical History Gout DVT (deep venous thrombosis) Cellulitis of foot excluding toe Polycythemia Chronic respiratory failure with hypoxia Thyroid nodule Ulnar nerve disease Lung nodule Aneurysm Chronic obstructive pulmonary disease Surgical History History of decompression of ulnar nerve History of arthroscopy of both shoulders Hx of tonsillectomy S/P excision of vocal cord nodule History of cholecystectomy H/O shoulder surgery History of carpal tunnel surgery H/O knee surgery History of hysterectomy H/O exploratory laparotomy H/O left wrist surgery Family History Other CAD (coronary artery disease) Cancer Diabetes Social History Smoking and tobacco/nicotine status: current every day tobacco/nicotine user cigarettes Packs smoked per day: 1.5 Years cigarettes smoked: 46 [ Other cigarette details: No smoking since April 2023 other than 1 cigarette.] Quit status (tobacco/nicotine): has tried quititng Number of times tried to quit tobacco: 20 Second hand smoke exposure: Yes Alcohol intake: never Substance/Drug Use: never Lives independently: Yes Household members: family Marital status: Current occupational status: disabled Do you think of yourself as: Straight/Heterosexual Current gender identity: Female Vitals/I&O/Wt Last Vital Signs Temp 98.3 F 01/08/24 13:53 Pulse 112 H 01/08/24 13:53 Resp 18 01/08/24 13:53 Pulse Ox 85 L 01/08/24 13:53 O2 Del Method Nasal Cannula 01/08/24 13:53 O2 Flow Rate 5 01/08/24 13:53 01/08/24 01/08/24 01/08/24 06:59 14:59 22:59 Intake Total 1000 / 1000 Balance 1000 / 1000 Weight last 48 hrs Weight 95.254 kg Physical Exam 2 Narrative: Morbid obese female Sitting at the bedside Currently on 5 L Hemodynamic stable Nontender abdomen Lower extremity no edema Pleasant cooperative S1, S2 Awake and alert GCS 15 Nonfocal neuroexam Data 01/08/24 14:28 01/08/24 14:28 A&P Assessment and plan (1) Hyperosmolar hyperglycemic state (HHS): (2) Hyponatremia: (3) Gastritis: (4) Gout: (5) Steroid long-term use: Plan HHS Start insulin drip Check BMP every 4 hours Instructions written stop insulin if potassium below 3.5, start D5 half-normal saline with potassium supplement once blood sugar below 200 Patient to remain n.p.o. until her anion gap improved Check hemoglobin A1c No cyclical vomiting diabetic gastroparesis less likely Most likely this is combination of use of steroids and stopping metformin She will need a new antihyperglycemic agent at discharge Polyuria secondary to hyperglycemia Afebrile No leukocytosis Gout: Patient is supposed to increase her allopurinol up to 400 mg and she is still on prednisone taper she is supposed to take 10 mg tomorrow and then 5 mg for next 5 days I will start her consistent diet once anion gap closes Admit to ICU Start IV fluids along insulin drip Requested CT abdomen pelvis Lower extremity edema: Minimal hold Lasix for now Monitor for any signs of worsening Patient seems to have history of diastolic CHF Chronic hypoxia uses 5 L at baseline No acute exacerbation Patient has quit smoking. Attestations 2 Medical Necessity Statement*: Anticipating admission to the ICU with more than 2 midnights for management of HHS Diagnoses Hyperosmolar hyperglycemic state (HHS) E11.00 Hyponatremia E87.1 Gastritis K29.70 Gout M10.9 Steroid long-term use
[2024-01-08] MEDS: INSULIN REGULAR IN 0.9 % NACL 100 UNIT/100 ML BAG 9.5 UNIT IV (16:25)
[2024-01-08 16:30] LABS: Erythrocyte Sedimentation Rate 43 mm/hr (0-15)
--- NOTE | 2024-01-08 16:38 | CTR_ITS ---
PROCEDURE INFORMATION: Exam: CT Abdomen And Pelvis With Contrast Exam date and time: 01/08/2024 6:17 PM Age: 68 years old Clinical indication: Other: Diarrhea TECHNIQUE: Imaging protocol: Computed tomography of the abdomen and pelvis with contrast. Radiation optimization: All CT scans at this facility use at least one of these dose optimization techniques: automated exposure control; mA and/or kV adjustment per patient size (includes targeted exams where dose is matched to clinical indication); or iterative reconstruction. Contrast material: OMNI 350; Contrast volume: 92 ml; Contrast route: INTRAVENOUS (IV); COMPARISON: CR XR KUB [id number] 09/09/2017 12:46 PM RADIATION DOSE METRICS: Total DLP (mGy-cm): 1025 FINDINGS: Lungs: 1 cm circumscribed pulmonary nodule right lung base, indeterminate. Diaphragm: Small hiatal hernia. Liver: Liver is enlarged with diffuse fatty infiltration. No masses detected. Gallbladder and biliary ducts: Gallbladder has been removed. Bile ducts are not appreciably dilated. Pancreas: Unremarkable. Main pancreatic duct is not significantly dilated. Spleen: Normal. No splenomegaly. Adrenal glands: Normal. No mass. Kidneys and ureters: Kidneys are unremarkable. No calculi or hydronephrosis detected. Stomach and bowel: Unremarkable. No obstruction. No mucosal thickening. Appendix: No evidence of appendicitis. Intraperitoneal space: Unremarkable. No free air. No significant fluid collection. Vasculature: Scattered atherosclerotic changes of the abdominal aorta and iliac vessels. No aortic aneurysm. Lymph nodes: Unremarkable. No enlarged lymph nodes. Urinary bladder: Unremarkable as visualized. Reproductive: Uterus has been removed. Bones/joints: Old healed fractures right lower ribcage. Chronic grade 1 isthmic spondylolisthesis L5-S1 with secondary degenerative changes. 2 cm circumscribed bone lesion L1 vertebral body likely representing a benign hemangioma. No acute bony abnormalities. Soft tissues: Unremarkable. CT/CT abdomen pelvis w con* [id number] IMPRESSION: 1. No acute findings within the abdomen or pelvis. 2. Hepatomegaly with diffuse fatty infiltration. 3. 1 cm pulmonary nodule right lung base. Recommend either repeat CT chest in [address] PET scan but this time for further evaluation. 4. Additional nonemergent findings as above.
[2024-01-08 16:51] LABS: C Reactive Protein 20.3 mg/L (0.0-4.9)
[2024-01-08 16:57] LABS: Procalcitonin 0.25 ng/mL (0-0.5)
[2024-01-08] MEDS: ipratropium-albuterol 3 mL Neb INHALATION ×2 (17:08→22:04)
[2024-01-08 17:15] LABS: NT Pro B Type Natriuretic Pept 101 pg/mL (0-125)
[2024-01-08] MEDS: iohexol 350 mg/mL 500 mL Btl (per mL) IV (18:25)
--- NOTE | 2024-01-08 19:02 | PC.NURSE ---
from er on [facility] ct not done at this time taken back to ct with er crew before transfer to bed .pt not happy refusing to be stuck for new iv while on ct table unable to lay down i dont breath right , then proceed to demand food has not ate since noon, related had stopped taking metformin 3 days ago because it gave her diarrhea not monitor blood sugar 'only came to this hospital because i was dehydrated
--- NOTE | 2024-01-08 19:15 | PC.NURSE ---
Pain: Pt states pain 10/10 in her legs is from muscle cramps.
--- NOTE | 2024-01-08 19:15 | PC.NURSE ---
SCDs: Refusing SCDs- pt states, that wont work for me . Pt is resistant to education.
[2024-01-08 19:23] LABS: Anion Gap 20.7 (5-19); Blood Urea Nitrogen 21 mg/dL (8-23); Calcium 8.5 mg/dL (8.5-10.5); Carbon Dioxide 24 mmol/L (22-29); Chloride 88 mmol/L (98-107); Creatinine Clr Calc Pharmacy 54.8813; Glucose 251 mg/dL (65-115); Osmolality Calculated 279 mOsm/kg (285-295); Potassium 3.7 mmol/L (3.5-5.1); Sodium 129 mmol/L (136-145)
[2024-01-08 19:40] LABS: Vitamin B12 1870 pg/mL (232-1245)
--- NOTE | 2024-01-08 19:54 | PC.NURSE ---
Addendum entered by Nanci Brock RN 01/08/24 19:56: Error on previous note: *Order for 20 MEQ PO Potassium not 40 MeQ Original Note: Physicain Communication: Notified Dr. Miller of BMP results and request for nicotine patch and cough drops. New order for D5 1/2 NS with 40 KCL @100ml/hr, 40 MeQ PO Potassium ONCE NOW, 7mg Nicotine patch, and Tesslon Pearls. Dr. Miller made aware of allergy flag on tesslon, order to continue with order.
[2024-01-08] MEDS: dextrose 5%-ns 0.45% + KCl 40 1,000 ML 100 MEQ IV (20:02)
[2024-01-08] MEDS: benzonatate 100 mg Capsule PO (20:25)
[2024-01-08] MEDS: potassium chloride ER 10 mEq Tablet 20 MEQ PO (20:25)
[2024-01-08] MEDS: nicotine 7 mg Patch 1 PATCH TRANSDERMA (20:27)
[2024-01-08 22:48] LABS: Anion Gap 18.1 (5-19); Blood Urea Nitrogen 19 mg/dL (8-23); Calcium 8.3 mg/dL (8.5-10.5); Carbon Dioxide 25 mmol/L (22-29); Chloride 90 mmol/L (98-107); Creatinine Clr Calc Pharmacy 68.6016; Glomerular Filtration Rate 71.1 mL/min (90-130); Glucose 226 mg/dL (65-115); Osmolality Calculated 277 mOsm/kg (285-295); Potassium 4.1 mmol/L (3.5-5.1); Sodium 129 mmol/L (136-145)
[2024-01-08 23:04] LABS: Estmated Average Glucose 338; Hemoglobin A1C 13.4 % (4.0-6.0)
--- NOTE | 2024-01-08 23:11 | PC.NURSE ---
Physician Communication: Dr. Miller called unit to discuss BMP results. New order to start CC diet now, give Lantus 10 units SubQ ONCE NOW, Medium-Dose Sliding Scale Insulin TIDWM, and to discontinue the Insulin drip and IV Fluids in two hours (0100).
[2024-01-08] MEDS: insulin glargine 100 units/1 mL 10 UNIT SUBCUT (23:39)
[2024-01-09] VITALS (23 sets, daily range): BP systolic 103–136; BP diastolic 55–82; PULSE 77–116; RESP 12–29; TEMP 36.4–37.1; O2SAT 5–93
--- NOTE | 2024-01-09 01:59 | PC.NURSE ---
Restart Insulin Drip: Notified Dr. Ty of elevated BG (436), new order to restart insulin drip, NPO status, and notify provider when AG reaches 13.
[2024-01-09] MEDS: INSULIN REGULAR IN 0.9 % NACL 100 UNIT/100 ML BAG IV (02:05)
--- NOTE | 2024-01-09 02:14 | PC.NURSE ---
Addendum entered by Nanci Brock RN 01/09/24 07:01: [id number] [phone] Addendum entered by Nanci Brock RN 01/09/24 05:37: 01/08: [id number] [phone] Addendum entered by Nanci Brock RN 01/09/24 03:06: 01/08: [id number] Original Note: ACCU-Checks: Results not syncing to chart at this time, results are as follows 01/07: 1999- 2101- [id number]- 230 [id number] [id number] [phone] 01/08: 0056- 435 0155- 610
[2024-01-09 04:13] LABS: Basophils # 0.1 10^3/uL (0.0-0.1); Basophils % 0.4 %; Eosinophils # 0.2 10^3/uL (0.0-0.8); Eosinophils % 1.9 %; Lymphocytes # 3.4 10^3/uL (0.8-4.8); Lymphocytes % 29.5 %; Mean Corpuscular HGB Conc 32.9 g/dL (30-55); Mean Corpuscular Hemoglobin 31.2 pg (27-33); Mean Platelet Volume 10.6 fL (7.4-10.4); Monocytes # 0.6 10^3/uL (0.2-0.9); Monocytes % 5.4 %; Neutrophils # 7.17 10^3/uL (1.8-7.7); Neutrophils % 61.7 %; Nucleated Red Blood Cells % 0 %; Platelet Count 151 10^3/cmm (157-399); Red Blood Count 4.42 10^6/uL (3.85-5.65); Red Cell Distribution Width 14.8 % (12.1-15.1); White Blood Count 11.63 10^3/uL (3.29-11.43)
[2024-01-09 04:50] LABS: Anion Gap 15.2 (5-19); Carbon Dioxide 29 mmol/L (22-29); Chloride 92 mmol/L (98-107); Potassium 4.2 mmol/L (3.5-5.1); Sodium 132 mmol/L (136-145)
[2024-01-09 04:51] LABS: Blood Urea Nitrogen 19 mg/dL (8-23); Calcium 8.3 mg/dL (8.5-10.5); Creatinine Clr Calc Pharmacy 54.8813; Glucose 329 mg/dL (65-115); Magnesium 2.3 mg/dL (1.7-2.3); Osmolality Calculated 289 mOsm/kg (285-295); Phosphorus 2.2 mg/dL (2.5-4.5)
[2024-01-09] MEDS: dextrose 5%-ns + KCl 20 20 MEQ/1,000 ML BAG 125 MEQ IV (05:26)
--- NOTE | 2024-01-09 06:01 | PC.NURSE ---
Daily Weight: Unable to weigh pt at this time, up to chair.
[2024-01-09] MEDS: ipratropium-albuterol 3 mL Neb INHALATION (07:47)
--- NOTE | 2024-01-09 08:20 | PC.NURSE ---
Blood Glucose 224. Pt expresses displeasure of frequent accu checks. Dr Miller rounded with pt and informed her of plans for DC with insulin injections. Pt adamant against insulin injections or blood glucose monitoring. Asked pt her reasoning. Expressed fear of needles and inability to perform injection on herself. Encouraged pt of small needle size and SQ areas with less tenderness. Encouraged pt that this nurse would provide education and allow her to practice on herself before DC. Pt refuses. Remains adamant against injections and wishes to be transferred to [place] where her physician, Dr Carrasco, will treat with oral meds. Dr Miller present during conversation.
--- NOTE | 2024-01-09 09:00 | PC.NURSE ---
BG 228 @ 0976.
--- NOTE | 2024-01-09 09:07 | PC.PHAR ---
PT HAS NEW GLYBURIDE 2.5 MG DAILY. SHE IS NOT TAKING IT CURRENTLY.
--- NOTE | 2024-01-09 09:22 | P.DS_ITS ---
Discharge Providers Date of Admission: 01/08/24 17:09 Date of Discharge: January 09, 2024 Attending Provider at Admission: Kari Miller MD Attending Provider at Discharge: Kari Miller MD Primary Care Provider: Gustavo Thompson MD Diagnoses at Discharge Discharge Diagnosis (1) Hyperosmolar hyperglycemic state (HHS): Status: Acute (2) Hyponatremia: Status: Acute (3) Gastritis: Status: Acute (4) Gout: Status: Acute (5) Steroid long-term use: Status: Acute Reason for Visit Reason for Visit: Dehydrated, memory loss, dry private part Hospital Course Hospital Course 68 YO female with poorly controlled diabets and came in after stopping her recently started metformin and glyburide while on prenisone taper( for gout), she was diagnosed with HHS Insulin gtt was started, she was allowed to eat once AG closed, Hg A1c is 13. She adamantly refused insulin. 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 Daughter has been trying to convince her but she knows that her mom would never say Yes to injectables ( even once a week option) Pt has capacity to make decisions and I cannot convince her enough to take insulin. She knows that she might not get steroid next time for Gout and still can come back with DKA Physical Exam Narrative: Awake '\ NIH 0 GCS 15 S1 S2 Abd soft Discharge Data Studies Completed and Pending Completed Studies During Hospitalization Category Date Time Status CT abdomen pelvis w con* [id number] Stat Cat Scan 01/08/24 16:38 Completed XR chest 1V portable [id number] Stat Exams 01/08/24 14:18 Completed Pending at discharge Category Date Time Status Blood Culture Stat Lab 01/08/24 16:39 Results C.Diff PCR (Lab) Routine Lab 01/08/24 14:18 Ordered Immunochemical Fecal OCB Routine Lab 01/08/24 14:18 Ordered Lactoferrin Routine Lab 01/08/24 14:18 Ordered OVA and Parasites, Conc and PE Routine Lab 01/08/24 14:18 Ordered Salmonella / Shigella / Campy Routine Lab 01/08/24 14:18 Ordered Radiology Impressions Chest X-Ray 01/08/24 14:18 IMPRESSION: No acute findings. ADDENDUM: 01/08/24 1503 Addendum: 1.1 cm right basilar nodular density is similar to couple prior exams, likely summation artifact. Abdomen/Pelvis CT 01/08/24 16:38 IMPRESSION: 1. No acute findings within the abdomen or pelvis. 2. Hepatomegaly with diffuse fatty infiltration. 3. 1 cm pulmonary nodule right lung base. Recommend either repeat CT chest in [address] PET scan but this time for further evaluation. 4. Additional nonemergent findings as above. Laboratory Results WBC 11.63 10^3/uL (3.29-11.43) H 01/09/24 03:59 RBC 4.42 10^6/uL (3.85-5.65) 01/09/24 03:59 Hgb 13.80 g/dL (11.27-16.99) 01/09/24 03:59 Hct 42.0 % (36-47) 01/09/24 03:59 MCV 95.0 fl (85-98) 01/09/24 03:59 MCH 31.2 pg (27-33) 01/09/24 03:59 MCHC 32.9 g/dL (30-55) 01/09/24 03:59 RDW 14.8 % (12.1-15.1) 01/09/24 03:59 Plt Count 151 10^3/cmm (157-399) L 01/09/24 03:59 MPV 10.6 fL (7.4-10.4) H 01/09/24 03:59 Neut % (Auto) 61.7 % 01/09/24 03:59 Lymph % (Auto) 29.5 % 01/09/24 03:59 Stewart % (Auto) 5.4 % 01/09/24 03:59 Eos % (Auto) 1.9 % 01/09/24 03:59 Baso % (Auto) 0.4 % 01/09/24 03:59 Neut # (Auto) 7.17 10^3/uL (1.8-7.7) 01/09/24 03:59 Lymph # (Auto) 3.4 10^3/uL (0.8-4.8) 01/09/24 03:59 Stewart # (Auto) 0.6 10^3/uL (0.2-0.9) 01/09/24 03:59 Eos # (Auto) 0.2 10^3/uL (0.0-0.8) 01/09/24 03:59 Baso # (Auto) 0.1 10^3/uL (0.0-0.1) 01/09/24 03:59 Nucleated RBC % (auto) 0 % 01/09/24 03:59 Nucleated RBCs # 0.0 /100WBC 01/09/24 03:59 ESR 43 mm/hr (0-15) H 01/08/24 14:28 Specimen Type Venous 01/08/24 15:28 Sample Site Not specified 01/08/24 15:28 ABG pH Cancelled 01/08/24 15:28 ABG pCO2 Cancelled 01/08/24 15:28 ABG pO2 Cancelled 01/08/24 15:28 ABG PO2/FiO2 Ratio Cancelled 01/08/24 15:28 ABG HCO3 Cancelled 01/08/24 15:28 ABG Base Excess Cancelled 01/08/24 15:28 Chester Test N/a 01/08/24 15:28 VBG pH 7.39 (7.32-7.42) 01/08/24 15:28 VBG pCO2 47.5 mmHg (41-51) 01/08/24 15:28 VBG pO2 65.1 mmHg (25-40) H 01/08/24 15:28 VBG HCO3 28.8 mmol/L (24-28) H 01/08/24 15:28 VBG Base Excess 2.9 mmol/L (-3.0-3.0) 01/08/24 15:28 VBG Hematocrit 48.4 % (37-47) H 01/08/24 15:28 Hematocrit Cancelled 01/08/24 15:28 O2 Delivery Device Nc 01/08/24 15:28 Crushing Mill Operator ID Amh 01/08/24 15:28 Sodium 132 mmol/L (136-145) L 01/09/24 03:59 Potassium 4.2 mmol/L (3.5-5.1) 01/09/24 03:59 Chloride 92 mmol/L (98-107) L 01/09/24 03:59 Carbon Dioxide 29 mmol/L (22-29) 01/09/24 03:59 Anion Gap 15.2 (5-19) 01/09/24 03:59 BUN 19 mg/dL (8-23) 01/09/24 03:59 Creatinine 1.0 mg/dL (0.5-0.9) H 01/09/24 03:59 GFR Calculation 55.0 mL/min (90-130) L 01/09/24 03:59 Glucose 329 mg/dL (65-115) H 01/09/24 03:59 Estimat Average Glucose 338 01/08/24 14:28 Hemoglobin A1c 13.4 % (4.0-6.0) H 01/08/24 14:28 Calculated Osmolality 289 mOsm/kg (285-295) 01/09/24 03:59 Calcium 8.3 mg/dL (8.5-10.5) L 01/09/24 03:59 Phosphorus 2.2 mg/dL (2.5-4.5) L 01/09/24 03:59 Magnesium 2.3 mg/dL (1.7-2.3) 01/09/24 03:59 Total Bilirubin 0.7 mg/dL (0.15-1.2) 01/08/24 14:28 AST 45 U/L (0-32) H 01/08/24 14:28 ALT 51 U/L (0-33) H 01/08/24 14:28 Alkaline Phosphatase 154 U/L (35-105) H 01/08/24 14:28 C-Reactive Protein 20.3 mg/L (0.0-4.9) H 01/08/24 14:28 NT-Pro-B Natriuret Pep 101 pg/mL (0-125) 01/08/24 15:39 Total Protein 7.1 g/dL (6.6-8.7) 01/08/24 14:28 Albumin 3.9 g/dL (3.5-5.2) 01/08/24 14:28 Globulin 3.2 g/dL (1.3-4.6) 01/08/24 14:28 Lipase 53 U/L (13-60) 01/08/24 14:28 Vitamin B12 1870 pg/mL (232-1245) H 01/08/24 18:50 Procalcitonin 0.25 ng/mL (0-0.5) 01/08/24 14:28 Serum Ketones Negative (Negative) 01/08/24 14:28 Vitals Last Vital Signs Temp 97.6 F 01/09/24 05:00 Pulse 79 01/09/24 07:52 Resp 16 01/09/24 07:45 BP 103/59 01/09/24 06:00 Pulse Ox 90 01/09/24 07:45 O2 Del Method Nasal Cannula 01/09/24 07:45 O2 Flow Rate 6 01/09/24 07:45 Discharge Plan Discharge Patient Disposition: Home Condition: Stable Prescriptions: New (DME) lancets [Accu-Chek Fastclix Lancet Drum] Misc See Rx Instructions .Route Qty: 100 0RF Rx Instructions: As directed (DME) Accu-Chek Leslee Plus test strp Strip See Rx Instructions .Route Qty: 100 0RF Rx Instructions: As directed (DME) blood-glucose meter [Accu-Chek Guide Me Glucose Mtr] [facility] See Rx Instructions .Route Qty: 1 0RF Rx Instructions: As directed Januvia 100 mg tablet 100 mg PO DAILY Qty: 90 4RF Jardiance 25 mg tablet 25 mg PO DAILY Qty: 60 3RF insulin glargine [Lantus Solostar U-100 Insulin] 100 unit/mL (3 mL) insulin pen 15 unit SUBCUT QPM Qty: 15 0RF Continued (DME) Nebulizer tubing See Rx Instructions .Route .MEDSUPPLY Qty: 1 0RF Rx Instructions: As directed (DME) Wheelchair cushion for bed ulcer See Rx Instructions .Route .MEDSUPPLY Qty: 1 2RF Rx Instructions: Place on any seat or chair to treat ulcerations famotidine 20 mg tablet 20 mg PO BID azithromycin 250 mg tablet See Rx Instructions PO .COMPLEX Qty: 36 3RF Rx Instructions: Take 1 tab po on Mon, Fri and Friday clotrimazole-betamethasone 1-0.05 % cream 1 applic topical BID Qty: 15 3RF potassium chloride 10 mEq tablet extended release 20 meq PO DAILY cholecalciferol (vitamin D3) 50 mcg (2,000 unit) capsule 50 mcg PO DAILY Qty: 30 6RF diclofenac potassium 50 mg tablet See Rx Instructions .ROUTE .COMPLEX Qty: 60 3RF Dose Instruction: TAKE 1 TABLET BY MOUTH TWICE A DAY Rx Instructions: TAKE 1 TABLET BY MOUTH TWICE A DAY ipratropium-albuterol 0.5 mg-3 mg(2.5 mg base)/3 mL solution for nebulization 3 ml inhalation Q4H PRN (Reason: Shortness Of Breath) cetirizine [Allergy Relief (cetirizine)] 10 mg tablet 20 mg PO DAILY prednisone 10 mg tablet See Rx Instructions .ROUTE .COMPLEX Rx Instructions: TAKE 4 TABS PER DAY FOR 3 DAYS, THEN 3 TABLETS PER DAY FOR 3 DAYS (THEN RESTART CURRENT TAPER) allopurinol 300 mg tablet 300 mg PO DAILY Ventolin HFA 90 mcg/actuation HFA aerosol inhaler 2 puff INHALATION Q6H PRN (Reason: Shortness Of Breath) Changed furosemide 40 mg tablet 40 mg PO DAILY Qty: 150 6RF Discontinued spironolactone 25 mg tablet See Rx Instructions .ROUTE .COMPLEX Qty: 90 3RF Dose Instruction: TAKE 1 TABLET BY MOUTH EVERY DAY Rx Instructions: TAKE 1 TABLET BY MOUTH EVERY DAY glyburide 2.5 mg tablet 2.5 mg PO DAILY Qty: 30 3RF Discharge Orders: Discharge Order (Routine); Ordered 01/09/24 Ordered By: Kari Miller Referrals: Sandee Lynne MD [Physician] - 1-3 days Gustavo Thompson MD [Primary Care Provider] - 1 week Discharge Diet: Diabetic Patient Instructions: Diabetic Gastroparesis (DC), Diabetic Ketoacidosis (DC), Type 1 Diabetes in Adults: New Diagnosis (DC), COPD (Chronic Obstructive Pulmonary Disease) (DC), Meal Planning with Diabetes Exchanges (DC), Diabetic Hyperglycemia (DC), COPD Stoplight, Opioid Safety Discharge Attestations Time Spent in Discharge Care*: greater than 30 min Quality Metrics Clinical Quality Measures [ No reported AMI, CVA or VTE this stay] Coding Level of Care Code Acute Code for Chg Fwd Diagnoses Hyperosmolar hyperglycemic state (HHS) E11.00 Hyponatremia E87.1 Gastritis K29.70 Gout M10.9 Steroid long-term use
[2024-01-09] MEDS: predniSONE 10 mg Tablet PO (09:28)
[2024-01-09] MEDS: famotidine 20 mg Tablet PO (10:18)
[2024-01-09] MEDS: nicotine 7 mg Patch 1 PATCH TRANSDERMA (10:18)
--- NOTE | 2024-01-09 16:00 | PC.NURSE ---
Pt refused to fill Lantus pen, glucometer, lancets or test strips prescriptions. Encouraged pt that she was capable of learning and I was willing to help her learn. Pt persistent in refusal. Meds on hold in [facility].
--- NOTE | 2024-01-09 20:00 | PC.NURSE ---
Pt called ICU and stated she spoke with a family friend that convinced her to monitor blood glucose levels. [facility] in house pharmacy closed tomorrow. Prescriptions called into [facility] in [facility]'s automated voicemail. Notified pt of prescription's location. Encouraged pt to call pharmacy at [phone] to ensure meds will be filled and to fruit or nut picker prior to closing at noon. Phone number provided. Pt indicated understanding.
== END 2024-01-09 14:45 | disposition home or self-care (01) | DRG 638 ==
LOC: ER 16:29 → ICU 17:10
PROVIDERS: Family Medicine; Admitting Provider Internal Medicine; Emergency Provider Emergency Medicine; PCP Family Medicine; Visit Provider Internal Medicine
DX: E11.00 Type 2 diabetes mellitus with hyperosmolarity without nonketotic hyperglycemic-hyperosmolar coma (NKHHC) (principal); E87.1 Hypo-osmolality and hyponatremia; J96.11 Chronic respiratory failure with hypoxia; M10.9 Gout, unspecified; Z79.52 Long term (current) use of systemic steroids; R60.0 Localized edema; Z99.81 Dependence on supplemental oxygen; E11.65 Type 2 diabetes mellitus with hyperglycemia; Z87.891 Personal history of nicotine dependence; J44.9 Chronic obstructive pulmonary disease, unspecified
CPT/HCPCS: 36415; 71045; 74177; 80048; 80053; 82009; 82607; 82803; 83036; 83690; 83735; 83880; 84100; 84145; 85025; 85651; 86140; 87040; 94640; 96365; 96366; 96367; 96372; 99285; J1815; J2405; J7030; J7512; Q9967

== ENCOUNTER 2024-01-26 09:45 | Outpatient (CLI) | payer MEDICARE, OTHER, SELFPAY ==
[2024-01-26 10:34] LABS: Alanine Aminotransferase 42 U/L (0-33); Uric Acid 4.8 mg/dL (2.4-5.7)
== END 2024-01-26 09:46 | disposition home or self-care (01) ==
LOC: LAB 09:47
PROVIDERS: PCP Family Medicine; Visit Provider Internal Medicine
DX: E11.9 Type 2 diabetes mellitus without complications (principal); I21.4 Non-ST elevation (NSTEMI) myocardial infarction; I25.10 Atherosclerotic heart disease of native coronary artery without angina pectoris; E78.2 Mixed hyperlipidemia; R21 Rash and other nonspecific skin eruption; Z79.84 Long term (current) use of oral hypoglycemic drugs
CPT/HCPCS: 36415; 84460; 84550; 99205

== ENCOUNTER → 2024-02-10 13:56 | Outpatient (BNVA) | payer MEDICARE, OTHER, SELFPAY | PROVIDERS: PCP Family Medicine; Visit Provider Podiatrist Foot & Ankle Surgery | DX: L60.3 Nail dystrophy (principal); E11.69 Type 2 diabetes mellitus with other specified complication; Z79.4 Long term (current) use of insulin | CPT/HCPCS: 11721; 99203 ==

== ENCOUNTER 2024-02-27 14:41 | Outpatient (CLI) | payer MEDICARE, OTHER, SELFPAY ==
[2024-02-27 15:51] LABS: Alanine Aminotransferase 39 U/L (0-33); Uric Acid 8.5 mg/dL (2.4-5.7)
== END 2024-02-27 14:42 | disposition home or self-care (01) ==
LOC: LAB 14:44
PROVIDERS: PCP Family Medicine; Visit Provider Internal Medicine
DX: Z79.899 Other long term (current) drug therapy (principal)
CPT/HCPCS: 36415; 84460; 84550

== ENCOUNTER 2024-03-31 14:30 | Outpatient (CLI) | payer MEDICARE, OTHER, MEDICAID, SELFPAY ==
[2024-03-31 15:14] LABS: Uric Acid 5.4 mg/dL (2.4-5.7)
== END 2024-03-31 14:31 | disposition home or self-care (01) ==
LOC: LAB 14:34
PROVIDERS: PCP Family Medicine; Visit Provider Internal Medicine
DX: E79.0 Hyperuricemia without signs of inflammatory arthritis and tophaceous disease (principal)
CPT/HCPCS: 84550

== ENCOUNTER → 2024-04-13 13:48 | Outpatient (BNVA) | payer MEDICARE, OTHER, MEDICAID, SELFPAY | PROVIDERS: PCP Family Medicine; Visit Provider Podiatrist Foot & Ankle Surgery | DX: L60.3 Nail dystrophy (principal); E11.69 Type 2 diabetes mellitus with other specified complication; Z79.4 Long term (current) use of insulin | CPT/HCPCS: 11721 ==

== ENCOUNTER → 2024-05-04 13:41 | Outpatient (BNVA) | payer MEDICARE, OTHER, MEDICAID, SELFPAY | PROVIDERS: PCP Family Medicine; Referring Provider Family Medicine; Visit Provider Nurse Practitioner Family | DX: D48.5 Neoplasm of uncertain behavior of skin (principal); L91.8 Other hypertrophic disorders of the skin; L82.1 Other seborrheic keratosis; L85.3 Xerosis cutis; L57.8 Other skin changes due to chronic exposure to nonionizing radiation | CPT/HCPCS: 11102; 17110; 99203 ==

== ENCOUNTER 2024-05-06 15:26 | Outpatient (CLI) | payer MEDICARE, OTHER, MEDICAID, SELFPAY ==
[2024-05-06 16:58] LABS: Estmated Average Glucose 166; Hemoglobin A1C 7.4 % (4.0-6.0)
[2024-05-06 17:12] LABS: Alanine Aminotransferase 24 U/L (0-33); Albumin Level 4.1 g/dL (3.5-5.2); Alkaline Phosphatase 107 U/L (35-105); Anion Gap 17.3 (5-19); Aspartate Amino Transferase 29 U/L (0-32); Blood Urea Nitrogen 26 mg/dL (8-23); Calcium 8.9 mg/dL (8.5-10.5); Carbon Dioxide 30 mmol/L (22-29); Chloride 96 mmol/L (98-107); Chol HDL Ratio 2.98 mg/dL (0.0-4.40); Cholesterol 143 mg/dL (0-200); Globulin 2.8 g/dL (1.3-4.6); Glomerular Filtration Rate 44.5 mL/min (90-130); Glucose 182 mg/dL (65-115); HDL Cholesterol 48 mg/dL (60-100); LDL Cholesterol Calculated 56 mg/dL (50-129); LDL HDL Ratio 1.17 RATIO (0.00-3.22); Osmolality Calculated 297 mOsm/kg (285-295); Potassium 4.3 mmol/L (3.5-5.1); Sodium 139 mmol/L (136-145); Total Bilirubin 0.2 mg/dL (0.15-1.2); Total Protein 6.9 g/dL (6.6-8.7); Triglycerides 193 mg/dL (0-150)
[2024-05-06 17:47] LABS: Creatinine Urine, Random 40 mg/dL (28-217); Microalbum Creatinine Ratio Ur 25 mg/dL (0-20); Microalbumin Random Urine 1 ug/dL (0-20)
== END 2024-05-06 15:27 | disposition home or self-care (01) ==
LOC: LAB 15:28
PROVIDERS: PCP Family Medicine; Visit Provider Internal Medicine
DX: E78.2 Mixed hyperlipidemia (principal); E11.9 Type 2 diabetes mellitus without complications; I21.4 Non-ST elevation (NSTEMI) myocardial infarction
CPT/HCPCS: 36415; 80053; 80061; 82044; 83036; 86337; 86341

== ENCOUNTER → 2024-05-14 11:52 | Outpatient (BNVA) | payer MEDICARE, OTHER, MEDICAID, SELFPAY | PROVIDERS: PCP Family Medicine; Visit Provider Internal Medicine | DX: R21 Rash and other nonspecific skin eruption (principal); B36.9 Superficial mycosis, unspecified; E11.9 Type 2 diabetes mellitus without complications; I21.4 Non-ST elevation (NSTEMI) myocardial infarction; I25.10 Atherosclerotic heart disease of native coronary artery without angina pectoris; E78.2 Mixed hyperlipidemia | CPT/HCPCS: 99215 ==

== ENCOUNTER 2024-07-20 14:40 | Outpatient (CLI) | payer MEDICARE, OTHER, MEDICAID, SELFPAY ==
[2024-07-20 15:22] LABS: Alanine Aminotransferase 24 U/L (0-33); Uric Acid 4.7 mg/dL (2.4-5.7)
== END 2024-07-20 14:41 | disposition home or self-care (01) ==
LOC: LAB 14:48
PROVIDERS: PCP Family Medicine; Visit Provider Internal Medicine
DX: Z79.899 Other long term (current) drug therapy (principal)
CPT/HCPCS: 36415; 84460; 84550

== ENCOUNTER 2024-08-05 14:44 | Outpatient (CLI) | payer MEDICARE, OTHER, MEDICAID, SELFPAY ==
[2024-08-05 15:52] LABS: Alanine Aminotransferase 23 U/L (0-33); Albumin Level 4.1 g/dL (3.5-5.2); Alkaline Phosphatase 102 U/L (35-105); Anion Gap 18.8 (5-19); Aspartate Amino Transferase 27 U/L (0-32); Blood Urea Nitrogen 25 mg/dL (8-23); Carbon Dioxide 28 mmol/L (22-29); Chloride 93 mmol/L (98-107); Chol HDL Ratio 3.31 mg/dL (0.0-4.40); Cholesterol 159 mg/dL (0-200); Globulin 4.2 g/dL (1.3-4.6); Glomerular Filtration Rate 40.6 mL/min (90-130); Glucose 139 mg/dL (65-115); HDL Cholesterol 48 mg/dL (60-100); LDL Cholesterol Calculated 76 mg/dL (50-129); LDL HDL Ratio 1.58 RATIO (0.00-3.22); Osmolality Calculated 289 mOsm/kg (285-295); Potassium 3.8 mmol/L (3.5-5.1); Sodium 136 mmol/L (136-145); Total Bilirubin 0.4 mg/dL (0.15-1.2); Total Protein 8.3 g/dL (6.6-8.7); Triglycerides 177 mg/dL (0-150)
[2024-08-05 15:54] LABS: Creatinine Urine, Random 42 mg/dL (28-217); Microalbum Creatinine Ratio Ur 24 mg/dL (0-20); Microalbumin Random Urine 1 ug/dL (0-20)
[2024-08-05 15:55] LABS: Estmated Average Glucose 163; Hemoglobin A1C 7.3 % (4.0-6.0)
== END 2024-08-05 14:45 | disposition home or self-care (01) ==
LOC: LAB 14:52
PROVIDERS: PCP Family Medicine; Visit Provider Internal Medicine
DX: E11.9 Type 2 diabetes mellitus without complications (principal); I21.4 Non-ST elevation (NSTEMI) myocardial infarction
CPT/HCPCS: 36415; 80053; 80061; 82044; 83036

== ENCOUNTER 2024-10-29 12:10 | Outpatient (CLI) | payer MEDICARE, OTHER, MEDICAID, SELFPAY ==
[2024-10-29 12:57] LABS: Basophils # 0.1 10^3/uL (0.0-0.1); Basophils % 0.5 %; Eosinophils # 0.3 10^3/uL (0.0-0.8); Eosinophils % 2.7 %; Hematocrit 47.3 % (36-47); Lymphocytes # 2.2 10^3/uL (0.8-4.8); Mean Corpuscular HGB Conc 31.9 g/dL (30-55); Mean Corpuscular Volume 93.8 fl (85-98); Mean Platelet Volume 10.3 fL (7.4-10.4); Monocytes # 0.4 10^3/uL (0.2-0.9); Neutrophils # 6.39 10^3/uL (1.8-7.7); Neutrophils % 68.5 %; Nucleated Red Blood Cells % 0 %; Platelet Count 197 10^3/cmm (157-399); Red Blood Count 5.04 10^6/uL (3.85-5.65); Red Cell Distribution Width 16.5 % (12.1-15.1); White Blood Count 9.33 10^3/uL (3.29-11.43)
[2024-10-29 13:15] LABS: Alanine Aminotransferase 19 U/L (0-33); Albumin Level 4.1 g/dL (3.5-5.2); Alkaline Phosphatase 98 U/L (35-105); Anion Gap 17.9 (5-19); Aspartate Amino Transferase 20 U/L (0-32); Blood Urea Nitrogen 27 mg/dL (8-23); Calcium 9.7 mg/dL (8.5-10.5); Carbon Dioxide 29 mmol/L (22-29); Chloride 97 mmol/L (98-107); Estmated Average Glucose 166; Globulin 3.6 g/dL (1.3-4.6); Glomerular Filtration Rate 37.2 mL/min (90-130); Glucose 176 mg/dL (65-115); Hemoglobin A1C 7.4 % (4.0-6.0); Osmolality Calculated 299 mOsm/kg (285-295); Potassium 3.9 mmol/L (3.5-5.1); Sodium 140 mmol/L (136-145); Total Bilirubin 0.4 mg/dL (0.15-1.2); Total Protein 7.7 g/dL (6.6-8.7)
[2024-10-29 13:29] LABS: 25 Hydroxy Vitamin D 30 ng/mL (30-100)
== END 2024-10-29 12:11 | disposition home or self-care (01) ==
LOC: LAB 12:13
PROVIDERS: PCP Family Medicine; Visit Provider Family Medicine
DX: E55.9 Vitamin D deficiency, unspecified (principal); Z51.81 Encounter for therapeutic drug level monitoring; E11.9 Type 2 diabetes mellitus without complications
CPT/HCPCS: 80053; 82306; 83036; 85025